=== PATIENT | female | born 1965 | race Caucasian/White ===

== ENCOUNTER → 2018-04-11 07:15 | Outpatient (CLI) | payer OTHER, SELFPAY ==
[2018-02-19 07:32] VITALS: BMI 24.1
--- NOTE | 2018-04-11 07:18 | BI_ITS ---
MAMMOGRAPHY - BILATERAL SCREENING REASON FOR EXAM: Female, 52 years old. Routine annual screening examination. PERTINENT HISTORY: Mother with breast cancer. Aunt with breast cancer. TECHNIQUE: Digital bilateral breast marlene (3D mammographic acquisition) in the CC and MLO projections. 2-D mediolateral oblique (MLO) and craniocaudad (CC) views of both breasts were obtained. CAD: Full Field Digital Mammography with Computer Added Detection was performed. COMPARISON: Comparison is made with prior examination dated January 12, 2017 and prior outside examination dated March 24, 2015. FINDINGS: Breast Composition: The breasts are extremely dense, which lowers the sensitivity of mammography. There is a 9.1 mm x 8.5 mm well-defined nodule in the upper deep lateral portion of the left breast. This has decreased in size. Adjacent to this, there is a persistent 1.7 cm x 1.8 cm well-defined nodule suggestive of a cyst. The previously seen nodular densities in the left breast have decreased in size. This also evidence of a 1.6 cm x 1 cm well-defined nodule in the inferior lateral aspect of the right breast. Prior sonogram demonstrated to be multiple bilateral cysts. BI/SCREENING MAMM (CAD), BILAT IMPRESSION: Since prior study, there is been a decrease in size of the bilateral nodular densities which were demonstrated to be multiple cysts on prior sonogram. Yearly follow-up mammogram recommended. (A) ASSESSMENT CATEGORY: BIRADS Category 2: Benign. A letter regarding these results will be sent to the patient by the facility within 30 days. Approximately 10% of breast cancers are not detected by mammography. A normal mammogram should not delay biopsy of a clinically suspicious abnormality. [id number] Electronically Signed: Ac Escobedo MD at 8:39 EST , Service support ,
== END ==
PROVIDERS: Family Provider Student in an Organized Health Care Education/Training Program; PCP Student in an Organized Health Care Education/Training Program; Referring Provider Nurse Practitioner Women's Health; Visit Provider Nurse Practitioner Women's Health
DX: Z12.31 Encounter for screening mammogram for malignant neoplasm of breast (principal)
CPT/HCPCS: 77063; 77067

== ENCOUNTER → 2019-04-14 14:13 | Outpatient (CLI) | payer OTHER, SELFPAY ==
[2018-04-15 14:58] VITALS: BMI 24.1
--- NOTE | 2019-04-14 14:14 | BI_ITS ---
MAMMOGRAPHY - BILATERAL SCREENING REASON FOR EXAM: Female, 53 years old. Routine annual screening examination. PERTINENT HISTORY: Mother with breast cancer. Aunt with breast cancer. TECHNIQUE: Digital bilateral breast franky (3D mammographic acquisition) in the CC and MLO projections. 2-D mediolateral oblique (MLO) and craniocaudad (CC) views of both breasts were obtained. CAD: Full Field Digital Mammography with Computer Added Detection was performed. COMPARISON: Comparison is made with prior examination dated April 11, 2018 and January 12, 2017. FINDINGS: Breast Composition: The breasts are extremely dense, which lowers the sensitivity of mammography. There are no dominant masses or suspicious calcifications there is a 2.6 x 2.2 cm well-defined nodule in the upper slightly lateral deep portion of the left breast. This has increased in size as compared to prior study. Stable 9.1 mm x 8.5 mm nodule in the mid left breast. This also evidence of a 1.4 cm x 2.1 cm well-defined nodule in the inferior lateral aspect of the right breast. Prior ultrasound of the breast demonstrated these to be multiple cysts. No other significant abnormalities are identified. BI/SCREEN MAMM (CAD) W/FRANKY BILAT IMPRESSION: Bilateral breast nodules as described more prominent on the left side. One nodule has increased in size. Correlation with ultrasound is recommended. Yearly follow-up mammogram recommended. (A) ASSESSMENT CATEGORY: BIRADS Category 0: Incomplete. Need additional imaging evaluation. A letter regarding these results will be sent to the patient by the facility within 30 days. Approximately 10% of breast cancers are not detected by mammography. A normal mammogram should not delay biopsy of a clinically suspicious abnormality. [id number] Electronically Signed: Ac Escobedo, at 15:20 EST , Service support ,
== END ==
PROVIDERS: Family Provider Student in an Organized Health Care Education/Training Program; PCP Student in an Organized Health Care Education/Training Program; Referring Provider Nurse Practitioner Women's Health; Visit Provider Nurse Practitioner Women's Health
DX: Z12.31 Encounter for screening mammogram for malignant neoplasm of breast (principal); Z80.3 Family history of malignant neoplasm of breast
CPT/HCPCS: 77063; 77067

== ENCOUNTER → 2019-04-15 15:26 | Outpatient (CLI) | payer OTHER, SELFPAY ==
[2018-04-15 14:58] VITALS: BMI 24.1
--- NOTE | 2019-04-15 15:29 | US_ITS ---
STUDY: ULTRASOUND BREAST - LEFT REASON FOR EXAM: Female, 53 years old. Abnormal screening mammogram. TECHNIQUE: Axial and longitudinal images of the LEFT breast were performed with a high resolution ultrasound transducer. # OF IMAGES: 55 COMPARISON: Comparison is made with prior mammogram dated April 14, 2019. FINDINGS: LEFT Breast: Multiple cysts are seen throughout the breast. The largest cyst measures 2.7 cm x 2.4 cm x 1.5 cm. This is at the 12:00 position in the breast at 2 cm from nipple. There is also evidence of a 1.2 cm x 0.6 cm x 0.8 cm well-defined hypoechoic solid nodule at the 4:00 position of the breast at 2 cm from nipple. A biopsy is recommended. US/Breast Limited Unilateral IMPRESSION: Multiple cysts are seen throughout the breast as described. There is a 1.2 cm x 0.6 cm x 0.8 cm solid nodule at the 4:00 position of the breast at 2 cm from nipple. A biopsy recommended. ASSESSMENT CATEGORY: BIRADS Category 4: Suspicious - Biopsy Should Be Considered. A letter regarding these results will be sent to the patient by the facility within 30 days. Electronically Signed: Ac Escobedo, at 16:17 EST , Service support ,
== END ==
PROVIDERS: PCP Student in an Organized Health Care Education/Training Program; Referring Provider Nurse Practitioner Women's Health; Visit Provider Nurse Practitioner Women's Health
DX: N60.02 Solitary cyst of left breast (principal)
CPT/HCPCS: 76642

== ENCOUNTER → 2019-04-25 13:42 | Outpatient (CLI) | payer OTHER, SELFPAY ==
[2019-04-21 14:39] VITALS: BMI 24.1
--- NOTE | 2019-04-25 13:57 | US_ITS ---
STUDY: ULTRASOUND BREAST - LEFT REASON FOR EXAM: Female, 53 years old. Ultrasound guided left breast biopsy. TECHNIQUE: Axial and longitudinal images of the LEFT breast were performed with a high resolution ultrasound transducer. # OF IMAGES: 11 COMPARISON: Comparison is made with prior ultrasound of the left breast dated April 15, 2019. FINDINGS: LEFT Breast: Under direct sonographic guidance, the surgeon performed core biopsies of the 1.2 cm x 0.6 cm x 0.8 cm hypoechoic nodule at the 4:00 position of the breast at 2 cm from the nipple. US/US Breast Biopsy 1st Lesion IMPRESSION: Successful ultrasound-guided biopsy of the hypoechoic nodule at the 4:00 position of the breast at 2 cm from the nipple. ASSESSMENT CATEGORY: BIRADS Category 2: Benign. A letter regarding these results will be sent to the patient by the facility within 30 days. Electronically Signed: Ac Escobedo, at 15:43 EST , Service support ,
--- NOTE | 2019-04-25 14:15 | BRBX_PTH ---
PATIENT: KELLEN DECKER LOC: [facility] U#:[id number] AGE/SX: 59/F ROOM: RE04/25/[address]: Dr. Murali Ackerman MD : 1965 BED: DIS: SPEC #: [id number] RECD: 04/25/19 14:34 STATUS: VILMA REPranav #: [id number] GIUSEPPE: 04/25/19 14:[address]: Murali Ackerman DEPT: SURGICAL PATHOLOGY RECD BY: John Mcclellan ENTERED: 04/28/19 08:19 SP TYPE: BREAST BX OTHR DR: Dr. Rajan Andrew DO Tissues: Left breast, NOS Procedures: Surgery Specimen Level IV HEADER OPERATION: Breast biopsy PRE-OP DIAGNOSIS: Left breast mass TISSUE SUBMITTED: Left breast biopsy 4 o'clock, 2 cm from nipple ISCHEMIC TIME: 1 minute FIXATION TIME: 77.5 hours MICROSCOPIC DIAGNOSIS Left breast mass, needle core biopsy: Focal involutional change. No evidence of malignancy. AM:deana 04/29/19 MICROSCOPIC DESCRIPTION Slides are reviewed. GROSS DESCRIPTION Received is one container labeled with the patient's name and not further designated. The specimen consists of an irregular fragment of sigala tissue measuring 0.2 x 0.1 x <0.1 cm. The specimen is totally submitted in one cassette. / AM:deana 04/28/19 TC:5 CPT: 26541
== END ==
PROVIDERS: PCP Student in an Organized Health Care Education/Training Program; Referring Provider Surgery; Visit Provider Surgery
DX: R92.8 Other abnormal and inconclusive findings on diagnostic imaging of breast (principal)
CPT/HCPCS: 19083; 88305

== ENCOUNTER → 2020-08-26 08:56 | Outpatient (CLI) | payer OTHER, SELFPAY ==
[2019-05-21 13:36] VITALS: BMI 24.1
--- NOTE | 2020-08-26 08:59 | RAD_ITS ---
STUDY: X-RAY - RIGHT KNEE REASON FOR EXAM: Female, 54 years old. MEDIAL KNEE PAIN TECHNIQUE: 4 view(s) of the knee. COMPARISON: None. FINDINGS: Normal visualized distal femur. Normal visualized proximal tibia and fibula. Normal proximal tibiofibular articulation. Normal medial femorotibial compartment. Normal lateral femorotibial compartment. Normal patellofemoral articulation. There is no demonstrated joint effusion. The soft tissue structures are unremarkable. RAD/Knee 4 or More Views IMPRESSION: Normal x-ray examination of the knee. Electronically Signed: Luis Arrington MD ([place]) at 15:17 EDT , Service support ,
== END ==
PROVIDERS: PCP Student in an Organized Health Care Education/Training Program
DX: M25.561 Pain in right knee (principal)
CPT/HCPCS: 73564

== ENCOUNTER → 2020-10-29 08:47 | Outpatient (CLI) | payer OTHER, SELFPAY ==
[2020-10-19 14:08] VITALS: BMI 28.3
--- NOTE | 2020-10-29 08:49 | BI_ITS ---
MAMMOGRAPHY - BILATERAL DIAGNOSTIC REASON FOR EXAM: Female, 55 years old. Left breast erythema. History of breast cysts. PERTINENT HISTORY: Mother with breast cancer. Aunt with breast cancer. TECHNIQUE: Digital bilateral breast marlene (3D mammographic acquisition) in the CC and MLO projections. 2-D mediolateral oblique (MLO) and craniocaudad (CC) views of both breasts were obtained. CAD: Full Field Digital Mammography with Computer Added Detection was performed. COMPARISON: Comparison is made with prior study dated 04/11/2018 and 04/14/2019. FINDINGS: Breast Composition: The breasts are extremely dense, which lowers the sensitivity of mammography. The palpable abnormality corresponds to a 5.6 cm x 3.3 cm nodular density in the upper central portion of the left breast. There are 2 stable nodular densities in the deep aspect of the left breast. There is a new 3.3 cm x 2.4 cm well-defined nodule in the deep upper lateral aspect of the right breast. Correlation with ultrasound is recommended. No other significant abnormalities are identified. BI/DIAG MAMM W/CAD, BILAT IMPRESSION: Increase in size of bilateral breast nodules as described. Correlation with ultrasound is recommended. ASSESSMENT CATEGORY: BIRADS Category 0: Incomplete. Need additional imaging evaluation. A letter regarding these results will be sent to the patient by the facility within 30 days. Approximately 10% of breast cancers are not detected by mammography. A normal mammogram should not delay biopsy of a clinically suspicious abnormality. Electronically Signed: Ac Escobedo MD at 9:52 EDT , Service support ,
--- NOTE | 2020-10-29 08:49 | US_ITS ---
STUDY: ULTRASOUND BREAST - RIGHT REASON FOR EXAM: Female, 55 years old. Abnormal screening mammogram. TECHNIQUE: Axial and longitudinal images of the RIGHT breast were performed with a high resolution ultrasound transducer. # OF IMAGES: 124 COMPARISON: Comparison is made with prior mammogram done earlier in the day as well as prior sonogram of the right breast dated 02/08/2017. FINDINGS: RIGHT Breast: 2 dominant cysts are seen in the upper outer quadrant of the right breast. The larger cyst is at the 9 o''clock position of the breast and measures 2.9 cm x 2.6 x 2 x 1.4 cm. IMPRESSION: 2 cysts are seen in the upper outer quadrant of the right breast. ASSESSMENT CATEGORY: BIRADS Category 2: Benign. A letter regarding these results will be sent to the patient by the facility within 30 days. Electronically Signed: Ac Escobedo MD at 12:53 EDT , Service support , STUDY: ULTRASOUND BREAST - LEFT REASON FOR EXAM: Female, 55 years old. Abnormal screening mammogram. TECHNIQUE: Axial and longitudinal images of the LEFT breast were performed with a high resolution ultrasound transducer. # OF IMAGES: 124 COMPARISON: Comparison is made with prior mammogram done earlier in the day as well as prior ultrasound of the left breast dated 04/25/2019. FINDINGS: LEFT Breast: Once again, multiple cysts are seen. The largest cyst is at the 12 o''clock position of the breast and measures 4.2 cm x 3.6 cm x 2.1 cm. US/Breast Limited Unilateral IMPRESSION: Multiple breast cysts. These have increased in size as compared to prior study. ASSESSMENT CATEGORY: BIRADS Category 2: Benign. A letter regarding these results will be sent to the patient by the facility within 30 days. Electronically Signed: Ac Escobedo MD at 12:54 EDT , Service support ,
== END ==
PROVIDERS: PCP Student in an Organized Health Care Education/Training Program; Referring Provider Nurse Practitioner Women's Health; Visit Provider Nurse Practitioner Women's Health
DX: L53.9 Erythematous condition, unspecified (principal); R92.8 Other abnormal and inconclusive findings on diagnostic imaging of breast
CPT/HCPCS: 76642; 77062; 77066; G0279

== ENCOUNTER → 2021-01-12 13:46 | Outpatient (CLI) | payer OTHER, SELFPAY ==
[2021-01-18 16:33] LABS: HPV APTIMA, High Risk Negative (Negative)
== END ==
PROVIDERS: PCP Student in an Organized Health Care Education/Training Program; Referring Provider Nurse Practitioner Women's Health; Visit Provider Nurse Practitioner Women's Health
DX: N76.0 Acute vaginitis (principal); N95.1 Menopausal and female climacteric states
CPT/HCPCS: 36415; 83001; 87070; 87205; 87624; 88175; G0145

== ENCOUNTER → 2021-02-07 16:53 | Outpatient (CLI) | payer OTHER, SELFPAY ==
--- NOTE | 2021-02-07 | EMB_PTH ---
PATIENT: KELLEN DECKER LOC: [facility] U#:[id number] AGE/SX: 59/F ROOM: RE02/07/[address]: DANIEL Samuel : 1965 BED: DIS: SPEC #: [id number] RECD: 02/07/21 16:34 STATUS: VILMA FAVIOLA #: [id number] GIUSEPPE: 02/07/21 00:[address]: Breanna Field NP DEPT: SURGICAL PATHOLOGY RECD BY: Parul Chicas ENTERED: 02/08/21 09:55 SP TYPE: ENDOM BX/C RON DR: Dr. Rajan Andrew DO Tissues: Endometrium, NOS Procedures: Surgery Specimen Level IV HEADER OPERATION: Endometrial biopsy PRE-OP DIAGNOSIS: Abnormal uterine bleeding TISSUE SUBMITTED: Endometrial biopsy MICROSCOPIC DIAGNOSIS Endometrial biopsy: Proliferative endometrium. SJ:deana 02/09/2021 MICROSCOPIC DESCRIPTION Slides are reviewed. GROSS DESCRIPTION Received is one container labeled with the patient's name and not further designated. The specimen consists of multiple fragments of pink hemorrhagic soft tissue mixed with mucoid tissue that in aggregate measure 3 x 2.5 x 0.3 cm. The specimen is totally submitted in one cassette. / SJ:deana 02/08/2021 TC:4 CPT: 54113
== END ==
PROVIDERS: PCP Student in an Organized Health Care Education/Training Program; Referring Provider Nurse Practitioner Women's Health; Visit Provider Nurse Practitioner Women's Health
DX: N93.9 Abnormal uterine and vaginal bleeding, unspecified (principal)
CPT/HCPCS: 88305

== ENCOUNTER → 2021-12-22 | Outpatient (CLI) | payer OTHER, SELFPAY ==
--- NOTE | 2021-12-22 07:25 | MRI_ITS ---
STUDY: MRI RIGHT KNEE REASON FOR EXAM: Female, 56 years old. TRAUMA, MEDIAL KNEE PAIN TECHNIQUE: Standardized fat and water weighted pulse sequences were obtained in all 3 orthogonal planes. COMPARISON: X-ray of the right knee dated AUGUST 26, 2020 FINDINGS: Complex tearing is present in the body of the medial meniscus mild intrasubstance signal abnormality is present in the posterior horn of the medial meniscus. Normal anterior horn. There is diffuse, less than 50% thickness articular cartilage loss of the medial femorotibial compartment. Mild to moderate patchy serpiginous signal in the posterior nonweightbearing aspect of the medial femoral condyle is consistent with avascular necrosis. No demonstrated fragmentation or displaced ossicles. Normal tibial plateau. Normal medial collateral ligamentous complex (MCL). Normal distal semimembranosus, gracilis and semitendinosus tendons. Mild intrasubstance degenerative signal and swelling is also present in the posterior horn root insertion of the lateral meniscus. Normal anterior horn and body of the lateral meniscus. Normal hyaline cartilage of the lateral femorotibial compartment. Normal lateral femoral condyle and tibial plateau. Normal proximal tibiofibular articulation. Normal lateral collateral (fibular) ligament. Normal popliteus tendon. Normal biceps femoris tendon. Normal anterior cruciate ligament (ACL). Normal posterior cruciate ligament (PCL). Normal congruent patellofemoral articulation. Normal hyaline cartilage of the patellofemoral compartment. Normal medial and lateral patellar retinaculum. Normal quadriceps tendon. Normal patellar tendon. Normal Hoffa''s fat pad. A small joint effusion is present. The soft tissues are unremarkable. The otherwise visualized osseous structures are unremarkable. MRI/Lower Ext Joint Only (Routine) IMPRESSION: 1. 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 Complex tearing of the body of the medial meniscus 3. Mild intrasubstance degenerative signal and swelling is also present in the posterior horn root insertion of the lateral meniscus. Normal anterior horn and body of the lateral meniscus. Electronically Signed: Galileo Barr MD at 15:19 EDT ,
== END | disposition home or self-care (01) ==
PROVIDERS: PCP Student in an Organized Health Care Education/Training Program; Referring Provider Family Medicine; Visit Provider Family Medicine
DX: M25.561 Pain in right knee (principal)
CPT/HCPCS: 73721

== ENCOUNTER → 2022-01-19 | Outpatient (CLI) | payer OTHER, SELFPAY ==
--- NOTE | 2022-01-19 12:58 | BD_ITS ---
STUDY: DUAL ENERGY X-RAY ABSORPTIOMETRY / DXA REASON FOR EXAM: Female, 56 years old. [id number] TECHNIQUE: Bone Mineral Density (BMD) measurements of lumbar spine and bilateral hips were obtained. COMPARISON: None. FINDINGS: Lumbar Spine (L1-L4): g/cm2 (1.133) / T-score (0.8) / Z-score (1.9) Findings are suggestive of normal bone density with a low fracture risk. Left Femur Total: g/cm2 (0.887) / T-score (-0.5) / Z-score (0.3) Left Femoral Neck: g/cm2 (0.820) / T-score (-0.3) / Z-score (0.8) Right Femur Total: g/cm2 (0.840) / T-score (-0.8) / Z-score (-0.1) Right Femoral Neck: g/cm2 (0.764) / T-score (-0.8) / Z-score (0.3) BD/Dexa Bone Density Study IMPRESSION: The patient is considered normal as outlined below according to World Jaziel Organization (WHO) criteria with a low fracture risk. Reference Information: The T-score is the number of standard deviations above or below the standard which is normal for young adults at their peak bone mineral density. The World Health Organization (WHO) interprets the T-scores as follows: Above -1 Normal bone density Between -1 and -2.5 Osteopenia Equal to / or below -2.5 Osteoporosis As a practical clinical guideline, osteopenia may be graded as follows: Mild -1 through -1.5 Moderate -1.6 through -2.0 Severe -2.1 through -2.4 The Z-score is the number of standard deviations above or below age-matched controls. A Z-score of less than -1.5 would be considered abnormal. References: 1. NIH Osteoporosis and Related Bone Diseases www osteo.org 2. International Society for Clinical Densitometry www iscd.org 3. National Osteoporosis Foundation www nof.org Electronically Signed: Ac Escobedo MD at 13:49 EST ,
--- NOTE | 2022-01-19 13:21 | BI_ITS ---
MAMMOGRAPHY - BILATERAL SCREENING REASON FOR EXAM: Female, 56 years old. Routine annual screening examination. PERTINENT HISTORY: Mother with breast cancer. Aunt with breast cancer. History of prior bilateral breast aspirations. TECHNIQUE: Digital bilateral breast franky (3D mammographic acquisition) in the CC and MLO projections. 2-D mediolateral oblique (MLO) and craniocaudad (CC) views of both breasts were obtained. CAD: Full Field Digital Mammography with Computer Added Detection was performed. COMPARISON: Comparison is made with prior examination 10/29/2020 and 04/14/2019. FINDINGS: Breast Composition: The breasts are heterogeneously dense, which may obscure small masses. There is a 5.8 cm x 4.7 cm well-defined nodular density in the central portion of the left breast. This is new as compared to prior study. Stable 7.1 mm nodule in the central posterior aspect of the left breast. The previously seen 2.4 cm x 3.3 cm nodule in the right breast as clear. No other significant abnormalities are identified. BI/SCRN MAMM (CAD)W/FRANKY BILAT IMPRESSION: Interval increase in size of a dominant nodule in the central portion of the left breast. Correlation with ultrasound is recommended. ASSESSMENT CATEGORY: BIRADS Category 0: Incomplete. Need additional imaging evaluation. A letter regarding these results will be sent to the patient by the facility within 30 days. Approximately 10% of breast cancers are not detected by mammography. A normal mammogram should not delay biopsy of a clinically suspicious abnormality. [id number] Electronically Signed: Ac Escobedo MD at 14:17 EST ,
== END | disposition home or self-care (01) ==
PROVIDERS: PCP Student in an Organized Health Care Education/Training Program; Visit Provider Student in an Organized Health Care Education/Training Program
DX: Z78.0 Asymptomatic menopausal state (principal); Z12.31 Encounter for screening mammogram for malignant neoplasm of breast
CPT/HCPCS: 77063; 77067; 77080

== ENCOUNTER → 2022-01-23 | Outpatient (CLI) | payer OTHER, SELFPAY ==
--- NOTE | 2022-01-23 07:48 | RAD_ITS ---
STUDY: X-RAY - LUMBAR SPINE REASON FOR EXAM: Female, 56 years old. PAIN TECHNIQUE: 3 view(s) of the lumbar spine were obtained. COMPARISON: None FINDINGS: Normal lumbar lordosis. There is no substantial scoliosis. There is a normal alignment of the vertebrae. Normal vertebral bodies and endplates. Normal disc space heights, disc space narrowing at L5/S1. There is no demonstrated fracture. The soft tissue structures are unremarkable. RAD/Lumbar Spine 2 or 3 Views IMPRESSION: Degenerative changes at L5/S1, otherwise unremarkable lumbar spine Electronically Signed: Vipin Drake MD at 10:56 EST ,
--- NOTE | 2022-01-23 07:49 | RAD_ITS ---
STUDY: X-RAY - PELVIS AND BILATERAL HIPS REASON FOR EXAM: Female, 56 years old. PAIN TECHNIQUE: AP view of the pelvis.? 2 views of the right hip, and 2 views of the left hip were obtained. COMPARISON: None. FINDINGS: There is a non-specific bowel gas pattern. Normal visualized soft tissue structures. Normal bilateral iliac wings, sacroiliac joints and visualized sacrum. Normal bilateral superior and inferior pubic rami. Normal pubic symphysis. Normal bilateral ischial tuberosities. Normal visualized right femoral head. Normal right acetabulum. Normal right hip joint. Normal visualized left femoral head. Normal left acetabulum. Normal left hip joint. RAD/Hips B/L min 2 views w/ Pelvis IMPRESSION: Normal x-ray examination of the pelvis and bilateral hips. Electronically Signed: Vipin Drake MD at 10:57 EST ,
--- NOTE | 2022-01-23 07:56 | RAD_ITS ---
STUDY: X-RAY - LEFT FOOT CLINICAL: Female, 56 years old. PAIN TECHNIQUE: 3 view(s) of the foot. COMPARISON: None. FINDINGS: Normal talus and tarsal bones. Calcaneal spurs Normal visualized subtalar, talonavicular, calcaneocuboid, tarsal and tarsometatarsal articulations. Normal metatarsi. Normal metatarsophalangeal joint of the great toe. Normal tibial and fibular sesamoid bones. Normal interphalangeal joint of the great toe. Normal phalanges of the great toe. Normal second through fifth metatarsophalangeal joints. Normal interphalangeal joints and phalanges of the lesser toes. The soft tissue structures are unremarkable. RAD/Foot min 3 Views IMPRESSION: Calcaneal spurs, otherwise unremarkable left foot Electronically Signed: Vipin Drake MD at 10:55 EST ,
--- NOTE | 2022-01-23 08:05 | RAD_ITS ---
STUDY: X-RAY - RIGHT FOOT CLINICAL: Female, 56 years old. PAIN TECHNIQUE: 3 view(s) of the foot. COMPARISON: None. FINDINGS: Normal talus and tarsal bones. Calcaneal spurs Normal visualized subtalar, talonavicular, calcaneocuboid, tarsal and tarsometatarsal articulations. Normal metatarsi. Normal metatarsophalangeal joint of the great toe. Normal tibial and fibular sesamoid bones. Normal interphalangeal joint of the great toe. Normal phalanges of the great toe. Normal second through fifth metatarsophalangeal joints. Normal interphalangeal joints and phalanges of the lesser toes. The soft tissue structures are unremarkable. RAD/Foot min 3 Views IMPRESSION: Calcaneal spurs, otherwise unremarkable right foot Electronically Signed: Vipin Drake MD at 10:56 EST ,
[2022-01-23 08:15] LABS: Absolute Lymphocyte Count 1.16 X10^3/uL (0.83-4.51); Absolute Neutrophil Count 2.6 X10^3/uL (2.0-7.7); Basophil# 0.04 X10^3/uL; Basophil% 0.9 % (0-1); Eosinophil# 0.15 X10^3/uL; Eosinophils% 3.5 % (0-5); Hematocrit 40.3 % (37-47); Hemoglobin 13.8 g/dL (12.0-15.0); Lymphocyte # 1.16 X10^3/ul (0.83-4.51); Lymphocyte % 26.9 % (19-41); Mean Corp Hgb Conc 34.2 g/dL (32-36); Mean Corpuscular Hgb 31.4 pg (27.0-32.0); Mean Corpuscular Volume 91.8 fL (81-99); Mean Platelet Vol. 10.1 fl (6.2-12.0); Monocyte# 0.34 X10^3/uL; Monocyte% 7.9 % (0-10); NRBC Flagged by Analyzer 0 % (0-5); Neutrophil # 2.62 X10^3/uL (2.7-7.7); Neutrophil % 60.6 % (47-70); Platelet Count 243 K/mm3 (150-450); RBC Distribution Width CV 11.8 % (11.6-14.6); Red Blood Count 4.39 M/mm3 (4.2-5.4); White Blood Count 4.3 K/mm3 (4.4-11.0)
[2022-01-23 08:44] LABS: Vitamin B12 251 pg/mL (211-911); Vitamin D,25 Hydroxy 19.2 ng/mL
[2022-01-23 08:51] LABS: ALB/GLOB Ratio 1.2 RATIO (0.9-2.4); AST(SGOT) 18 U/L (15-37); Alanine Aminotransfer ALT/SGPT 24 U/L (13-56); Albumin, Serum 3.8 g/dL (3.2-5.0); Alkaline Phosphatase 46 U/L (45-117); Anion Gap 7 (5-15); BUN 12 mg/dL (7-18); BUN/Creat Ratio 14.7 RATIO (10-20); Calcium,Total 9.5 mg/dL (8.5-10.1); Chloride 105 mmol/L (98-107); Cholesterol 253 mg/dL (200); Creatinine, Serum 0.82 mg/dL (0.55-1.02); EST Glomerular Filtration Rate 77 mL/min (>60); Est Glom Filt Rate - Afr Amer 93 mL/min (>60); Globulin 3.3 g/dL (2.2-4.2); Glucose 83 mg/dL (74-106); High Density Lipoprotein 103 mg/dL; Potassium 3.9 mmol/L (3.5-5.1); Protein, Total 7.1 g/dL (6.4-8.2); Sodium Level 138 mmol/L (136-145); Thyroid Stim Hormone (TSH) 3.68 uIU/mL (0.358-3.74); Triglycerides 89 mg/dL; Very Low Density Lipoprotein 18 mg/dL (5-40)
[2022-01-23 09:13] LABS: Hemoglobin A1c 4.8 % (3.8-5.6)
--- NOTE | 2022-01-23 09:23 | US_ITS ---
STUDY: ULTRASOUND BREAST - LEFT REASON FOR EXAM: Female, 56 years old. Abnormal screening mammogram. TECHNIQUE: Axial and longitudinal images of the LEFT breast were performed with a high resolution ultrasound transducer. # OF IMAGES: 25 COMPARISON: Comparison is made with prior mammogram dated 01/19/2022 and prior sonogram of the left breast dated 10/29/2020. FINDINGS: LEFT Breast: Once again, multiple cysts are seen. The largest cyst measures 5.5 cm x 4.2 cm x 2.6 cm. This is at the 2 o''clock position of the breast at 2 cm from the nipple. A similar-appearing cyst is seen at the 3 o''clock position of the breast at 5 cm from the nipple. This measures 2 cm x 1.8 cm x 0.7 cm. US/Breast Limited Unilateral IMPRESSION: Multiple cysts are seen. The largest cyst measures 5.5 cm x 4.2 cm by 2.6 cm. This is at the 12 o''clock position of the breast at 2 cm from the nipple. ASSESSMENT CATEGORY: BIRADS Category 2: Benign. A letter regarding these results will be sent to the patient by the facility within 30 days. Electronically Signed: Ac Escobedo MD at 11:04 EST ,
== END | disposition home or self-care (01) ==
PROVIDERS: PCP Student in an Organized Health Care Education/Training Program; Referring Provider Student in an Organized Health Care Education/Training Program; Visit Provider Nurse Practitioner Women's Health
DX: Z00.00 Encounter for general adult medical examination without abnormal findings (principal); E78.5 Hyperlipidemia, unspecified; M79.671 Pain in right foot; M79.672 Pain in left foot; M54.50 Low back pain, unspecified; G89.29 Other chronic pain; M25.551 Pain in right hip; M25.552 Pain in left hip; M25.561 Pain in right knee; R92.8 Other abnormal and inconclusive findings on diagnostic imaging of breast
CPT/HCPCS: 36415; 72100; 73521; 73630; 76642; 80053; 80061; 82306; 82607; 83036; 84439; 84443; 85025

== ENCOUNTER → 2022-02-16 | Outpatient (CLI) | payer OTHER, SELFPAY ==
--- NOTE | 2022-02-16 12:50 | RAD_ITS ---
STUDY: X-RAY - RIGHT KNEE REASON FOR EXAM: Female, 56 years old. Knee pain following injury. TECHNIQUE: 2 view(s) of the knee. COMPARISON: None. FINDINGS: Normal visualized distal femur. Normal visualized proximal tibia and fibula. Normal proximal tibiofibular articulation. Normal medial femorotibial compartment. Normal lateral femorotibial compartment. Normal patellofemoral articulation. The soft tissue structures are unremarkable. RAD/Knee 1 or 2 Views IMPRESSION: Normal x-ray examination of the knee. Electronically Signed: Ac Escobedo MD at 15:13 EST ,
== END | disposition home or self-care (01) ==
LOC: RAD 12:49
PROVIDERS: PCP Student in an Organized Health Care Education/Training Program; Visit Provider Student in an Organized Health Care Education/Training Program
DX: M25.561 Pain in right knee (principal)
CPT/HCPCS: 73560

== ENCOUNTER → 2024-06-13 | Outpatient (CLI) | payer OTHER, SELFPAY ==
--- NOTE | 2024-06-13 11:00 | BI_ITS ---
EXAM: SCRN MAMM (CAD)W/FRANKY BILAT 06/13/2024 CLINICAL HISTORY: F, Age 58 y/o , SCREEN FOR BREAST CANCER TECHNIQUE: Bilateral screening digital breast tomosynthesis with 2D and 3D images. Computer aided detection. COMPARISON: Prior exam(s) dated 01/19/2022, 01/23/2022. FINDINGS: TISSUE DENSITY: The breast tissue is heterogenously dense, which may obscure small masses. The mammogram demonstrates that the patient has dense breasts. Supplemental screening with whole breast ultrasound or MRI may be considered for further evaluation. Bilateral Breast Mammographic Findings: No significant masses, calcifications or other abnormalities are identified. BI/SCRN MAMM (CAD)W/FRANKY BILAT IMPRESSION: Right Breast: BIRADS 1 NEGATIVE. Left Breast: BIRADS 1 NEGATIVE. OVERALL FINAL ASSESSMENT: BIRADS 1 NEGATIVE. RECOMMENDATION: Routine annual follow-up in 1 Year A letter with findings and recommendations will be mailed to the patient. Reading Location: [id number]
== END | disposition home or self-care (01) ==
PROVIDERS: PCP Student in an Organized Health Care Education/Training Program; Referring Provider Nurse Practitioner Family; Visit Provider Nurse Practitioner Family
DX: Z12.31 Encounter for screening mammogram for malignant neoplasm of breast (principal)
CPT/HCPCS: 77063; 77067

== ENCOUNTER → 2024-11-11 | Outpatient (CLI) | payer OTHER, SELFPAY ==
--- NOTE | 2024-11-11 16:00 | BD_ITS ---
PROCEDURE: DEXA BONE DENSITY STUDY 11/11/2024 REASON FOR EXAM: F, age 59 y/o . Postmenopausal. TECHNIQUE: Procedure Code: BDDBD Modality: DX Procedure: DEXA BONE DENSITY STUDY COMPARISON: January 19, 2022. FINDINGS: BMD and T-SCORES Lumbar spine: 1.122 g/cm2, T-score 0.7 Levels: L1 through L4 Change from prior: Loss of 1%. Left femoral neck: 0.774 g/cm2, T-score -0.7 Femoral neck comparison data not recommended for monitoring change. Left total hip: 0.862 g/cm2, T-score -0.7 Change from prior: Loss of 2.8%. Right femoral neck: 0.766 g/cm2, T-score -0.7 Femoral neck comparison data not recommended for monitoring change. Right total hip: 0.843 g/cm2, T-score -0.8 Change from prior: Improvement of 9.4%. The World Health Organization has defined the following categories based on bone density: Normal bone density: T-score equal to or greater than -1.0 Osteopenia: T-score between -1.0 and -2.5 Osteoporosis: T-score equal to or less than -2.5 FRAX (or Comparable) Fracture Risk Assessment: 10 Year Probability of Fracture: Major Osteoporotic Fracture: 6.5% Hip Fracture: 0.3% (Note: FRAX is not to be reported in setting of normal range bone density, osteoporosis on DEXA, known history of osteoporosis, prior osteoporotic hip or vertebral fracture, or for any patient undergoing pharmacological treatment for bone loss.) The National Osteoporosis Foundation (NOF) recommends pharmacological treatment for patients with a FRAX 10-year risk of 3% or higher for a hip fracture, or 20% or higher for a major osteoporotic fracture, to prevent osteoporosis and reduce fracture risk. The patient does not meet the pharmacological treatment recommendations for prevention of osteoporosis. BD/Dexa Bone Density Study IMPRESSION: NORMAL T-SCORES. Recommend follow-up as clinically warranted. Reading [id number]
== END | disposition home or self-care (01) ==
LOC: OPBD 15:57
PROVIDERS: PCP Student in an Organized Health Care Education/Training Program; Referring Provider Nurse Practitioner Primary Care; Visit Provider Nurse Practitioner Primary Care
DX: Z78.0 Asymptomatic menopausal state (principal)
CPT/HCPCS: 77080

== ENCOUNTER → 2024-11-12 | Outpatient (CLI) | payer OTHER, SELFPAY ==
--- NOTE | 2024-11-12 12:54 | CT_ITS ---
PROCEDURE: LIMITED CHEST CT CARDIAC ONLY 11/12/2024 REASON FOR EXAM: CAD SCREENING, LOW CAD RISK TECHNIQUE: Procedure Code: [id number] Modality: CT Procedure: LIMITED CHEST CT CARDIAC ONLY CONTRAST: None One or more dose reduction techniques were used (e.g., Automated exposure control, adjustment of the mA and/or kV according to patient size, use of iterative reconstruction technique). RADIATION DOSE SUMMARY: CTDlvol: 12.19 mGy DLP: 219.48 mGycm COMPARISON: None FINDINGS: No significant coronary artery calcification is seen. The heart is nonenlarged. No evidence of pericardial effusion. The visualized portions of the lungs is unremarkable. CT/Limited Chest CT Cardiac Only IMPRESSION: No significant coronary artery calcification is seen. Reading Location: [place] [id number]
--- OUTSIDE RECORDS SUMMARY | 2024-11-12 23:12 | XMS RPT_ITS | CCD ---
Author Organization [facility] Care Team Providers Care Machine Staker Name Role Phone DIEGO Davila RN, Arlin Huang Unavailable Unavailgraciela Field WELDING TEACHER, Breanna Gracia Unavailable Marjan Hunt Unavailable Unavailable Rajan Malone DO Primary Care Provider Rajan Malone DO Primary Care Provider Rajan Malone DO Primary Care Provider Dr. Rajan Malone Primary Care Provider Dr. Rajan Malone Referring Provider Dr. Jacinto Shaw Attending Provider Rajan Malone DO Primary Care Provider Dr. Rajan Malone DO Primary Care Provider [phone] Callie Swann Attending Provider Christiano KIM-CCallie Referring Provider Sri SHOVEL LOGGER.Elke HURLEY Unavailable Norman SHOVEL LOGGER.Praveena HURLEY Unavailable RAJAN MALONE Primary Care Unavailable WILLIAM DRAKE Attending Unavailable RAJAN MALONE Attending Unavailable RAJAN MALONE Primary Care Unavailable PRAVEENA BERRY Referring Unavailable RAJAN MALONE Primary Care Unavailable SELF Referring Unavailable PRAVEENA BERRY Attending Unavailable RAJAN MALONE Primary Care Unavailable RAJAN MALONE Primary Care Unavailable WILLIAM DRAKE Referring Unavailable Praveena Berry Referring Unavailable Rajan Malone Primary Care Unavailable Manpreet Berryanda Ailyn Attending Unavailable Rajan Malone Primary Care Unavailable Malone Rajan Referring Unavailable Callie Alvarado Attending Unavailable Malone, Rajan Primary Care Unavailable Callie Alvarado Attending Unavailable Callie Alvarado Referring Unavailable Malone Rajan Primary Care Unavailable Praveena Berry Attending Unavailable Praveena Berry Referring Unavailable Kamran Rajan Primary Care Unavailable Praveena Berry Attending Unavailable Praveena Berry Referring Unavailable Kamran Rajan Attending Unavailable MaloneRajan marsh Referring Unavailable Malone, Rajan Primary Care Unavailable Medications Current Medications Medication Drug Class(es) Dates Sig (Normalized) Sig (Original) cholecalciferol 0.05 mg oral capsule (9 sources) Vitamin D Start: 01-12-2021 End: 03-14-2022 take 1 capsule by mouth once daily Cholecalciferol, Vitamin D3, 50 mcg (2,000 unit) cap Take 50 mcg by mouth once daily. 01/12/2021 Active meloxicam 15 mg oral tablet (15 sources) Nonsteroidal Anti-inflammatory Drug Start: 02-28-2022 take 1 tablet by mouth once daily meloxicam (MOBIC) 15 mg tablet Indications: Plantar fasciitis Take 1 tablet by mouth once daily. 90 tablet 1 02/28/2022 Active Start: 11-09-2021 take 1 tablet by emeli th once daily meloxicam (MOBIC) 15 mg tablet Take 1 tablet by mouth once daily. 30 tablet 0 11/09/2021 Active Comment on above: Take 1 tablet by emeli th once daily. metFORMIN hydrochloride 500 mg oral tablet (1 source) Biguanide Start: End: take 1 tablet by mouth once daily at breakfast metFORMIN (GLUCOPHAGE) 500 mg tablet Take 1 tablet by mouth daily with breakfast. 30 tablet 2 10/31/2024 01/29/2025 Active Completed/Discontinued Medications Medication Drug Class(es) Dates Sig (Normalized) Sig (Original) betamethasone 3 mg/ml / betamethasone acetate 3 mg/ml injectable suspension (1 source) Corticosteroid Start: 11-09-2021 End: 11-09-2021 betamethasone acetate-betamethason e sodium phosphate 6 mg injection (CELESTONE) Start: 11-09-2021 End: 11-09-2021 betamethasone acetate-betame thasone sodium phosphate 6 mg injection (CELESTONE) busPIRone hydrochloride 5 mg oral tablet (1 source) Start: 04-23-2019 End: 11-09-2021 take 2.5-5 mg by mouth every eight hours as needed busPIRone (BUSPAR) 5 mg tablet Take 0.5-1 tablets by mouth three times daily as needed (anxiety). 30 tablet 2 04/23/2019 11/09/2021 Discontinued (Course of therapy completed) Comment on above: Take 0.5-1 tablets b y mouth three times daily as needed (anxiety). diclofenac sodium 75 mg delayed release oral tablet (1 source) Nonsteroidal Anti-inflammatory Drug Start: 10-19-2021 End: 11-09-2021 take 1 tablet by mouth twice daily for pain diclofenac, EC, (VOLTAREN) 75 mg EC tablet Take 1 tablet by mouth twice daily. For pain/inflammation. Take with food. 30 tablet 0 10/19/2021 11/09/2021 Discontinued (Course of therapy completed) Comment on above: Take 1 tablet by emeli twice daily. For pain/inflammation. Take with food. escitalopram 10 mg oral tablet (1 source) Serotonin Reuptake Inhibitor Start: 12-14-2020 End: 11-09-2021 escitalopram oxalate (LEXAPRO) 10 mg tablet Indications: Chronic insomnia Take 5 mg once a day at bedtime x 2 weeks then increase to 10 mg a day at bedtime 90 tablet 3 12/14/2020 11/09/2021 Discontinued (Course of therapy completed) Comment on above: Take 5 mg once a day at bedtime x 2 weeks then increase to 10 mg a day at bedtime hydrocortisone 25 mg/ml topical cream (5 sources) Corticosteroid Start: 05-11-2014 End: 04-15-2018 Hydrocortisone 1 APPLIC cream with perineal applicator Discontinued 1 NMA TOPICAL 3 TIMES DAILY NEEDED as needed for Pain May 11, 2014 1:00am April 15, 2018 3:44pm Start: 05-11-2014 End: 04-15-2018 Hydrocortisone Discontinued 1 APPLIC TOPICAL 3 TIMES DAILY NEEDED May 11, 2014 12:00am April 15, 2018 2:44pm norethindrone acetate 5 mg oral tablet (5 sources) Start: 05-21-2019 End: 10-19-2020 take 1 tablet by mouth three times daily, then take 1 tablet by mouth twice daily Norethindrone Acetate (Aygestin) 5 mg tablet Discontinued 5 mg PO .COMPLEX 45 May 21, 2019 12:00am October 19, 2020 2:09pm 5 mg PO tid until bleeding stops X 24 hr then bid to finish Rx phenylephrine 0.0025 mg/mg rectal suppository (5 sources) alpha-1 Adrenergic Agonist Start: 05-11-2014 End: 04-15-2018 Phenylephrine Hcl 1 SUPP suppository Discontinued 1 NMA RECTAL TWICE A DAY May 11, 2014 1:00am April 15, 2018 3:44pm Problems Active Problems Problem Classification Problem Date Documented Date Episodic/Chronic Anxiety disorders (18 sources) Anxiety; Translations: [Other specified anxiety disorders] Onset: 04-23-2019 04-23-2019 Chronic Disorders of lipid metabolism (20 sources) Dyslipidemia; Translations: [Hyperlipidemia, unspecified] Onset: 04-23-2019 04-23-2019 Chronic Essential hypertension (2 sources) Essential hypertension; Translations: [Essential (primary) hypertension] Onset: 09-08-2024 09-08-2024 Chronic Menopausal disorders (7 sources) Menopausal syndrome; Translations: [Menopausal and female climacteric states] Onset: 10-18-2024 01-12-2021 Chronic Miscellaneous mental health disorders (18 sources) Chronic insomnia; Translations: [Psychophysiologic insomnia] Onset: 12-14-2020 12-14-2020 Chronic Nonmalignant breast conditions (3 sources) Unspecified lump in left breast, subareolar; Translations: [Unspecified lump in left breast, subareolar] Onset: 12-25-2016 12-25-2016 Other bone disease and musculoskeletal deformities (4 sources) Other osteonecrosis, other site; Translations: [Aseptic necrosis of bone, other] Onset: 10-29-2024 Chronic Other bone disease and musculoskeletal deformities (2 sources) Osteonecrosis, unspecified; Translations: [Osteonecrosis (HCC)] Onset: 10-16-2024 Chronic Other circulatory disease (3 sources) Elevated blood-pressure reading without diagnosis of hypertension; Translations: [Elevated blood-pressure reading, without diagnosis of hypertension] 10-29-2024 Episodic Other circulatory disease (2 sources) Elevated blood-pressure reading, without diagnosis of hypertension; Translations: [Elevated BP without diagnosis of hypertension] Onset: 10-29-2024 Episodic Other connective tissue disease (1 source) Pain in both feet; Translations: [Pain in right foot] Episodic Other connective tissue disease (4 sources) Plantar fasciitis; Translations: [Plantar fascial fibromatosis] 10-16-2024 Episodic Other female genital disorders (5 sources) Abnormal uterine bleeding; Translations: [Abnormal uterine and vaginal bleeding, unspecified] 03-14-2022 Chronic Comment on above: EMB WNL Other nervous system disorders (1 source) Other chronic pain; Translations: [Chronic pain of right knee] Onset: 10-16-2024 Chronic Other nervous system disorders (1 source) Paresthesia of skin; Translations: [Tingling of both feet] Onset: 10-18-2024 Episodic Other non-traumatic joint disorders (11 sources) Pain in right knee; Translations: [Pain in joint, lower leg] Onset: 12-27-2021 Episodic Other non-traumatic joint disorders (1 source) Hip pain; Translations: [Pain in right hip] Episodic Other nutritional; endocrine; and metabolic disorders (2 sources) Hypercalcemia; Translations: [Serum calcium elevated] Onset: 10-18-2024 Chronic Other screening for suspected conditions (not mental disorders or infectious disease) (16 sources) Patient encounter status; Translations: [Encounter for screening mammogram for malignant neoplasm of breast] Onset: 07-02-2024 Episodic Residual codes; unclassified (1 source) Postmenopausal state; Translations: [Asymptomatic menopausal state] Episodic Spondylosis; intervertebral disc disorders; other back problems (1 source) Chronic low back pain; Translations: [Chronic midline low back pain without sciatica] Episodic Unclassified (1 source) Gynecologic examination ; Translations: [Encounter for gynecological examination (general) (routine) without abnormal findings] Onset: 12-25-2016 12-25-2016 Unclassified (2 sources) Chronic pain of right knee 10-29-2024 Unclassified (1 source) Heterogeneously dense tissue of both breasts on mammography; Translations: [Heterogeneously dense tissue of both breasts on mammography] Onset: 10-16-2024 Past or Other Problems Problem Classification Problem Date Documented Da te Episodic/Chronic Gastrointestinal hemorrhage (18 sources) Rectal hemorrhage; Translations: [Hemorrhage of anus and rectum] Onset: 03-10-2014 Resolved: 10-16-2024 03-10-2014 Episodic Hemorrhoids (18 sources) External hemorrhoids; Translations: [Residual hemorrhoidal skin tags] Onset: 03-10-2014 03-10-2014 Episodic Nonmalignant breast conditions (20 sources) Breast lump; Translations: [Cyst of breast] Onset: 01-03-2013 12-25-2016 Episodic Other female genital disorders (2 sources) Vaginal odor; Translations: [Other specified noninflammatory disorders of vagina] Onset: 12-25-2016 12-25-2016 Episodic Other nutritional; endocrine; and metabolic disorders (19 sources) Body mass index 25-29 - overweight; Translations: [Overweight] Onset: 04-23-2019 04-23-2019 Episodic Other nutritional; endocrine; and metabolic disorders (1 source) Overweight; Translations: [Overweight (BMI 25.0-29.9)] Onset: 04-23-2019 Episodic Residual codes; unclassified (4 sources) Menopause present; Translations: [Asymptomatic menopausal state] Onset: 01-25-2022 10-16-2024 Episodic Results Test Name Value Interpretation Reference Range Facility [facility]24 [facility] STEPHANY DINH ([id number]) 1965 F Date Time Provider Department 10/31/24 RAJAN MALONE [facility] During your visit today, we recorded the following information about you: Hellen Perez MA 10/31/2024 9:49 AM Signed See pt message We had discussed low dose Metformin to help with weight loss. Can we move forward with that? Allergies As of Date: 10/31/2024 (No Known Allergies) Date Reviewed: 10/17/2024 Reviewed by: Praveena Berry APRN.COMMERCIAL CENSUS TAKER - Fully Assessed Order(s):metFORMIN (GLUCOPHAGE) 500 mg tabletTake 1 tablet by mouth daily with breakfast.Disp: 30 tabletRfl: 2 Prescriptions as of 10/31/2024 - metFORMIN (GLUCOPHAGE) 500 mg tablet Take 1 tablet by mouth daily with breakfast. - Cholecalciferol, Vitamin D3, 50 mcg (2,000 unit) cap Take 50 mcg by mouth once daily. Meds Comments as of 10/16/2024: Stephany does take a few different vitamins including vitamin d3, and a cardio focused type of vitamin. Problem List As Of Date 10/31/2024 Noted Resolved Solitary cyst of breast [N60.09] 01/03/2013 External hemorrhoid [K64.4] 03/10/2014 Rectal bleeding [K62.5] 03/10/2014 10/16/2024 Dyslipidemia [E78.5] 04/23/2019 Well adult exam [Z00.00] 04/23/2019 Overweight (BMI 25.0-29.9) [E66.3] 04/23/2019 Situational anxiety [F41.8] 04/23/2019 Chronic insomnia [F51.04] 12/14/2020 Asymptomatic menopausal state [Z78.0] 01/25/2022 Chronic pain of right knee [M25.561, G89.29] 12/27/2021 Plantar fasciitis [M72.2] Prescriptions ordered this encounter Disp Refills Start End METFORMIN 500 MG TABLET 30 t* 2 10/31/2024 01/29/2025 Route: PO Sig: Take 1 tablet by mouth daily with breakfast. Encounter Status:Closed by PRAVEENA BERRY on 10/31/24 [facility] CNOVon 10-29-2024 CNOV Office Visit ([facility] ) BRIANNESTEPHANY A ([id number]) 1965 F Date Time Provider Department 10/29/24 10:20 AM RAJAN MALONE [facility] During your visit today, we recorded the following information about you: Temperature Pulse Respiration Blood pressure 98 degrees 68/minute 12/minute 140/86 Weight Height 82.6 kg 1.73 m Rajan Malone, DO 10/29/2024 10:[address] Arlin Gonzales Primary care physician Rajan Malone, DO 10/29/2024 12:05 PM Signed CC: Stephany Dinh is a 59 year old female who presents to the office for physical HPI: Blood pressure was mildly elevated in 140s/80s. Was seen in office and had 130s/80s in primary care office. Heart rate in the office and at rest has been controlled. She is not wanting to start on medication for this. Doesn't have symptoms of dyspnea or dizziness/LH or syncope. Is trying to make modifications in her exercise- increasing her walking. Also is eating overall healthy diet. Cutting back on some alcohol intake as well. Also limiting salt and processed foods. The 10-year ASCVD risk score (Massimo CARRILLO, et al., 2019) is: 2.7% Values used to calculate the score: Age: 59 years Clincally relevant sex: Female Is Non- : No Diabetic: No Tobacco smoker: No Systolic Blood Pressure: 140 mmHg Is BP treated: No HDL Cholesterol: 87 mg/dL Total Cholesterol: 215 mg/dL Mood, doing well overall. No new concerns. Right knee pain, chronic, seems to be worsening some. With prolonged standing and walking worse. Inner medial knee joint. Hx of some avascular necrosis. She is concerned that this is worsening. Hasn't had surgery in the past. Hasn't recently had PHYSICAL THERAPY or seen Orthopedics. PAST MEDICAL HISTORY Diagnosis Date Plantar fasciitis Solitary cyst of breast left >right breast, benign PAST SURGICAL HISTORY Procedure Laterality Date ADENOIDECTOMY PRIMARY Adenoidectomy COLONOSCOPY FLX DX W/COLLJ SPEC WHEN PFRMD 3-2-15 TONSILLECTOMY PRIMARY/SECONDARY Tonsillectomy Social History: SOCIAL HISTORY[1] FAMILY HISTORY Problem Relation Age of Onset Hearing Loss Mother Hypertension Mother Breast Cancer Mother DCIS Lung Cancer Mother Psychiatry Sister Colon Cancer Maternal Grandmother great Cancer Maternal Grandmother bone Cancer Maternal Aunt lung Breast Cancer Maternal Aunt Cancer Maternal Uncle esophageal Cancer Other cousin Current Outpatient prescriptions: Cholecalciferol, Vitamin D3, 50 mcg (2,000 unit) cap Take 50 mcg by mouth once daily. Allergies: ALLERGIES No Known Allergies ROS: See HPI PE: 10/29/24 1021 BP: 140/86 Pulse: 68 Resp: 12 Temp: 36.7 ?C (98 ?F) TempSrc: Right Tympanic Weight: 82.6 kg (182 lb) Height: 173 cm (5' 8.11) Gen: AANDO, NAD, non-toxic appearing, Pleasant, cooperative, well dressed HEENT: NT/AC, PERRLA, wearing glasses, EOMs intact b/l, nares clear and patent b/l, pharynx without erythema, exudate or lesions. Uvula midline. MMM, EACs without erythema or debris. TMs pearly barfield with intact landmarks b/l. Neck: supple, No cervical LAD, no thyromegaly, no carotid bruits CV: RRR, normal S1 and S2, no murmurs, no gallops, no rubs, Pulses 2+ and symmetric in UE and LE b/l Lungs: normal respiratory effort, CTA b/l, no wheezing or rhonchi or rales Abd: soft, NT, ND, +BS, no hepatosplenomegaly MS: + joint line TTP right knee joint with mild effusion present and decreased ROM Neuro: CN II-XII intact b/l, strength 5/5 b/l UE and LE, DTRs 2/4 UE and LE, sensation intact. Skin: warm, dry, intact, No rashes or lesions on exposed skin. No edema, normal peripheral pulses ASSESSMENT/PLAN: 1. Well adult exam - ICD9: V70.0, ICD10: Z00.00 (primary diagnosis) - Counseled on healthy diet and regular exercise - Colorectal cancer screening - ordered Cologuard - Breast cancer screening - needs to consider MRI breast due to her density She is cutting back on alcohol intake to help her future health risks and BLOOD PRESSURE as well. 2. Screening for colon cancer - ICD9: V76.51, ICD10: Z12.11 She isn't interested in colonoscopy - COLOGUARD 3. Elevated BP without diagnosis of hypertension - ICD9: 796.2, ICD10: R03.0 - Encouraged dietary sodium restriction/DASH diet - Recommended regular aerobic exercise. - Recommend home blood pressure monitoring, to bring results in on next visit - Discussed need and benefit for weight loss. - Reviewed risks of HTN and principles of treatment - Goal of BP <130/80 - US RENAL ARTERY [facility] - US CAROTID ARTERIES [facility] 4. Chronic pain of right knee - ICD9: 719.46, 338.29, ICD10: M25.561, G89.29 MRI knee as previously ordered then start in PT - CONSULT TO PHYSICAL THERAPY 5. 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) - ICD9: 733.49, ICD10: M87.88 MRI knee as previ (more content not included)... Normal [facility] 25(OH)D3 SerPl-ncon 2024 25-hydroxyvitamin D3 [Mass/Vol] 36.4 ng/mL Normal 31.0-80.0 [facility] Comment on above: Order Comment: Adriana fitzgerald Type: BLOOD SPECIMEN Ordering Facility: [facility] Address: [address] [place] [address] Result Comment: Clas sification of 25 OH Vitamin D status: Deficiency/Insufficiency: < or = 30 ng/ml. Sufficiency/Optimal Levels: 31-80 ng/mL Toxicity: > 100 ng/mL. Test performed by chemiluminescent immunoassay. Performed By: #### 1 989-3 #### [facility] CLIA [id number] [address] [place] [address] [place] Lipid 1996 panelon Cholesterol [Mass/Vol] 215 mg/dL High <200 [facility] Comment on above: Order Comment: Adriana fitzgerald Type: BLOOD SPECIMEN Ordering Facility: [facility] Address: [address] [place] [address] Result Comment: <200 mg/dL, Desirable 200-239 mg/dL, Borderline high >239 mg/dL, High Performed By: #### 2 4331-1, 3051-0, 3024-7, 3016-3 #### [facility] CLIA [id number] [address] [place] [address] [place] Cholesterol in HDL [Mass/Vol] 87 mg/dL Normal >39 [facility] Comment on above: Order Comment: Adriana fitzgerald Type: BLOOD SPECIMEN Ordering Facility: [facility] Address: [address] [place] [address] Result Comment: 40-5 9 mg/dL, Acceptable >59 mg/dL, High: Negative risk factor for coronary heart disease <40 mg/dL, Low: Positive risk factor for coronary heart disease Performed By: #### 2 4331-1, 3051-0, 3024-7, 6-3 #### [facility] CLIA [id number] [address] [place] Cholesterol in LDL [Mass/Vol] 108 mg/dL High <100 [facility] Comment on above: Order Comment: Adriana fitzgerald Type: BLOOD SPECIMEN Ordering Facility: [facility] Address: [address] [place] [address] Result Comment: <100 mg/dL, Optimal 100-129 mg/dL, Near optimal/above optimal 130-159 mg/dL, Borderline high 160-189 mg/dL, High >189 mg/dL, Very high Secondary prevention optimal LDL Cholesterol levels are recommended to be <70 mg/dL LDL cholesterol is calculated using the Kumar-NIH equation. Performed By: #### 2 4331-1, 3051-0, 3023-7, 3 #### [facility] CLIA [id number] [address] [place] [address] [place] Cholesterol in LDL/Cholesterol in HDL [Mass ratio] 1.24 {ratio} Normal <2.54 [facility] Comment on above: Order Comment: Adriana fitzgerald Type: BLOOD SPECIMEN Ordering Facility: [facility] Address: [address] [place] [address] Result Comment: Refe rence: 1. National Cholesterol Education Program ATP III Guideline At-A-Glance Quick Desk Reference: National Heart, Lung, and Blood Carter. National Institutes of Health. 2001: NIH Publication No. 01-3305. 2. An International Atherosclerosis Society position paper: global recommendations for the management of dyslipidemia: executive summary, Atherosclerosis. 2014: 232(2):410-413. Performed By: #### 2 4331-1, 3051-0, 4-7, 3015-3 #### [facility] CLIA [id number] [address] [place], [place] [id number] [place] Cholesterol in VLDL [Mass/Vol] 19 mg/dL Normal <30 [facility] Comment on above: Order Comment: Speci men Type: BLOOD SPECIMEN Ordering Facility: [facility] Address: [address] [place], [place] [id number] Performed By: #### 2 4331-1, 3051-0, 3024-7, 3016-3 #### [facility] CLIA [id number] [address] [place], [place] [id number] [place] Cholesterol non HDL [Mass/Vol] 128 mg/dL Normal <130 [facility] Comment on above: Order Comment: Speci men Type: BLOOD SPECIMEN Ordering Facility: [facility] Address: [address] [place] [address] Result Comment: <130 mg/dL, Optimal 130-159 mg/dL, Near optimal/above optimal 160-189 mg/dL, Borderline high 190-219 mg/dL, High >219 mg/dL, Very high Secondary prevention optimal non HDL Cholesterol levels are recommended to be <100 mg/dL Performed By: #### 2 4331-1, 3051-0, 3024-7, 3016-3 #### [facility] CLIA [id number] [address] [place] [address] [place] Cholesterol.total /Cholesterol in HDL [Mass ratio] 2.47 {ratio} Normal <5.10 [facility] Comment on above: Order Comment: Speci men Type: BLOOD SPECIMEN Ordering Facility: [facility] Address: [address] [place], [place] [id number] Performed By: #### 2 4331-1, 3051-0, 3024-7, 3016-3 #### [facility] CLIA [id number] [address] [place], [place] [id number] [place] FASTING TIME 10 hrs Normal [facility] Comment on above: Order Comment: Speci men Type: BLOOD SPECIMEN Ordering Facility: [facility] Address: [address] [place] [address] Performed By: #### 2 4331-1, 3051-0, 302-7, 3016-3 #### [facility] CLIA [id number] [address] [place] [address] [place] Triglyceride [Mass/Vol] 115 mg/dL Normal <150 [facility] Comment on above: Order Comment: Speci men Type: BLOOD SPECIMEN Ordering Facility: [facility] Address: [address] [place] [address] Result Comment: <150 mg/dL, Normal 150-199 mg/dL, Borderline high 200-499 mg/dL, High >499 mg/dL, Very high Performed By: #### 2 4331-1, 305-0, 3023-09, 3015-3 #### [facility] CLIA [id number] [address] [place] [address] [place] PTH-Intact SerPl-mCncon 08-0 Parathyrin.intact [Mass/Vol] 38 pg/mL Normal 15-65 [facility] Comment on above: Order Comment: Speci men Type: BLOOD SPECIMEN Ordering Facility: [facility] Address: [address] [place] [address] Performed By: #### 5 7021-8 #### [facility] CLIA [id number] [address] [place] [address] [place] T3Free SerPl-mCncon 10-19-19 25 Free T3 [Mass/Vol] 3.2 pg/mL Normal 2.3-4.1 [facility] Comment on above: Order Comment: Speci men Type: BLOOD SPECIMEN Ordering Facility: [facility] Address: [address] [place] [address] Performed By: #### 2 4331-1, 3051-0, 7, 3015-3 #### [facility] CLIA [id number] [address] [place] [address] [place] T4 Free SerPl-mCncon 08-09-2 025 Free T4 [Mass/Vol] 1.2 ng/dL Normal 0.9-1.7 [facility] Comment on above: Order Comment: Adriana fitzgerald Type: BLOOD SPECIMEN Ordering Facility: [facility] Address: [address] [place] [address] Performed By: #### 2 4331-1, 3051-0, 3024-7, 3016-3 #### [facility] CLIA [id number] [address] [place] [address] [place] TSH SerPl-aCncon 10-18-2024 TSH Qn 2.860 m[IU]/L Normal 0.270-4.200 [facility] Comment on above: Order Comment: Speci amilcar Type: BLOOD SPECIMEN Ordering Facility: [facility] Address: [address] [place] [address] Performed By: #### 2 4331-1, 3051-0, 3024-7, 3016-3 #### [facility] CLIA [id number] [address] [place] [address] [place] VITAMIN B1 (THIAMINE), WHOLE BLOODon 10-18-2024 Thiamine (Bld) [Moles/Vol] 207.2 nmol/L Normal 84.3-213.3 [facility] Comment on above: Order Comment: Adriana fitzgerald Type: BLOOD SPECIMEN Ordering Facility: [facility] Address: [address] [place] [address] Result Comment: This assay measures the concentration of thiamine diphosphate (TDP), the primary active form of vitamin B1. Approximately 90 percent of vitamin B1 present in whole blood is TDP. Thiamine and thiamine monophosphate, which comprise the remaining 10 percent, are not measured. This test was developed, and its performance characteristics determined by the [facility] Department of Pathology and Laboratory Medicine. It has not been cleared or approved by the FDA. The [facility] Department of Pathology and Laboratory Medicine is regulated under CLIA as qualified to perform high-complexity testing. This test is used for clinical purposes. It should not be regarded as investigational or for research. Performed By: #### 5 7021-8 #### [facility] CLIA [id number] [address] [place] [address] [place] VITAMIN B6/PYRIDOXINon 10-18 VITAMIN B6 155.4 nmol/L High 20.0-125.0 [facility] Comment on above: Order Comment: Speci men Type: BLOOD SPECIMEN Ordering Facility: [facility] Address: [address] [place] [address] Result Comment: INTE RPRETIVE INFORMATION: Vitamin B6 (Pyridoxal 5-Phosphate) Pyridoxal 5'-phosphate measured in a specimen collected following an 8-hour or overnight fast accurately indicates vitamin B6 nutritional status. Non-fasting specimen concentration reflects recent vitamin intake. This test was developed and its performance characteristics determined by [facility]. It has not been cleared or approved by the [place] Food and Drug Administration. This test was performed in a CLIA certified laboratory and is intended for clinical purposes. Performed By: [facility] [address] [place] [address] Tipple Supervisor: Braeden Barrientos MD, PhD CLIA Number: [id number] Performed By: #### V ITB6 #### [facility] CLIA [id number] [address] [place] [address] Vit B12 [facility] 025 Cobalamin (Vitamin B12) [Mass/Vol] 237 pg/mL Normal 232-1245 [facility] Comment on above: Order Comment: Speci men Type: BLOOD SPECIMEN Ordering Facility: [facility] Address: [address] [place] [address] Performed By: #### 5 7021-8 #### [facility] CLIA [id number] [address] [place] [address] [place] CNOVon 10-16-2024 CNOV Office Visit (FAMPWS ) BRIANNESTEPHANY ([id number]) 1965 F Date Time Provider Department 10/16/24 8:40 AM PRAVEENA BERRY During your visit today, we recorded the following information about you: Pulse Blood pressure Weight 93/minute 136/88 83.4 kg Praveena Berry APRN.CNP 10/17/2024 5:11 PM Signed This is a 59 year old female who presents today with: One month BP follow up, and has other health maintenance related things she would like to talk about Follow up from 09/08 OV with William Drake: ASSESSMENT/PLAN: 1. Hypertension, essential - ICD9: 401.9, ICD10: I10 (primary diagnosis) - New diagnosis - Recommend home blood pressure monitoring, to bring results to next visit - Encouraged sodium restriction, DASH or Mediterranean diet - Recommend regular aerobic exercise - Decrease alcohol consumption, currently drinking equivalent of 8 shots of liquor daily - COMPREHENSIVE METABOLIC PANEL - COMPLETE BLOOD COUNT AND DIFFERENTIAL 2. Screening for diabetes mellitus - ICD9: V77.1, ICD10: Z13.1 - HEMOGLOBIN A1C 3. Encounter for lipid screening for cardiovascular disease - ICD9: V77.91, V81.2, ICD10: Z13.220, Z13.6 - LIPID PANEL, NONFASTING 4. Overweight (BMI 25.0-29.9) - ICD9: 278.02, ICD10: E66.3 -Stable William Drake APRN.CNP Note Details Instructions Return in about 2 weeks (around 09/22/2024) for annual physical-40min, BP check. HISTORY OF PRESENT ILLNESS: Hypertension: Most Recent 10/18/21 - 10/16/24 01/11/22 02/28/22 11:19 09/08/24 10:45 10/16/24 08:41 BP 136/88 10/16/24 08:41 136/84 120/80 150/75 136/88 - Not currently on antihypertensive medication; prefers lifestyle modifications before considering pharmacotherapy. - Reports situational stress levels, contributing to elevated BP. - Discontinued home BP monitoring due to inaccurate readings from a faulty device which causes her increased anxiety and ultimately elevated BPs - Recent weight loss of 12 lbs over the past couple of years, reports that she has recently as well started a health journey as she knows she is approaching 60, her mother just passed, and she has things she needs to work on - Denies consistent dizziness or nausea; occasional headaches at work, resolving upon leaving the air-conditioned environment. Denies changes in vision Situational Anxiety: - Reports increased anxiety following a negative experience with a healthcare provider - Engages in deep breathing exercises and considering yoga to manage anxiety. - Family history of anxiety; mother also affected. - Experiencing significant stress due to recent life events, including the passing of her mother in July, managing her father's finances, and home renovations. Alcohol Use: - Consumes alcohol regularly; currently tapering intake with the goal of cessation by November. - Acknowledges alcohol use as a coping mechanism for anxiety and sleep issues, realizes that this can add to those issues after researching - Denies being an alcoholic but that she and her do drink too much enjoying their nightly cocktails; working on reducing alcohol consumption gradually. Fibrocystic Breasts: - History of extremely fibrocystic breasts, making mammograms difficult to interpret. - Considering alternating mammograms with breast MRIs every six months for better evaluation. 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 - Recent onset of mild, shifting joint aches in the knee, thigh, ankle, and calf. - Pain not exacerbated by movement; more noticeable when still. Being active actually helps it. It comes and goes. - Previous consultation with a knee specialist in February 2022; advised against knee replacement due to age. Paresthesia in Toes: - Reports occasional tingling sensation in both big toes. - Sensation is not constant and not associated with any specific position or discoloration. - Denies being diabetic HLD Lipid panel elevated, response on lab results from provider: Please let patient know her lipids are significantly elevated. Would recommend statin however statins and alcohol use are contraindicated so for now continue to decrease ETOH consumption and follow low cholesterol diet. - patient is currently working on lifestyle changes to modify this and would like a recheck. It was also a nonfasting and ones in the past were fasting Total Cholesterol, Nonfasting Date Value Ref Range Status 09/08/2024 288 (H) <200 mg/dL Final Comment: <200 mg/dL, Desirable 200-239 mg/dL, Borderline high >239 mg/dL, High HDL Cholesterol, Nonfasting Date Value Ref Range Status 09/08/2024 108 >39 mg/dL Final Comment: 40-59 mg/dL (more content not included)... Normal [facility] CBC W Auto Differential pane l (Bld)on 09-08-2024 Basophils (Bld) [#/Vol] 0.04 10*3/uL [facility] Basophils/100 WBC (Bld) 0.7 % [facility] Differential cell count method Nom (Bld) Auto [facility] Eosinophils (Bld) [#/Vol] 0.21 10*3/uL [facility] Eosinophils/100 WBC (Bld) 3.5 % [facility] Erythrocyte distribution width (RBC) [Ratio] 12.3 % 11.5 - 15.0 % [facility] Hematocrit (Bld) [Volume fraction] 44.9 % 36.0 - 46.0 % [facility] Hemoglobin (Bld) [Mass/Vol] 15.4 g/dL 11.5 - 15.5 g/dL [facility] Immature granulocytes (Bld) [#/Vol] [facility] Immature granulocytes/100 WBC (Bld) 0.3 % [facility] Lymphocytes (Bld) [#/Vol] 1.19 10*3/uL [facility] Lymphocytes/100 WBC (Bld) 20.1 % [facility] MCH (RBC) [Entitic mass] 32.8 pg 26.0 - 34.0 pg [facility] MCHC (RBC) [Mass/Vol] 34.3 g/dL 30.5 - 36.0 g/dL [facility] MCV (RBC) [Entitic vol] 95.5 fL 80.0 - 100.0 fL [facility] Monocytes (Bld) [#/Vol] 0.47 10*3/uL [facility] Monocytes/100 WBC (Bld) 7.9 % [facility] Neutrophils (Bld) [#/Vol] 4 10*3/uL [facility] Neutrophils/100 WBC (Bld) 67.5 % [facility] Nucleated RBC (Bld) [#/Vol] [facility] Nucleated RBC/100 WBC (Bld) [Ratio] 0 % /100 WBC [facility] Platelet mean volume (Bld) [Entitic vol] 10.4 fL 9.0 - 12.7 fL [facility] Platelets (Bld) [#/Vol] 267 10*3/uL [facility] RBC (Bld) [#/Vol] 4.7 10*6/uL 3.90 - 5.2 0 m/uL [facility] WBC (Bld) [#/Vol] 5.93 10*3/uL [facility] Basophils (Bld) [#/Vol] 0.04 10*3/uL Normal <0.11 [facility] Comment on above: Order Comment: Speci men Type: BLOOD SPECIMEN Ordering Facility: [facility] Address: [address] [place] [address] Performed By: #### 5 7021-8 #### [facility] CLIA [id number] [address] [place] [address] [place] Basophils/100 WBC (Bld) 0.7 % Normal [facility] Comment on above: Order Comment: Speci men Type: BLOOD SPECIMEN Ordering Facility: [facility] Address: [address] [place] [address] Performed By: #### 5 7021-8 #### [facility] CLIA [id number] [address] [place] [address] [place] Differential cell count method Nom (Bld) Auto Normal [facility] Comment on above: Order Comment: Speci men Type: BLOOD SPECIMEN Ordering Facility: [facility] Address: [address] [place] [address] Performed By: #### 5 7021-8 #### [facility] CLIA [id number] [address] [place] [address] [place] Eosinophils (Bld) [#/Vol] 0.21 10*3/uL Normal <0.46 [facility] Comment on above: Order Comment: Speci men Type: BLOOD SPECIMEN Ordering Facility: [facility] Address: [address] [place] [address] Performed By: #### 5 7021-8 #### [facility] CLIA [id number] [address] [place] [address] [place] Eosinophils/100 WBC (Bld) 3.5 % Normal [facility] Comment on above: Order Comment: Speci men Type: BLOOD SPECIMEN Ordering Facility: [facility] Address: [address] [place] [address] Performed By: #### 5 7021-8 #### [facility] CLIA [id number] [address] [place] [address] [place] Erythrocyte distribution width (RBC) [Ratio] 12.3 % Normal 11.5-15.0 [facility] Comment on above: Order Comment: Speci men Type: BLOOD SPECIMEN Ordering Facility: [facility] Address: [address] [place] [address] Performed By: #### 5 7021-8 #### [facility] CLIA [id number] [address] [place] [address] [place] Hematocrit (Bld) [Volume fraction] 44.9 % Normal 36.0-46.0 [facility] Comment on above: Order Comment: Speci men Type: BLOOD SPECIMEN Ordering Facility: [facility] Address: [address] [place] [address] Performed By: #### 5 7021-8 #### [facility] CLIA [id number] [address] [place] [address] [place] Hemoglobin (Bld) [Mass/Vol] 15.4 g/dL Normal 11.5-15.5 [facility] Comment on above: Order Comment: Speci men Type: BLOOD SPECIMEN Ordering Facility: [facility] Address: [address] [place] [address] Performed By: #### 5 7021-8 #### [facility] CLIA [id number] [address] [place] [address] [place] Immature granulocytes (Bld) [#/Vol] 10*3/uL Normal <0.10 [facility] Comment on above: Order Comment: Speci men Type: BLOOD SPECIMEN Ordering Facility: [facility] Address: [address] [place] [address] Performed By: #### 5 7021-8 #### [facility] CLIA [id number] [address] [place] [address] [place] Immature granulocytes/100 WBC (Bld) 0.3 % Normal [facility] Comment on above: Order Comment: Speci men Type: BLOOD SPECIMEN Ordering Facility: [facility] Address: [address] [place] [address] Performed By: #### 5 7021-8 #### [facility] CLIA [id number] [address] [place] [address] [place] Lymphocytes (Bld) [#/Vol] 1.19 10*3/uL Normal 1.00-4.00 [facility] Comment on above: Order Comment: Speci men Type: BLOOD SPECIMEN Ordering Facility: [facility] Address: [address] [place] [address] Performed By: #### 5 7021-8 #### [facility] CLIA [id number] [address] [place] [address] [place] Lymphocytes/100 WBC (Bld) 20.1 % Normal [facility] Comment on above: Order Comment: Speci men Type: BLOOD SPECIMEN Ordering Facility: [facility] Address: [address] [place] [address] Performed By: #### 5 7021-8 #### [facility] CLIA [id number] [address] [place] [address] [place] MCH (RBC) [Entitic mass] 32.8 pg Normal 26.0-34.0 [facility] Comment on above: Order Comment: Speci men Type: BLOOD SPECIMEN Ordering Facility: [facility] Address: [address] [place] [address] Performed By: #### 5 7021-8 #### [facility] CLIA [id number] [address] [place] [address] [place] MCHC (RBC) [Mass/Vol] 34.3 g/dL Normal 30.5-36.0 [facility] Comment on above: Order Comment: Speci men Type: BLOOD SPECIMEN Ordering Facility: [facility] Address: [address] [place] [address] Performed By: #### 5 7021-8 #### [facility] CLIA [id number] [address] [place] [address] [place] MCV (RBC) [Entitic vol] 95.5 fL Normal 80.0-100.0 [facility] Comment on above: Order Comment: Speci men Type: BLOOD SPECIMEN Ordering Facility: [facility] Address: [address] [place] [address] Performed By: #### 5 7021-8 #### [facility] CLIA [id number] [address] [place] [address] [place] Monocytes (Bld) [#/Vol] 0.47 10*3/uL Normal <0.87 [facility] Comment on above: Order Comment: Speci men Type: BLOOD SPECIMEN Ordering Facility: [facility] Address: [address] [place] [address] Performed By: #### 5 7021-8 #### [facility] CLIA [id number] [address] [place] [address] [place] Monocytes/100 WBC (Bld) 7.9 % Normal [facility] Comment on above: Order Comment: Speci men Type: BLOOD SPECIMEN Ordering Facility: [facility] Address: [address] [place] [address] Performed By: #### 5 7021-8 #### [facility] CLIA [id number] [address] [place] [address] [place] Neutrophils (Bld) [#/Vol] 4.00 10*3/uL Normal 1.45-7.50 [facility] Comment on above: Order Comment: Speci men Type: BLOOD SPECIMEN Ordering Facility: [facility] Address: [address] [place] [address] Performed By: #### 5 7021-8 #### [facility] CLIA [id number] [address] [place] [address] [place] Neutrophils/100 WBC (Bld) 67.5 % Normal [facility] Comment on above: Order Comment: Speci men Type: BLOOD SPECIMEN Ordering Facility: [facility] Address: [address] [place] [address] Performed By: #### 5 7021-8 #### [facility] CLIA [id number] [address] [place] [address] [place] Nucleated RBC (Bld) [#/Vol] 10*3/uL Normal <0.01 [facility] Comment on above: Order Comment: Speci men Type: BLOOD SPECIMEN Ordering Facility: [facility] Address: [address] [place] [address] Performed By: #### 5 7021-8 #### [facility] CLIA [id number] [address] [place] [address] [place] Nucleated RBC/100 WBC (Bld) [Ratio] 0.0 /100 WBC Normal [facility] Comment on above: Order Comment: Speci men Type: BLOOD SPECIMEN Ordering Facility: [facility] Address: [address] [place] [address] Performed By: #### 5 7021-8 #### [facility] CLIA [id number] [address] [place] [address] [place] Platelet mean volume (Bld) [Entitic vol] 10.4 fL Normal 9.0-12.7 [facility] Comment on above: Order Comment: Speci men Type: BLOOD SPECIMEN Ordering Facility: [facility] Address: [address] [place] [address] Performed By: #### 5 7021-8 #### [facility] CLIA [id number] [address] [place] [address] [place] Platelets (Bld) [#/Vol] 267 10*3/uL Normal 150-400 [facility] Comment on above: Order Comment: Speci men Type: BLOOD SPECIMEN Ordering Facility: [facility] Address: [address] [place] [address] Performed By: #### 5 7021-8 #### [facility] CLIA [id number] [address] [place] [address] [place] RBC (Bld) [#/Vol] 4.70 10*6/uL Normal 3.90-5.[address] [facility] Comment on above: Order Comment: Speci men Type: BLOOD SPECIMEN Ordering Facility: [facility] Address: [address] [place] [address] Performed By: #### 5 7021-8 #### [facility] CLIA [id number] [address] [place] [address] [place] WBC (Bld) [#/Vol] 5.93 10*3/uL Normal 3.70-11.[address] [facility] Comment on above: Order Comment: Speci men Type: BLOOD SPECIMEN Ordering Facility: [facility] Address: [address] [place] [address] Performed By: #### 5 7021-8 #### [facility] CLIA [id number] [address] [place] [address] OF [place] CNOVon 09-08-2024 CNOV Office Visit (FAMPWS ) STEPHANY DINH ([id number]) 1965 F Date Time Provider Department 09/08/24 10:40 AM WILLIAM DRAKE During your visit today, we recorded the following information about you: Pulse Blood pressure Weight 82/minute 150/75 84 kg William Drake APRN.[employer] 09/08/2024 11:53 AM Signed Chief Complaint Patient presents with: Blood Pressure HPI Stephany Dinh is a 58 year old female who presents here today for Above Complaints. Patient presents for elevated BP at home. Patient reports home BP runs 140-160 at home. Home BP cuff tested in office and reads about 10 points higher than in office readings. Also reports intermittent nausea, dizziness and headache. Past medical history, appointments, medications, allergies reviewed. Previous Medical History PAST MEDICAL HISTORY Diagnosis Date Hypercholesteremia 03/2014 Plantar fasciitis Solitary cyst of breast left >right breast, benign Previous Surgical History PAST SURGICAL HISTORY Procedure Laterality Date ADENOIDECTOMY PRIMARY Adenoidectomy COLONOSCOPY FLX DX W/COLLJ SPEC WHEN PFRMD 3-2-15 TONSILLECTOMY PRIMARY/SECONDARY Tonsillectomy Family History FAMILY HISTORY Problem Relation Age of Onset Hearing Loss Mother Hypertension Mother Breast Cancer Mother DCIS Colon Cancer Maternal Grandmother great Cancer Maternal Grandmother bone Cancer Maternal Aunt lung Cancer Maternal Uncle esophageal Cancer Other cousin Psychiatry Sister Breast Cancer Maternal Aunt Patient Allergies ALLERGIES No Known Allergies Current Medications Current Outpatient Medications on File Prior to Visit Medication Sig meloxicam (MOBIC) 15 mg tablet Take 1 tablet by mouth once daily. No current facility-administered medications on file prior to visit. Social History Social History Tobacco Use Smoking status: Never Smokeless tobacco: Never Vaping Use Vaping status: Never Used Substance Use Topics Alcohol use: Yes Alcohol/week: 9.1 standard drinks of alcohol Types: 7 Mixed Drinks per week Comment: One glass each Evening Drug use: No Review of Symptoms REVIEW OF SYSTEMS SEE HPI EXAM: BP 150/75 Pulse 82 Wt 84 kg (185 lb 3 oz) LMP 11/21/2017 (Approximate) BMI 28.73 kg/m? General Appearance: Well appearing, alert, in no acute distress, well-hydrated, well nourished. Lungs: Lungs clear to auscultation. No wheezing, rhonchi, rales. Heart: RRR without murmur, gallop, or rubs. No ectopy. Health Maintenance List Depression Screening Never done Hepatitis C Screening Never done HIV Screening Never done Hepatitis B Vaccine(1 of 3 - 19+ 3-dose series) Never done Shingrix Vaccine(1 of 2) Never done Pneumococcal Vaccine: 50+(1 of 1 - PCV) Never done Colorectal Cancer Screening due on 05/12/2019 Diabetes Screening due on 04/21/2022 Covid-19 Vaccine( season) due on 11/11/2023 Lipid Screening due on 04/21/2024 Mammogram Screening due on 06/13/2025 Cervical Cancer Screening due on 01/24/2026 DTaP,Tdap,Td Vaccine(2 - Td or Tdap) due on 05/19/2034 Influenza Vaccine Completed Data reviewed Last 5 Encounter BP Readings: Date: BP: 09/08/2024 150/75 02/28/2022 120/80 01/11/2022 136/84 12/14/2020 120/78 04/23/2019 132/82 ASSESSMENT/PLAN: 1. Hypertension, essential - ICD9: 401.9, ICD10: I10 (primary diagnosis) - New diagnosis - Recommend home blood pressure monitoring, to bring results to next visit - Encouraged sodium restriction, DASH or Mediterranean diet - Recommend regular aerobic exercise - Decrease alcohol consumption, currently drinking equivalent of 8 shots of liquor daily - COMPREHENSIVE METABOLIC PANEL - COMPLETE BLOOD COUNT AND DIFFERENTIAL 2. Screening for diabetes mellitus - ICD9: V77.1, ICD10: Z13.1 - HEMOGLOBIN A1C 3. Encounter for lipid screening for cardiovascular disease - ICD9: V77.91, V81.2, ICD10: Z13.220, Z13.6 - LIPID PANEL, NONFASTING 4. Overweight (BMI 25.0-29.9) - ICD9: 278.02, ICD10: E66.3 -Stable William Drake APRN.[employer]ER Allergies As of Date: 09/08/2024 (No Known Allergies) Date Reviewed: 09/08/2024 Reviewed by: rAline Carl MA - Fully Assessed Reason for Visit: Blood Pressure [15] Primary Visit Diagnosis:Hypertension , essential [I10] Other Visit Diagnoses:Screening for diabetes mellitus [Z13.1] Encounter for lipid screening for cardiovascular disease [Z13.220, Z13.6] Overweight (BMI 25.0-29.9) [E66.3] Order(s):LIPID PANEL, NONFASTING [SQLIPNF] Order #: [id number] FUTURE COMPREHENSIVE METABOLIC PANEL [SQCMP] Order #: [id number] FUTURE COMPLETE BLOOD COUNT AND DIFFERENTIAL [SQCBCDIF] Order #: [id number] FUTURE HEMOGLOBIN A1C [NWGQM6Z] Order #: [id number] FUTURE Prescriptions as of 09/08/2024 - meloxicam (MOBIC) 15 mg tablet Take 1 tablet by mouth once daily. Meds Comments as of (more content not included)... Normal [facility] Comprehensive metabolic 2000 panelon 09-08-2024 Albumin [Mass/Vol] 4.6 g/dL Normal 3.9-4.9 [facility] Comment on above: Order Comment: Speci men Type: BLOOD SPECIMEN Ordering Facility: [facility] Address: [address] [place] [address] Performed By: #### 5 7021-8 #### [facility] CLIA [id number] [address] [place] [address] [place] ALP [Catalytic activity/Vol] 48 U/L Normal 34-123 [facility] Comment on above: Order Comment: Speci men Type: BLOOD SPECIMEN Ordering Facility: [facility] Address: [address] [place] [address] Performed By: #### 5 7021-8 #### [facility] CLIA [id number] [address] [place] [address] [place] ALT [Catalytic activity/Vol] 21 U/L Normal 7-38 [facility] Comment on above: Order Comment: Speci men Type: BLOOD SPECIMEN Ordering Facility: [facility] Address: [address] [place] [address] Performed By: #### 5 7021-8 #### [facility] CLIA [id number] [address] [place] [address] [place] Anion gap [Moles/Vol] 14 mmol/L Normal 8-15 [facility] Comment on above: Order Comment: Speci men Type: BLOOD SPECIMEN Ordering Facility: [facility] Address: [address] [place] [address] Performed By: #### 5 7021-8 #### [facility] CLIA [id number] [address] [place] [address] [place] AST [Catalytic activity/Vol] 29 U/L Normal 13-35 [facility] Comment on above: Order Comment: Speci men Type: BLOOD SPECIMEN Ordering Facility: [facility] Address: [address] [place] [address] Performed By: #### 5 7021-8 #### [facility] CLIA [id number] [address] [place] [address] [place] Bilirubin [Mass/Vol] 1.0 mg/dL Normal 0.2-1.3 [facility] Comment on above: Order Comment: Speci men Type: BLOOD SPECIMEN Ordering Facility: [facility] Address: [address] [place] [address] Performed By: #### 5 7021-8 #### [facility] CLIA [id number] [address] [place] [address] [place] Calcium [Mass/Vol] 10.2 mg/dL Normal 8.5-10.2 [facility] Comment on above: Order Comment: Speci men Type: BLOOD SPECIMEN Ordering Facility: [facility] Address: [address] [place] [address] Performed By: #### 5 7021-8 #### [facility] CLIA [id number] [address] [place] [address] [place] Chloride [Moles/Vol] 99 mmol/L Normal 98-107 [facility] Comment on above: Order Comment: Speci men Type: BLOOD SPECIMEN Ordering Facility: [facility] Address: [address] [place] [address] Performed By: #### 5 7021-8 #### [facility] CLIA [id number] [address] [place] [address] [place] CO2 [Moles/Vol] 24 mmol/L Normal 22-30 [facility] Comment on above: Order Comment: Speci men Type: BLOOD SPECIMEN Ordering Facility: [facility] Address: [address] [place] [address] Performed By: #### 5 7021-8 #### [facility] CLIA [id number] [address] [place] [address] [place] Creatinine [Mass/Vol] 0.73 mg/dL Normal 0.58-0.96 [facility] Comment on above: Order Comment: Speci men Type: BLOOD SPECIMEN Ordering Facility: [facility] Address: [address] [place] [address] Performed By: #### 5 7021-8 #### [facility] CLIA [id number] [address] [place] [address] [place] Creatinine and Glomerular filtration rate.predicted panel (S/P/Bld) 95 mL/min/1.73m??? Normal >=60 [facility] Comment on above: Order Comment: Speci men Type: BLOOD SPECIMEN Ordering Facility: [facility] Address: [address] [place] [address] Result Comment: Kendra mated Glomerular Filtration Rate (eGFR) is calculated using the 2020 CKD-EPI creatinine equation. This equation utilizes serum creatinine, sex, and age as parameters. The creatinine assay has traceable calibration to isotope dilution-mass spectrometry. Refer to KDIGO guidelines for clinical interpretation. In patients with unstable renal function, e.g. those with acute kidney injury, the eGFR may not accurately reflect actual GFR. Performed By: #### 5 7021-8 #### [facility] CLIA [id number] [address] [place], [place] [id number] [place] Glucose [Mass/Vol] 86 mg/dL Normal 74-99 [facility] Comment on above: Order Comment: Speci men Type: BLOOD SPECIMEN Ordering Facility: [facility] Address: [address] [place], [place] [id number] Result Comment: The La[place] Diabetes Association (ADA) provides guidance for cutoff values for fasting glucose and random glucose. The ADA defines fasting as no caloric intake for at least 8 hours. Fasting plasma glucose results between 100 to 125 mg/dL indicate increased risk for diabetes (prediabetes). Fasting plasma glucose results greater than or equal to 126 mg/dL meet the criteria for diagnosis of diabetes. In the absence of unequivocal hyperglycemia, results should be confirmed by repeat testing. In a patient with classic symptoms of hyperglycemia or hyperglycemic crisis, random plasma glucose results greater than or equal to 200 mg/dL meet the criteria for diagnosis of diabetes. Reference: Standards of Medical Care in Diabetes 2016, La[place] Diabetes Association. Diabetes Care. 2016.39(Suppl 1). Performed By: #### 5 7021-8 #### [facility] CLIA [id number] [address] [place] [address] [place] Potassium [Moles/Vol] 4.3 mmol/L Normal 3.7-5.1 [facility] Comment on above: Order Comment: Brandoni men Type: BLOOD SPECIMEN Ordering Facility: [facility] Address: [address] [place] [address] Performed By: #### 5 7021-8 #### [facility] CLIA [id number] [address] [place] [address] [place] Protein [Mass/Vol] 7.5 g/dL Normal 6.3-8.0 [facility] Comment on above: Order Comment: Brandoni men Type: BLOOD SPECIMEN Ordering Facility: [facility] Address: [address] [place] [address] Performed By: #### 5 7021-8 #### [facility] CLIA [id number] [address] [place] [address] [place] Sodium [Moles/Vol] 137 mmol/L Normal 136-144 [facility] Comment on above: Order Comment: Speci men Type: BLOOD SPECIMEN Ordering Facility: [facility] Address: [address] [place], [place] [id number] Performed By: #### 5 7021-8 #### [facility] CLIA [id number] [address] [place] [address] [place] Urea nitrogen [Mass/Vol] 10 mg/dL Normal 7-21 [facility] Comment on above: Order Comment: Adriana fitzgerald Type: BLOOD SPECIMEN Ordering Facility: [facility] Address: [address] [place] [address] Performed By: #### 5 7021-8 #### [facility] CLIA [id number] [address] [place] [address] [place] HbA1c (Bld)on 09-08-2024 Average glucose Estimated from glycated hemoglobin (Bld) [Mass/Vol] 91 mg/dL [facility] Comment on above: eAG: (Estimated aver age glucose) is a calculated value from HgbA1c and is civil rights representative of the average blood glucose level in the last 2-3 month period. HbA1c (Bld) [Mass fraction] 4.8 % 4.3 - 5.6 % [facility] Comment on above: Lao Diabetes As sociation guidelines indicate that patients with HgbA1c in the range 5.7-6.4% are at increased risk for development of diabetes, and intervention by lifestyle modification may be beneficial. HgbA1c greater or equal to 6.5% is considered diagnostic of diabetes. [facility] Average glucose Estimated from glycated hemoglobin (Bld) [Mass/Vol] 91 mg/dL Normal [facility] Comment on above: Order Comment: Adriana fitzgerald Type: BLOOD SPECIMEN Ordering Facility: [facility] Address: [address] [place] [address] Result Comment: eAG: (Estimated average glucose) is a calculated value from HgbA1c and is civil rights representative of the average blood glucose level in the last 2-3 month period. Performed By: #### 5 7021-8 #### [facility] CLIA [id number] [address] [place], [place] [address] [place] [id number] [place] HbA1c (Bld) [Mass fraction] 4.8 % Normal 4.3-5.6 [facility] Comment on above: Order Comment: Adriana fitzgerald Type: BLOOD SPECIMEN Ordering Facility: [facility] Address: [address] [place] [address] Result Comment: Amer ican Diabetes Association guidelines indicate that patients with HgbA1c in the range 5.7-6.4% are at increased risk for development of diabetes, and intervention by lifestyle modification may be beneficial. HgbA1c greater or equal to 6.5% is considered diagnostic of diabetes. Performed By: #### 5 7021-8 #### [facility] CLIA [id number] [address] [place] [address] [place] LIPID PANEL, NONFASTINGon Cholesterol [Mass/Vol] 288 mg/dL High <200 [facility] Comment on above: Order Comment: Adriana fitzgerald Type: BLOOD SPECIMEN Ordering Facility: [facility] Address: [address] [place] [address] Result Comment: <200 mg/dL, Desirable 200-239 mg/dL, Borderline high >239 mg/dL, High Performed By: #### 2 4331-1, 3051-0, 3024-7, 3016-3 #### [facility] CLIA [id number] [address] [place] [address] [place] HDL CHOLESTEROL, NF 108 mg/dL Normal >39 [facility] Comment on above: Order Comment: Adriana fitzgerald Type: BLOOD SPECIMEN Ordering Facility: [facility] Address: [address] [place] [address] Result Comment: 40-5 9 mg/dL, Acceptable >59 mg/dL, High: Negative risk factor for coronary heart disease <40 mg/dL, Low: Positive risk factor for coronary heart disease Performed By: #### 2 4331-1, 3051-0, 3024-7, 3016-3 #### [facility] CLIA [id number] [address] [place] [address] [place] LDL CHOLESTEROL CALCULATED, NF 147 mg/dL High <100 [facility] Comment on above: Order Comment: Adriana fitzgerald Type: BLOOD SPECIMEN Ordering Facility: [facility] Address: [address] [place] [address] Result Comment: <100 mg/dL, Optimal 100-129 mg/dL, Near optimal/above optimal 130-159 mg/dL, Borderline high 160-189 mg/dL, High >189 mg/dL, Very high Secondary prevention optimal LDL Cholesterol levels are recommended to be <70 mg/dL LDL cholesterol is calculated using the Kumar-NIH equation. Performed By: #### 2 4331-1, 3051-0, 3024-7, 3016-3 #### [facility] CLIA [id number] [address] [place] [address] [facility] LDL/HDL RATIO, NF 1.36 mg/dL Normal <2.54 [facility] Comment on above: Order Comment: Adriana fitzgerald Type: BLOOD SPECIMEN Ordering Facility: [facility] Address: [address] [place] [address] Result Comment: Refe rence: 1. National Cholesterol Education Program ATP III Guideline At-A-Glance Quick Desk Reference: National Heart, Lung, and Blood Carter. National Institutes of Health. 2001: NIH Publication No. 01-3305. 2. An International Atherosclerosis Society position paper: global recommendations for the management of dyslipidemia: executive summary, Atherosclerosis. 2014: 232(2):410-413. Performed By: #### 2 4331-1, 3051-0, 3024-7, 6-3 #### [facility] CLIA [id number] [address] [place], [place] [address] [address] OF [place] NON HDL CHOL, NF 180 mg/dL High <130 [facility] Comment on above: Order Comment: Adriana fitzgerald Type: BLOOD SPECIMEN Ordering Facility: [facility] Address: [address] [place] [address] Result Comment: <130 mg/dL, Optimal 130-159 mg/dL, Near optimal/above optimal 160-189 mg/dL, Borderline high 190-219 mg/dL, High >219 mg/dL, Very high Secondary prevention optimal non HDL Cholesterol levels are recommended to be <100 mg/dL Performed By: #### 2 4331-1, 3051-0, 3024-7, 3016-3 #### [facility] CLIA [id number] [address] [place] [address] [place] T CHOL/HDL RATIO NF 2.67 mg/dL Normal <5.10 [facility] Comment on above: Order Comment: Speci men Type: BLOOD SPECIMEN Ordering Facility: [facility] Address: [address] [place], [place] [address] Performed By: #### 2 4331-1, 3051-0, 3023-7, 6-3 #### [facility] CLIA [id number] [address] [place], [place] [address] [place] TRIGLYCERIDES, NF 193 mg/dL High <150 [facility] Comment on above: Order Comment: Speci men Type: BLOOD SPECIMEN Ordering Facility: [facility] Address: [address] [place], [place] [id number] Result Comment: <150 mg/dL, Normal 150-199 mg/dL, Borderline high 200-499 mg/dL, High >499 mg/dL, Very high Performed By: #### 2 4331-1, 3051-0, 3023-7, 6-3 #### [facility] CLIA [id number] [address] [place] [address] [place] VLDL CHOLESTEROL, NF 36 mg/dL High <30 [facility] Comment on above: Order Comment: Speci men Type: BLOOD SPECIMEN Ordering Facility: [facility] Address: [address] [place], [place] [id number] Performed By: #### 2 4331-1, 3051-0, 302-7, 6-3 #### [facility] CLIA [id number] [address] [place] [address] [place] Rn Social Work Office Visit Reporton 07-02-2024 Rn Social Work Office Visit Report [facility] [address], [address] [place] [address] OFFICE VISIT Date of Service: 07/02/24 MR#: [id number] Acct: [id number] Name: STEPHANY DINH Rep #: [id number] : 1965 Provider: DANIEL Purcell Age/Sex: 58/F Location: [facility] Status: Signed Intake Vital Signs 03/14/22 14:47 07/02/24 12:51 Height 5 ft 8 in 5 ft 8 in Weight: 188 lb BMI 28.5 BP 146/81 H 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 Visit 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) Bin Packer Required: No Is patient in pain?: No Allergies No Known Allergies Allergy (Verified 07/02/24 15:28) Medications ???Medication ???Instructions ???Recorded ???Confirmed ???Type meloxicam 15 mg tablet 15 mg PO DAILY 03/14/22 07/02/24 H istory [facility] Medical History Cyst of left breast Surgical History History of tonsillectomy Family History Mother Breast cancer Hypertension Social History Smoking Status: Never smoker alcohol intake: current alcohol intake frequency: a few times a month details: cocktail nightly substance use type: does not use caffeine: Yes what type of physical activity do you participate in: none seatbelt use: always do you feel safe at home: Yes additional social history: Yqhnuqf-Hwrj-Otknrwjp Account of [facility] 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 Date Name GA/Weeks Outcome Route Bth Weight Infant Gen Labor Lgth Anesthesia Del Locatn Provider FOB Unknown HPI Encounter for routine gynecological examination Details: STEPHANY DINH is a 58 year old who presents for annual exam. She reports no issues or concerns; she does have occasional hot flashes; able to tolerate these. Has not had a menses in 2 years. No post menopausal bleeding. Last PAP: 2020; normal. hpv neg. History of abnormal PAP: no. Last mammogram: 2024; normal. History of abnormal mammogram: cyst in left breast 2021. Colon cancer screening: due; will obtain through PCP. Other preventative health care screenings: Rajan Malone; PCP. Female Reproductive History Questions: metorrhagia: No, sexually active: Yes, dyspareunia: No and PCB: No Menopausal Symptoms: Yes hot flashes, No night sweats, No weight change, No mood changes, No difficulty concentrating, No sleep problems and No change in libido ROS Const Constitutional: Denies chills, fatigue, fever(s), headache(s), night sweats or weight loss Eyes Eyes: Denies change in vision Resp Resp: Denies cough GI GI: Denies abdominal pain : Reports hot flashes; Denies difficulty voiding, dysuria, hematuria, nipple discharge, pelvic pain, prolapse symptoms, urinary incontinence, vaginal discharge, vaginal dryness, vaginal odor or vaginal pruritus Skin Skin/Breast: Denies breast mass, breast pain, breast skin changes or nipple discharge Psych Psych: Denies anxiety, change in libido, depression or difficulty concentrating Endo Endo: Denies cold intolerance, excessive sweating or heat intolerance Exam Const General: cooperative, healthy appearing, no acute distress and well developed Orientation: alert, oriented to person and oriented to place HENW[place] Head: normal to inspection Neck Neck: normal visual inspection Thyroid: thyroid normal Lymphatic: no lymphadenopathy noted Chest Breast inspection: normal inspection of the breasts and normal inspection of the axillae Breast palpation: normal palpation of the breasts, normal palpation of the axillae and no axillary lymphadenopathy Resp Effort Inspection: normal respiratory effort GI Palpation: soft, no masses and nontender Rectal Exam: deferred External Female Exam: normal external appearance and normal appearance of the urethra Urethra: normal appearance of the urethra and normal palpation Speculum Exam - Vagina: normal appearance of the vagina and normal vaginal discharge Speculum Exam - Cervix: normal appearance of the cervix Bimanual Exam- Vagina Uterus: normal bimanual exam, uterine size normal, uterine shape normal and non-tender Bimanual Exam- Adnexa, other: normal adnexae, no masses, normal and non-tender Pelvic Support: normal Neuro General: patient alert and patient oriented x3 Psych Affect: normal affect Coding Level of Care Code Established Pt Off vis,est,prev 40-64yrs Patient Type Established Diagnoses Encounter for routine gynecological examination Z01.419 Elevated BP without clayton (more content not included)... Normal [facility] Breast imaging reportOrdered By: Lyric Rosario on 06-13-2024 Study report [facility] Imaging Services [address] [place] [address] SCRN MAMM (CAD)W/FRANKY BILAT MR#: [id number] Acct: [id number] Name: STEPHANY DINH Rep #: [id number] : 1965 F 58 From: Avani Rosario MD PCP: Dr. Rajan Malone DO Status: RE G CLI Study:SCRN MAMM (CAD)W/FRANKY BILAT Date of Exa m: 06/13/24 Exam# [id number] Ordering Dr: Callie Alvarado WELDING TEACHER-C EXAM: SCRN MAMM (CAD)W/FRANKY BILAT 06/13/2024 CLINICAL HISTORY: F, Age 58 y/o , SCREEN FOR BREAST CANCER TECHNIQUE: Bilateral screening digital breast tomosynthesis with 2D and 3D images. Computeraided detection. COMPARISON: Prior exam(s) dated 01/19/2022, 01/23/2022. FINDINGS: TISSUE DENSITY: The breast tissue is heterogenously dense, which may obscure small masses. The mammogram demonstrates that the patient has dense breasts. Supplemental screening with whole breast ultrasound or MRI may be considered for further evaluation. Bilateral Breast Mammographic Findings: No significant masses, calcifications or other abnormalities are identified. BI/SCRN MAMM (CAD)W/FRANKY BILAT IMPRESSION: Right Breast: BIRADS 1 NEGATIVE. Left Breast: BIRADS 1 NEGATIVE. OVERALL FINAL ASSESSMENT: BIRADS 1 NEGATIVE. RECOMMENDATION: Routine annual follow-up in 1 Year A letter with findings and recommendations will be mailed to the patient. Reading Location: [facility] CC: WELDING TEACHEREarl Alvarado; Dr. Rajan Malone, ~ Powdered Sugar Pulverizer Operator: Signed [facility] SCRN MAMM (CAD)W/FRANKY BILATo n 06-13-2024 SCRN MAMM (CAD)W/FRANKY BILAT [facility] Imaging Services [address] [place] [address] SCRN MAMM (CAD)W/FRANKY BILAT MR#: [id number] Acct: [id number] Name: STEPHANY DINH Rep #: [id number] : 1965 F 58 From: Lyric Rosario MD PCP: Dr. Rajan Malone DO Status: REG CLI Study: SCRN MAMM (CAD)W/FRANKY BILAT Date of Exam: 07/04 Exam# [id number] Ordering Dr: Callie Alvarado EXAM: SCRN MAMM (CAD)W/FRANKY BILAT 06/13/2024 CLINICAL HISTORY: F, Age 58 y/o , SCREEN FOR BREAST CANCER TECHNIQUE: Bilateral screening digital breast tomosynthesis with 2D and 3D images. Computer aided detection. COMPARISON: Prior exam(s) dated 01/19/2022, 01/23/2022. FINDINGS: TISSUE DENSITY: The breast tissue is heterogenously dense, which may obscure small masses. The mammogram demonstrates that the patient has dense breasts. Supplemental screening with whole breast ultrasound or MRI may be considered for further evaluation. Bilateral Breast Mammographic Findings: No significant masses, calcifications or other abnormalities are identified. BI/SCRN MAMM (CAD)W/FRANKY BILAT IMPRESSION: Right Breast: BIRADS 1 NEGATIVE. Left Breast: BIRADS 1 NEGATIVE. OVERALL FINAL ASSESSMENT: BIRADS 1 NEGATIVE. RECOMMENDATION: Routine annual follow-up in 1 Year A letter with findings and recommendations will be mailed to the patient. Reading Location: [facility] CC: DANIEL Alvarado; Dr. Rajan Malone DO Powdered Sugar Pulverizer Operator: Signed Normal [facility] Absolute lymphocyte counton 01-23-2022 Lymphocytes Auto (Unsp spec) [#/Vol] 1.16 10*3/uL 0.83-4.51 [facility] Work Phone: Basophil percentageon 2021 Basophils/100 WBC (Bld) 0.9 % 0-1 [facility] Work Phone: Bilirubin [Mass/Vol] 1.20 mg/dL 0.20-1.00 [facility] Work Phone: Comment on above: For patients on eltr ombopag therapy, use of Dimension [place] TBIL is not recommended. Chloride [Moles/Vol] 105 mmol/L 98-107 [facility] Work Phone: Cholesterol [Mass/Vol] 253 mg/dL <200 [facility] Work Phone: Comment on above: <200 mg/dL Desirable 200-240 mg/dL Borderline >240 mg/dL High Risk Eosinophils/100 WBC (Bld) 3.5 % 0-5 [facility] Work Phone: Glucose [Mass/Vol] 83 mg/dL 74-106 [facility] Work Phone: Neutrophils (Bld) [#/Vol] 2.6 10*3/uL 2.0-7.7 [facility] Work Phone: Neutrophils/100 WBC (Bld) 60.6 % 47-70 [facility] Work Phone: Potassium [Moles/Vol] 3.9 mmol/L 3.5-5.1 [facility] Work Phone: Protein [Mass/Vol] 7.1 g/dL 6.4-8.2 [facility] Work Phone: Sodium [Moles/Vol] 138 mmol/L 136-145 [facility] Work Phone: Triglyceride [Mass/Vol] 89 mg/dL <199 [facility] Work Phone: Comment on above: The drugs N-Acetylcy steine and Metamizole may falsely depress this assay.Serum Triglycerides Reference Interval Normal <150 mg/dL Borderline high 150 - 199 mg/dL High 200 - 499 mg/dL Very High > or = 500 mg/dL WBC (Bld) [#/Vol] 4.3 10*3/uL 4.4-11.0 [facility] Work Phone: Blood erythrocytes count (nu mber/volume)on 01-23-2022 RBC (Bld) [#/Vol] 4.39 10*6/uL 4.2-5.4 [facility] Work Phone: Blood hemoglobin measurement (mass/volume)on 01-23-2022 Hemoglobin (Bld) [Mass/Vol] 13.8 g/dL 12.0-15.0 [facility] [facility] Work Phone: Blood lymphocytes/100 leukoc yteson 01-23-2022 Lymphocytes/100 WBC (Bld) 26.9 % 19-41 [facility] Work Phone: Blood monocytes/100 leukocyt eson 01-23-2022 Monocytes/100 WBC (Bld) 7.9 % 0-10 [facility] Work Phone: Blood platelet mean volumeon 01-23-2022 Platelet mean volume (Bld) [Entitic vol] 10.1 fL 6.2-12.0 [facility] Work Phone: Determination of erythrocyte mean corpuscular volume (MCV)on 01-23-2022 MCV (RBC) [Entitic vol] 91.8 fL 81-99 [facility] Work Phone: Hematocrit Auto (Bld) [Volum e fraction]on 01-23-2022 Hematocrit (Bld) [Volume fraction] 40.3 % 37-47 [facility] Work Phone: Laboratory - Chemistry and C hemistry - challengeon 01-23-2022 ALP [Catalytic activity/Vol] 46 U/L 45-117 [facility] Work Phone: ALT [Catalytic activity/Vol] 24 U/L 13-56 [facility] Work Phone: CO2 [Moles/Vol] 26.0 mmol/L 21.0-32.0 [facility] Work Phone: Cobalamin (Vitamin B12) [Mass/Vol] 251 pg/mL 211-911 [facility] Work Phone: Free T4 [Mass/Vol] 0.90 ng/dL 0.76-1.46 [facility] Work Phone: Globulin (S) [Mass/Vol] 3.3 g/dL 2.2-4.2 [facility] Work Phone: Urea nitrogen/Creatini ne [Mass ratio] 14.7 mg/mg 10-20 [facility] Work Phone: Laboratory - Hematology and Cell countson 01-23-2022 Erythrocyte distribution width (RBC) [Entitic vol] 40.0 fL 35.1-43.9 [facility] Work Phone: Erythrocyte distribution width (RBC) [Ratio] 11.8 % 11.6-14.6 [facility] Work Phone: Immature granulocytes/100 WBC (Bld) 0.200 % 0.0-0.9 [facility] Work Phone: Comment on above: IG% - Immature Granu locytes (promyelocytes, myelocytes and metamyelocytes) > 1% indicates that a LEFT SHIFT is Present. MCH (RBC) [Entitic mass] 31.4 pg 27.0-32.0 [facility] Work Phone: Nucleated RBC/100 WBC (Bld) [Ratio] 0 % 0-5 [facility] Work Phone: MCHC Auto (RBC) [Mass/Vol]on 01-23-2022 MCHC (RBC) [Mass/Vol] 34.2 g/dL 32-36 [facility] Work Phone: No Panel Informationon 01-23 Estimated GFR (MDRD) Amer 93 mL/min >60 [facility] Work Phone: Comment on above: GFR Calc Estimated GFR (MDRD) Non-Af Amer 77 mL/min >60 [facility] Work Phone: Comment on above: Non- GFR Calc Thyroid Stimulating Hormone (TSH) 3.68 uIU/mL 0.358-3.74 [facility] Work Phone: Vitamin D 25-Hydroxy 19.2 ng/mL [facility] Work Phone: Comment on above: Vitamin D 25(OH) Sta tus Range Deficiency <20 ng/mL (50nmol/L) Insufficiency 20 - 30 ng/mL (50 - 75 nmol/L) Sufficiency 30 - 100 ng/mL (75 - 250 nmol/L) Toxicity >100 ng/mL (>250 nmol/L) Platelets bldon 01-23-2022 Platelets (Bld) [#/Vol] 243 10*3/uL 150-450 [facility] Work Phone: Serum or plasma albumin goyo urement (mass/volume)on 01-23-2022 Albumin [Mass/Vol] 3.8 g/dL 3.2-5.0 [facility] Work Phone: Serum or plasma albumin/glob ulin mass ratioon 01-23-2022 Albumin/Globulin [Mass ratio] 1.2 {ratio} 0.9-2.4 [facility] Work Phone: Serum or plasma calcium goyo urement (mass/volume)on 01-23-2022 Calcium [Mass/Vol] 9.5 mg/dL 8.5-10.1 [facility] Work Phone: Serum or plasma cholesterol in HDL measurement (mass/volume)on 01-23-2022 Cholesterol in HDL [Mass/Vol] 103 mg/dL >40 [facility] Work Phone: Comment on above: The drugs N-Acetylcy steine and Metamizole may falsely depress this assay. Reference Range HDL <40 mg/dL Low HDL Cholesterol HDL >or= 60 mg/dL High HDL Cholesterol Serum or plasma cholesterol in VLDL measurement (mass/volume)on 01-23-2022 Cholesterol in VLDL [Mass/Vol] 18 mg/dL 5-40 [facility] Work Phone: Serum or plasma creatinine m easurement (mass/volume)on 01-23-2022 Creatinine [Mass/Vol] 0.82 mg/dL 0.55-1.02 [facility] Work Phone: Comment on above: The validity of the calculated GFR & GFRAA in patients over 70 years has not been determined. Clinical correlation is essential. Serum or plasma low density lipoprotein (LDL) cholesterol measurement (mass/volume)on 01-23-2022 Cholesterol in LDL [Mass/Vol] 132 mg/dL 0-130 [facility] Work Phone: Serum or plasma urea nitroge n measurement (mass/volume)on 01-23-2022 Urea nitrogen [Mass/Vol] 12 mg/dL 7-18 [facility] Work Phone: Thin prep Papanicolaou smear with manual screeningon 01-23-2022 Thin prep Papanicolaou smear with manual screening 18 U/L 15-37 [facility] Work Phone: Thin prep Papanicolaou smear with manual screening 7 5-15 [facility] Work Phone: Whole blood hemoglobin A1c/t otal hemoglobin ratio (mass fraction)on 01-23-2022 HbA1c (Bld) [Mass fraction] 4.8 % 3.8-5.6 [facility] Work Phone: Comment on above: Normal < 5.7 % Predi abetic 5.7 - 6.4 % Diabetic >or= 6.5 % Please note range changes. Office Visit: new annualon 1 Documentation of current medications (procedure) Done Invalid Interpretation Code [facility] [employer] Work Phone: Documentation of current medications (procedure) T Invalid Interpretation Code [facility] [employer] Work Phone: Fall risk assessment No Invalid Interpretation Code [facility] Tobacco smoking status NHIS Never Invalid Interpretation Code [facility] Tobacco smoking status NHIS Never smoker Invalid Interpretation Code [facility] Tobacco use CPHS Never smoker Invalid Interpretation Code [facility] [employer] Work Phone: Office Visit: new annualon 0 03-12-2015 MG Breast screening Normal Bilateral Invalid Interpretation Code [facility] General categories Cyto stain Interp (Cervical or vaginal smear or scraping) Normal Invalid Interpretation Code [facility] Lab Report: LILLIE DIR SEMI-QLo n 09-26-2010 LILLIE DIRECT 26 AU/mL Normal <100 [facility] Vital Signs Date Time Vital Sign Value Performing Clinician Facility 10-29-2024 [id number] Body height 173 cm Rajan Malone DO Work Phone: [facility] 10-29-2024 10:21-0400 Body mass index (BMI) [Ratio] 27.58 kg/m2 Rajan Malone DO Work Phone: [facility] 10-29-2024 10:21-0400 Body temperature 98.01 [degF] Rajan Malone DO Work Phone: [facility] 10-29-2024 [id number] Body weight 82.56 kg Rajan Malone DO Work Phone: [facility] 10-29-2024 10:21-0400 Diastolic blood pressure 86 mm[Hg] Rajan Malone DO Work Phone: [facility] 10-29-2024 10:21-0400 Heart rate 68 /min Rajan Malone DO Work Phone: [facility] 10-29-2024 10:21-0400 Respiratory rate 12 /min Rajan Malone DO Work Phone: [facility] 10-29-2024 10:21-0400 Systolic blood pressure 140 mm[Hg] Rajan Malone DO Work Phone: [facility] 09-08-2024 10:45-0400 Body mass index (BMI) [Ratio] 28.73 kg/m2 William Drake APRN.[employer] Work Phone: [facility] 09-08-2024 10:45-0400 Body weight 84 kg William Drake APRN.[employer] Work Phone: [facility] 09-08-2024 10:45-0400 Diastolic blood pressure 75 mm[Hg] William Drake APRN.[employer] Work Phone: [facility] 09-08-2024 10:45-0400 Heart rate 82 /min William Drake APRN.[employer] Work Phone: [facility] 09-08-2024 10:45-0400 Systolic blood pressure 150 mm[Hg] William Drake APRN.[employer] Work Phone: [facility] 01-30-2022 08:48-0500 Body weight 88.[address] Rajan Malone Work Phone: [facility] Work Phone: 01-30-2022 08:48-0500 Diastolic blood pressure 84 mm[Hg] Dr. Rajan Malone Work Phone: [facility] Work Phone: 01-30-2022 08:48-0500 Heart rate 83 /min Dr. Rajan Malone Work Phone: [facility] Work Phone: 01-30-2022 08:48-0500 Respiratory rate 17 /min Dr. Rajan Malone Work Phone: [facility] Work Phone: 01-30-2022 08:48-0500 SaO2% (BldA) [Mass fraction] 97 % Dr. Rajan Malone Work Phone: [facility] Work Phone: 01-30-2022 08:48-0500 Systolic blood pressure 138 mm[Hg] Dr. Rajan Malone Work Phone: [facility] Work Phone: 01-11-2022 18:39-0400 Diastolic blood pressure 84 mm[Hg] Rajan Malone DO Work Phone: [facility] 01-11-2022 18:39-0400 Systolic blood pressure 136 mm[Hg] Rajan Malone DO Work Phone: [facility] 01-11-2022 15:53-0400 Body temperature 97.9 [degF] Rajan Malone DO Work Phone: [facility] 01-11-2022 15:53-0400 Body weight 88.45 kg Rajan Malone DO Work Phone: [facility] 01-11-2022 15:53-0400 Heart rate 64 /min Rajan Malone DO Work Phone: [facility] 01-11-2022 15:53-0400 Respiratory rate 16 /min Rajan Malone DO Work Phone: [facility] 12-25-2016 13:56-0400 BMI (Body Mass Index) 26.01 kg/m2 Marjan Hunt [facility] 12-25-2016 13:56-0400 Body Temperature 97.6 [degF] Marjan Hunt [facility] Care 12-25-2016 13:56-0400 Body Temperature 97.59 [degF] Marjan Hunt [facility] 12-25-2016 13:56-0400 BP Diastolic 69 mm[Hg] Marjanmarlon Hunt [facility]'s Care 12-25-2016 13:56-0400 BP Systolic 132 mm[Hg] Marjanmarlon Hunt [facility] 12-25-2016 13:56-0400 Height 171.45 cm Marjanmarlon [facility] 12-25-2016 13:56-0400 Pulse (Heart Rate) 74 /min Marjanmarlon Hunt [facility] Care 12-25-2016 13:56-0400 Respiratory Rate 16 /min Marjanmarlon Hunt [facility] 12-25-2016 13:56-0400 Weight 76.48 kg Marjan [facility] Care Encounters Encounter Date Encounter Type Care Provider Facility Start: 11-28-2024 ambulatory Rajan Malone Facilit y:[facility] Start: 11-27-2024 ambulatory Rajan Malone Facilit y:[facility] Start: 11-12-2024 ambulatory Rajan Malone Facilit y:[facility] Start: 11-11-2024 ambulatory Praveena Robertson Norman Facilit y:[facility] Start: 10-31-2024 End: 10-31-2024 ambulatory Rajan L Malone DO Work Phone: [facility] [place] Comment on above: Metformin Start: 10-31-2024 End: 10-31-2024 Telephone encounter Rajan Malone DO Work Phone: [facility] [place] Start: 10-29-2024 End: 10-29-2024 Patient encounter procedure Rajan Malone DO Work Phone: [facility] [place] Comment on above: Well adult exam ([place] rose Dx); Screening for colon cancer; Elevated BP without diagnosis of hypertension; Chronic pain of right knee; 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); Heterogeneously dense tissue of both breasts on mammography; Dyslipidemia Start: 10-29-2024 End: 10-29-2024 Patient encounter status Rajan Malone DO Work Phone: [facility] Start: 10-29-2024 End: 10-29-2024 ambulatory Rajan Malone DO Work Phone: [facility] [place] Comment on above: Tests Start: 10-18-2024 End: 10-18-2024 ambulatory PRAVEENA NORMAN Facility:[facility] Start: 10-16-2024 End: 10-16-2024 ambulatory SELF Facility:[facility] Start: 09-22-2024 End: 09-24-2024 Follow-up encounter William Drake APRN.[employer] Work Phone: [facility] [place] Comment on above: Results Start: 09-08-2024 End: 09-08-2024 ambulatory Rajan Malone DO Work Phone: [facility] [place] Comment on above: Hypertension Start: 09-08-2024 End: 09-08-2024 Patient encounter procedure William Drake APRN.[employer] Work Phone: [facility] [place] Comment on above: Hypertension, essent ial (Primary Dx); Screening for diabetes mellitus; Encounter for lipid screening for cardiovascular disease; Overweight (BMI 25.0-29.9) Start: 07-02-2024 End: 07-02-2024 ambulatory Rajan Malone Facility:[facility] Start: 06-13-2024 End: 06-13-[address] Rajan Malone DO Work Phone: [facility] Work Phone: Start: 06-13-2024 End: 06-13-2024 Patient encounter procedure Callie SANCHEZ -Outpatient Breast Imaging Work Phone: Start: 06-13-2024 End: 06-13-2024 ambulatory Rajan Malone Facility:[facility] Start: 11-07-2023 End: 11-12-2023 ambulatory Rajan Randon DO Work Phone: [facility] Start: 11-15-2022 ambulatory Rajan Hale son DO Work Phone: Internal Medicine [facility] Start: 02-17-2022 End: 02-17-2022 Patient encounter procedure Claudia Walton MD Work Phone: [facility] Comment on above: Knee pain with avasc ular 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 (HCC); Medial knee pain, right Start: 02-16-2022 End: 02-16-[address] Rajan Malone Work Phone: [facility] Work Phone: Start: 02-16-2022 End: 02-16-[address] [facility] Start: 02-15-2022 Telephone encounter Rajan varner DO Work Phone: [facility] Comment on above: Orders Start: 02-14-2022 ambulatory Rajan cagle DO Work Phone: [facility] Comment on above: ortho appt with Dr Deo la Start: 01-30-2022 End: 01-30-[address] Rajan Malone Work Phone: [facility] Start: 01-23-2022 Chart abstracting Rajan blackwell DO Work Phone: [facility] Comment on above: Outside Labs-[facility] Ord ered outside imaging Start: 01-23-2022 End: 01-23-2022 ambulatory [facility] Work Phone: Start: 01-23-2022 End: 01-23-2022 Patient encounter procedure [facility]-Outpatient Breast Imaging Start: 01-19-2022 End: 01-19-2022 ambulatory [facility] Work Phone: Start: 01-19-2022 End: 01-19-2022 Patient encounter procedure [facility]-Outpatient Bone Densitometry Start: 01-11-2022 End: 01-11-2022 Patient encounter procedure Rajan Malone DO Work Phone: [facility] Comment on above: Bilateral hip pain ( Primary Dx); Foot pain, bilateral; 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); Dyslipidemia; Medial knee pain, right; Well adult exam; Chronic midline low back pain without sciatica; Screening for osteoporosis; Post-menopausal Start: 01-11-2022 End: 01-11-2022 Patient encounter status Rajan Malone DO Work Phone: [facility] Start: 12-22-2021 End: 12-22-2021 ambulatory [facility] Work Phone: Start: 12-22-2021 End: 12-22-2021 Patient encounter procedure [facility]-MRI - [facility] Start: 12-07-2021 ambulatory Rajan Hale gurjit DO Work Phone: [facility] [place] Start: 11-19-2021 Orders Only Kevin Armstrong Work Phone: [facility] Comment on above: Medial knee pain, ri ght (Primary Dx) Start: 11-09-2021 End: 11-09-2021 Patient encounter procedure Kevin Mccullough DO Work Phone: [facility] Comment on above: Medial knee pain, ri ght (Primary Dx) Start: 04-23-2019 Patient encounter status Mikey Mccullough V DO Work Phone: [facility] Work Phone: Procedures Date Procedure Procedure Detail Performing Clinician Start: 10-18-2024 Lipid 1996 panel - Serum or Plasma Rajan Malone DO Work Phone: Start: 09-08-2024 Lipid 1996 panel - Serum or Plasma William Drake APRN.[employer] Work Phone: Start: 06-13-[address] Rajan cox DO Work Phone: Start: 02-16-2022 Radiologic examination of knee Dr. Rajan Malone Work Phone: Start: 01-23-2022 Ultrasonography of breast Start: 01-23-2022 End: 01-23-2022 X-ray of both feet Start: 01-23-2022 Plain x-ray of pelvis and lower extremity Start: 01-23-2022 X-ray of lumbar spine, two or three views Start: 01-19-2022 Screening mammography Start: 01-19-2022 Dual energy X-ray absorptiometry Start: 12-22-2021 MRI of joint of lower extremity Start: 12-14-2020 Adult depression screening assessment Kevin Mccullough V, DO Work Phone: Start: 10-29-2020 Mammography Kevin Mccullough V, DO Work Phone: Start: 04-21-2019 Lipid 1996 panel - Serum or Plasma Rajan Malone DO Work Phone: Start: 12-25-2016 End: 12-25-2016 Bacterial Vaginosis; Rapid Breanna S Hasti ngs [employer] Work Phone: Start: 12-25-2016 Gynecologic examination Routine gynecological examination Marjan Hunt Start: 12-25-2016 End: 12-25-2016 Documentation of current medications Marjan Hunt Start: 05-11-2014 Colonoscopy Kevin Mccullough V, DO Work Phone: Plan of Treatment Date Care Activity Detail Author Start: 05-19-2034 Urine microalbumin profile DTaP,Tdap,Td Vaccine (2 - Td or Tdap) [facility] Start: 10-18-2029 Lipid panel Lipid Screening [facility] Start: 09-08-2029 Lipid panel Lipid Screening [facility] Start: 09-09-2027 Diabetes Screening Diabetes Screenin g [facility] Start: 01-24-2026 HPV TESTING HPV TESTING [facility] Start: 01-24-2026 PAP TESTING PAP TESTING [facility] Start: 01-24-2026 Screening for malign ant neoplasm of cervix Cervical Cancer Screening [facility] Start: 10-16-2025 Hepatitis C screening Hepatitis C Sc arabella [facility] Comment on above: Postponed from 09/20 (Declined at this time) Start: 10-16-2025 HIV screening HIV Screening [facility] Comment on above: Postponed from 09/20 (Declined at this time) Start: 06-13-2025 Screening for malign ant neoplasm of breast Mammogram Screening [facility] Start: 02-25-2025 End: 02-25-2025 Patient encounter procedure 02/25/2025 11:20 AM EST Office Visit [facility] [place] [address] [place] [address] aRjan Malone DO [address] [place] [address] 4 month follow up [facility] Comment on above: 4 month follow up Start: 11-14-2024 End: 11-14-2024 Patient encounter procedure 11/14/2024 1:00 PM EDT Office Visit Family [facility] [place] [address] [place] [address] Rajan Malone DO [address] [place] [address] Physical [facility] [place] Comment on above: Physical Start: 11-10-2024 Influenza vaccination Influenza Vacc ine (#1) [facility] Start: 09-22-2024 End: 09-22-2024 Patient encounter procedure 09/22/2024 8:00 AM EDT Office Visit [facility] [place] [address] [place] [address] William Drake APRN.[employer] [address] [place] [address] bp follow up [facility] [place] Comment on above: bp follow up Start: 09-08-2024 End: 12-08-2024 Comprehensive metabolic 2000 panel - Serum or Plasma [facility] Comment on above: Expected: 09/08/2024 , Expires: 12/08/2024 Start: 09-08-2024 End: 12-08-2024 LIPID PANEL, NONFASTING [facility] Work Phone: Comment on above: Expected: 09/08/2024 , Expires: 12/08/2024 Start: 04-21-2024 Lipid panel Lipid Screening [facility] Start: 04-21-2024 LIPID SCREEN LIPID SCREEN [facility] Start: 11-11-2023 Covid-19 Vaccine ( season) Covid-19 Vaccine () [facility] Start: 11-11-2023 Covid-19 Vaccine () Covid-19 Vaccine () [facility] Start: 11-11-2023 Influenza vaccination Influenza Vacc ine (#1) [facility] Start: 11-10-2022 Influenza vaccination INFLUENZA (#1) [facility] Start: 09-08-2022 Influenza vaccination INFLUENZA (#1) [facility] Comment on above: Postponed from 11/10 (Declined at this time) Start: 04-21-2022 DIABETES SCREEN DIABETES SCREEN [facility] Start: 04-21-2022 Diabetes Screening Diabetes Screenin g [facility] Start: 03-12-2022 DEPRESSION ASSESSMENT DEPRESSION ASS ESSMENT [facility] Start: 01-11-2022 End: 03-13-2022 25-hydroxyvitamin D3 [Mass/volume] in Serum or Plasma VITAMIN D 25 HYDROXY Lab Routine Well adult exam Expected: 01/11/2022, Expires: 03/13/2022 [facility] Work Phone: Comment on above: Expected: 01/11/2022 , Expires: 03/13/2022 Start: 01-11-2022 End: 03-13-2022 CBC W Auto Differential panel - Blood CBC + DIFF Lab Routine Dyslipidemia Well adult exam Expected: 01/11/2022, Expires: 03/13/2022 [facility] Work Phone: Comment on above: Expected: 01/11/2022 , Expires: 03/13/2022 Start: 01-11-2022 End: 03-13-2022 Cobalamin (Vitamin B12) [Mass/volume] in Serum or Plasma VITAMIN B12 BLOOD Lab Routine Well adult exam Expected: 01/11/2022, Expires: 03/13/2022 [facility] Work Phone: Comment on above: Expected: 01/11/2022 , Expires: 03/13/2022 Start: 01-11-2022 End: 03-13-2022 Comprehensive metabolic 2000 panel - Serum or Plasma COMP METABOLIC PANEL Lab Routine Dyslipidemia Well adult exam Expected: 01/11/2022, Expires: 03/13/2022 [facility] Work Phone: Comment on above: Expected: 01/11/2022 , Expires: 03/13/2022 Start: 01-11-2022 End: 03-13-2022 Hemoglobin A1c in Blood HGB A1C Lab Routine Dyslipidemia Well adult exam Expected: 01/11/2022, Expires: 03/13/2022 [facility] Work Phone: Comment on above: Expected: 01/11/2022 , Expires: 03/13/2022 Start: 01-11-2022 End: 03-13-2022 Lipid 1996 panel - Serum or Plasma LIPID PANEL BASIC Lab Routine Dyslipidemia Well adult exam Expected: 01/11/2022, Expires: 03/13/2022 [facility] Work Phone: Comment on above: Expected: 01/11/2022 , Expires: 03/13/2022 Start: 01-11-2022 End: 03-13-2022 Thyrotropin [Units/volume] in Serum or Plasma TSH BLD Lab Routine Well adult exam Expected: 01/11/2022, Expires: 03/13/2022 [facility] Work Phone: Comment on above: Expected: 01/11/2022 , Expires: 03/13/2022 Start: 01-11-2022 End: 03-13-2022 Thyroxine (T4) free [Mass/volume] in Serum or Plasma T4 FREE/FREE THYROX Lab Routine Well adult exam Expected: 01/11/2022, Expires: 03/13/2022 [facility] Work Phone: Comment on above: Expected: 01/11/2022 , Expires: 03/13/2022 Start: 12-14-2021 Adult depression screening assessment DEPRESSION SCREENING [facility] Start: 12-14-2021 HEPATITIS C SCREENING HEPATITIS C SC ARABELLA [facility] Comment on above: Postponed from 09/20 (Declined at this time) Start: 12-14-2021 HIV SCREENING HIV SCREENING [facility] Comment on above: Postponed from 09/20 (Declined at this time) Start: 11-10-2021 Influenza vaccination INFLUENZA (#1) [facility] Start: 10-29-2021 Mammography MAMMOGRAM [facility] Start: 10-29-2021 Screening for malign ant neoplasm of breast Mammogram Screening [facility] Start: 07-31-2021 COVID-19 VACCINE (3 - Booster for Pfizer series) COVID-19 VACCINE (3 - Booster for Pfizer series) [facility] Start: 04-27-2021 COVID-19 VACCINE (3 - Booster for Pfizer series) COVID-19 VACCINE (3 - Booster for Pfizer series) [facility] Start: 04-27-2021 COVID-19 VACCINE (3 - Pfizer series) COVID-19 VACCINE (3 - Pfizer series) [facility] Start: 03-12-2021 DEPRESSION ASSESSMENT DEPRESSION ASS ESSMENT [facility] Start: 03-24-2020 HPV TESTING HPV TESTING [facility] Start: 03-24-2020 PAP TESTING PAP TESTING [facility] Start: 05-12-2019 Colonoscopy COLONOSCOPY [facility] Start: 05-12-2019 COLORECTAL CANCER SCREENING COLORECTAL CANCER SCREENING [facility] Start: 05-12-2019 Screening for malign ant neoplasm of colon [facility] Start: 12-25-2016 End: 12-25-2016 Appointment Appointment [facility] [facility] Start: 12-25-2016 End: 12-25-2016 Mammogram, both breasts Mammogram, Diagnostic, both breasts [facility] Start: 12-25-2016 End: 12-25-2016 Surgery Referral Surgery Referral [facility] Start: 12-25-2016 End: 12-25-2016 Us exam, breast(s) US Breast(s) [facility] Start: 09-21-2015 Pneumococcal Vaccine : 50+ (1 of 1 - PCV) Pneumococcal Vaccine: 50+ (1 of 1 - PCV) [facility] Start: 09-21-2015 SHINGRIX VACCINE (1 of 2) SHINGRIX VACCINE (1 of 2) [facility] Start: 2010 COLOGUARD (FIT-DNA) COLOGUARD (FIT-D NA) [facility] Start: [address] COLONOGRAPHY [facility] Start: 2010 FECAL OCCULT BLOOD FECAL OCCULT BLOO D [facility] Start: 2010 Screening for malign ant neoplasm of colon [facility] Start: 2010 SIGMOIDOSCOPY SIGMOIDOSCOPY [facility] Start: 1984 Hepatitis B Vaccine (1 of 3 - 19+ 3-dose series) Hepatitis B Vaccine (1 of 3 - 19+ 3-dose series) [facility] Start: 1984 Urine microalbumin profile [facility] Start: 09-21-1983 Depression Screening Depression Scre ening [facility] Start: 09-21-1983 HEPATITIS C SCREENING HEPATITIS C [facility] Start: 09-21-1983 Hepatitis C screening Hepatitis C [facility] Start: 09-21-1983 HIV SCREENING HIV SCREENING [facility] Start: 09-21-1983 HIV screening HIV Screening [facility] Start: 1965 HEPATITIS B (1 of 3 - 3-dose series) HEPATITIS B (1 of 3 - 3-dose series) [facility] COLOGUARD COLOGUARD Lab Ro utine Screening for colon cancer Ordered: 10/29/2024 [facility] Work Phone: Comment on above: Ordered: 10/29/2024 End: 12-06-2024 DBT Breast - bilateral screening ADEEL SCREENING [facility] Radiology Routine Encounter for screening mammogram for breast cancer 1 Occurrences starting 11/07/2023 until 12/06/2024 [facility] Work Phone: Comment on above: 1 Occurrences starti ng 11/07/2023 until 12/06/2024 End: 02-10-2023 Dxa bone density study 1/> sites axial skel DXA-AXIAL [facility] Radiology Routine Screening for osteoporosis Post-menopausal 1 Occurrences starting 01/11/2022 until 02/10/2023 [facility] Work Phone: Comment on above: 1 Occurrences starti ng 01/11/2022 until 02/10/2023 End: 12-15-2023 ADEEL SCREENING ADELE SCREENING Radiology Routine Encounter for screening mammogram for breast cancer 1 Occurrences starting 11/15/2022 until 12/15/2023 [facility] Work Phone: Comment on above: 1 Occurrences starti ng 11/15/2022 until 12/15/2023 End: 12-19-2022 MRI KNEE WO IVCON RT MRI KNEE WO IVCON RT Radiology Routine Medial knee pain, right 1 Occurrences starting 11/19/2021 until 12/19/2022 [facility] Work Phone: Comment on above: 1 Occurrences starti ng 11/19/2021 until 12/19/2022 End: 02-10-2023 Radex spine lumbosacral 2/3 views XR LUMBAR GENERAL 3V AP/LAT/L5-S1 Radiology Routine Chronic midline low back pain without sciatica 1 Occurrences starting 01/11/2022 until 02/10/2023 [facility] Work Phone: Comment on above: 1 Occurrences starti ng 01/11/2022 until 02/10/2023 End: 01-06-2023 Screening mammography bi 2-view breast inc cad ADEEL SCREENING Radiology Routine Encounter for screening mammogram for breast cancer 1 Occurrences starting 12/07/2021 until 01/06/2023 [facility] Work Phone: Comment on above: 1 Occurrences starti ng 12/07/2021 until 01/06/2023 End: 10-29-2025 US Carotid arteries - bilateral US CAROTID ARTERIES [facility] V[facility] Lab Routine Elevated BP without diagnosis of hypertension 1 Occurrences starting 10/29/2024 until 10/29/2025 [facility] Comment on above: 1 Occurrences starti ng 10/29/2024 until 10/29/2025 End: 10-29-2025 US Renal artery US RENAL ARTERY [facility] V[facility] Lab Routine Elevated BP without diagnosis of hypertension 1 Occurrences starting 10/29/2024 until 10/29/2025 [facility] Comment on above: 1 Occurrences starti ng 10/29/2024 until 10/29/2025 End: 02-10-2023 XR FOOT GENERAL 3V AP/LAT/OBL BILATERAL XR FOOT GENERAL 3V AP/LAT/OBL BILATERAL Radiology Routine Foot pain, bilateral 1 Occurrences starting 01/11/2022 until 02/10/2023 [facility] Work Phone: Comment on above: 1 Occurrences starti ng 01/11/2022 until 02/10/2023 End: 02-10-2023 XR HIP BILATERAL 5V PEL/AP/LAT EACH HIP XR HIP BILATERAL 5V PEL/AP/LAT EACH HIP Radiology Routine Bilateral hip pain Medial knee pain, right 1 Occurrences starting 01/11/2022 until 02/10/2023 [facility] Work Phone: Comment on above: 1 Occurrences starti ng 01/11/2022 until 02/10/2023 End: 03-17-2023 XR KNEE LIMITED 2V AP/LAT RIGHT XR KNEE LIMITED 2V AP/LAT RIGHT Radiology Routine Medial knee pain, right 1 Occurrences starting 02/15/2022 until 03/17/2023 [facility] Work Phone: Comment on above: 1 Occurrences starti ng 02/15/2022 until 03/17/2023 [facility] Immunizations Immunization Date Immunization Notes Care Provider Karen oliver 05-19-2024 tetanus toxoid, redu yoko diphtheria toxoid, and acellular pertussis vaccine, adsorbed Rajan Malone DO Work Phone: [facility] 01-09-2024 influenza, seasonal, injectable, preservative free Dr. Rajan Malone DO Work Phone: [facility] 01-09-2024 influenza virus vaccine, unspecified formulation William Drake APRN.[employer] Work Phone: [facility] 02-19-2023 influenza, injectabl e, quadrivalent, preservative free Dr. Rajan Malone DO Work Phone: [facility] 01-25-2022 influenza, injectabl e, quadrivalent, preservative free Dr. Rajan Malone DO Work Phone: [facility] 01-25-2022 influenza, seasonal, injectable [facility] Work Phone: 01-25-2022 influenza virus vaccine, unspecified formulation Rajan Malone DO Work Phone: [facility] 03-02-2021 Covid (Pfizer) [facility] 02-09-2021 Covid (Pfizer) [facility] 02-01-2021 influenza, injectabl e, quadrivalent, preservative free Dr. Rajan Malone DO Work Phone: [facility] 02-01-2021 influenza, seasonal, injectable [facility] Work Phone: 02-01-2021 influenza, seasonal, injectable, preservative free Rajan Malone DO Work Phone: [facility] 04-08-2020 influenza, injectabl e, quadrivalent, preservative free Dr. Rajan Malone DO Work Phone: [facility] 04-08-2020 influenza, seasonal, injectable [facility] Work Phone: 04-08-2020 influenza, seasonal, injectable, preservative free Rajan Malone DO Work Phone: [facility] 01-22-2019 influenza, injectabl e, quadrivalent, preservative free Dr. Rajan Malone DO Work Phone: [facility] 01-22-2019 influenza, seasonal, injectable [facility] Work Phone: 02-07-2018 influenza, injectabl e, quadrivalent, preservative free Dr. Rajan Malone DO Work Phone: [facility] 02-07-2018 influenza, seasonal, injectable [facility] Work Phone: 01-03-2017 influenza, injectabl e, quadrivalent, preservative free Dr. Rajan Malone DO Work Phone: [facility] 01-03-2017 influenza, seasonal, injectable [facility] Work Phone: 12-27-2016 influenza, seasonal, injectable Kevin Jamel V, DO Work Phone: [facility] Work Phone: 01-31-2016 influenza, injectabl e, quadrivalent, preservative free Dr. Rajan Malone DO Work Phone: [facility] 01-31-2016 influenza, seasonal, injectable [facility] Work Phone: 12-24-2014 influenza, injectabl e, quadrivalent, preservative free Dr. Rajan Malone DO Work Phone: [facility] 12-24-2014 influenza, seasonal, injectable [facility] Work Phone: 12-24-2014 influenza, seasonal, injectable, preservative free Rajan Malone DO Work Phone: [facility] 12-24-2013 influenza, seasonal, injectable Kevin Mccullough V, DO Work Phone: [facility] Work Phone: 12-04-2013 influenza, injectabl e, quadrivalent, preservative free Dr. Rajan Malone DO Work Phone: [facility] 12-04-2013 influenza, seasonal, injectable [facility] Work Phone: 01-29-2013 Influenza virus vaccine [facility] 01-29-2013 influenza, seasonal, injectable, preservative free Rajan Malone DO Work Phone: [facility] Payers Date Payer Category Payer Self-pay [id number] 2018 Private Health Insurance M[employer] PPO [id number] 2018 Unknown [id number] 2013 Unknown [id number] Unknown [id number] Unknown [id number] Unknown [id number] Unknown [id number] Unknown [id number] Unknown [id number] Social History Date Type Detail Facility Start: 12-19-2010 End: 03-14-2022 Tobacco smoking status NHIS Never smoked tobacco [facility] Work Phone: Start: 12-19-2010 Tobacco use and exposure Smokeless tobacco non-user [facility] Work Phone: Start: 11-09-2021 End: 10-29-2024 Alcohol intake Current drinker of alcohol (finding) [facility] Start: 11-09-2021 End: 06-04-2024 Alcohol intake [facility] Start: 04-16-2019 End: 01-11-2022 History SDOH Alcohol Frequency 5 [facility] Start: 04-16-2019 End: 01-11-2022 History SDOH Alcohol Std Drinks 2 [facility] Start: 09-29-2014 History SDOH Alcohol Comment One glass each Evening [facility] Start: 04-16-2019 End: 01-11-2022 History SDOH Social Connections Mandaen 1 [facility] Start: 04-16-2019 End: 01-11-2022 History SDOH Social Connections Living 3 [facility] Start: 04-16-2019 End: 01-11-2022 History SDOH Stress 4 [facility] Start: 04-16-2019 Education 17 [facility] Start: 1965 Sex Assigned At Female [facility] Start: 10-30-2021 End: 01-11-2022 Exposure to SARS-CoV-2 (event) Not sure [facility] Start: 01-12-2021 End: 01-30-2022 Tobacco smoking status NHIS Unknown if ever smoked [facility] Work Phone: Start: 01-11-2022 History SDOH Physical Activity DPW 0 [facility] Start: 01-11-2022 End: 06-04-2024 Social connection and isolation panel [facility] Do you belong to any clubs or organizations such as gnosticism groups, unions, fraternal or athletic groups, or school groups? No [facility] Are you now , , , , never or living with a partner? [facility] How often to you hav e a drink containing alcohol? 4 or more times a week [facility] How many standard dr inks containing alcohol do you have on a typical day? 3 or 4 [facility] How often do you hav e 6 or more drinks on 1 occasion? Weekly [facility] Start: 02-11-2012 How hard is it for you to pay for the very basics like food, housing, medical care, and heating Not hard at all [facility] Do you feel stress - tense, restless, nervous, or anxious, or unable to sleep at night because your mind is troubled all the time - these days [OSQ] Very much [facility] (I/We) worried steve er (my/our) food would run out before (I/we) got money to buy more. Never true [facility] Start: 04-17-2019 Gender identity Identifies as female gender (finding) [facility] Start: 04-17-2019 Sexual orientation Heterosexual (finding) [facility] Start: 06-17-2024 Sex Female (finding) [facility] How many standard dr inks containing alcohol do you have on a typical day? 1 or 2 [facility] How often do you hav e 6 or more drinks on 1 occasion? Less than monthly [facility] Do you feel stress - tense, restless, nervous, or anxious, or unable to sleep at night because your mind is troubled all the time - these days [OSQ] To some extent [facility] Functional Status Date Assessment Result Facility 09-29-2014 Are you deaf, or do you have serious difficulty hearing No 09/29/2014 2:09 PM Wanda Leone RN No [facility] 09-29-2014 Are you blind, or do you have serious difficulty seeing, even when wearing glasses No 09/29/2014 2:09 PM Wanda Leone RN No [facility] 09-29-2014 Do you have serious difficulty walking or climbing stairs No 09/29/2014 2:09 PM Wanda Leone RN No [facility] 09-29-2014 Do you have difficul ty dressing or bathing No 09/29/2014 2:09 PM Wanda Leone RN No [facility] 09-29-2014 Because of a physica l, mental, or emotional condition, do you have difficulty doing errands alone such as visiting a physician's office or shopping No 09/29/2014 2:09 PM Wanda Leone RN No [facility] Mental Status Date Assessment Result Facility 09-29-2014 Because of a physica l, mental, or emotional condition, do you have serious difficulty concentrating, remembering, or making decisions No 09/29/2014 2:09 PM Wanda Leone RN No [facility] Clinical Notes 11-09-2021 to 10-31-2024 Telephone Encounter - Hellen Perez MA - 10/31/2024 9:49 AM EDTTelephone Encounter - Hellen Perez MA - 10/31/2024 9:49 AM Rajan Munoz DO - 10/29/2024 10:39 AM EDT Note Date & Type Note Facility 10-31-2024 Miscellaneous Notes See pt message We had discussed low dose Metformin to help with weight loss. Can we move forward with that? documented in this encounter [facility] 10-31-2024 Telephone encounter Note See pt message We had discussed low dose Metformin to help with weight loss. Can we move forward with that? [facility] 10-29-2024 Note HNO ID: [id number] Author: RAJAN MALONE, DO Service: ? Author Type: Physician Type: Progress Notes Filed: 10/29/2024 12:05 Note Text: CC: Stephany Dinh is a 59 year old female who presents to the office for physical HPI: Blood pressure was mildly elevated in 140s/80s. Was seen in office and had 130s/80s in primary care office. Heart rate in the office and at rest has been controlled. She is not wanting to start on medication for this. Doesn't have symptoms of dyspnea or dizziness/LH or syncope. Is trying to make modifications in her exercise- increasing her walking. Also is eating overall healthy diet. Cutting back on some alcohol intake as well. Also limiting salt and processed foods. The 10-year ASCVD risk score (Massimo DK, et al., 2019) is: 2.7% Values used to calculate the score: Age: 59 years Clincally relevant sex: Female Is Non- : No Diabetic: No Tobacco smoker: No Systolic Blood Pressure: 140 mmHg Is BP treated: No HDL Cholesterol: 87 mg/dL Total Cholesterol: 215 mg/dL Mood, doing well overall. No new concerns. Right knee pain, chronic, seems to be worsening some. With prolonged standing and walking worse. Inner medial knee joint. Hx of some avascular necrosis. She is concerned that this is worsening. Hasn't had surgery in the past. Hasn't recently had PHYSICAL THERAPY or seen Orthopedics. PAST MEDICAL HISTORY Diagnosis Date Plantar fasciitis Solitary cyst of breast left >right breast, benign PAST SURGICAL HISTORY Procedure Laterality Date ADENOIDECTOMY PRIMARY Adenoidectomy COLONOSCOPY FLX DX W/COLLJ SPEC WHEN PFRMD 3-2-15 TONSILLECTOMY PRIMARY/SECONDARY Tonsillectomy Social History: SOCIAL HISTORY[1] FAMILY HISTORY Problem Relation Age of Onset Hearing Loss Mother Hypertension Mother Breast Cancer Mother DCIS Lung Cancer Mother Psychiatry Sister Colon Cancer Maternal Grandmother great Cancer Maternal Grandmother bone Cancer Maternal Aunt lung Breast Cancer Maternal Aunt Cancer Maternal Uncle esophageal Cancer Other cousin Current Outpatient prescriptions: Cholecalciferol, Vitamin D3, 50 mcg (2,000 unit) cap Take 50 mcg by mouth once daily. Allergies: ALLERGIES No Known Allergies ROS: See HPI PE: 10/29/24 1021 BP: 140/86 Pulse: 68 Resp: 12 Temp: 36.7 ?C (98 ?F) TempSrc: Right Tympanic Weight: 82.6 kg (182 lb) Height: 173 cm (5' 8.11) Gen: AANDO, NAD, non-toxic appearing, Pleasant, cooperative, well dressed HEENT: NT/AC, PERRLA, wearing glasses, EOMs intact b/l, nares clear and patent b/l, pharynx without erythema, exudate or lesions. Uvula midline. MMM, EACs without erythema or debris. TMs pearly barfield with intact landmarks b/l. Neck: supple, No cervical LAD, no thyromegaly, no carotid bruits CV: RRR, normal S1 and S2, no murmurs, no gallops, no rubs, Pulses 2+ and symmetric in UE and LE b/l Lungs: normal respiratory effort, CTA b/l, no wheezing or rhonchi or rales Abd: soft, NT, ND, +BS, no hepatosplenomegaly MS: + joint line TTP right knee joint with mild effusion present and decreased ROM Neuro: CN II-XII intact b/l, strength 5/5 b/l UE and LE, DTRs 2/4 UE and LE, sensation intact. Skin: warm, dry, intact, No rashes or lesions on exposed skin. No edema, normal peripheral pulses ASSESSMENT/PLAN: 1. Well adult exam - ICD9: V70.0, ICD10: Z00.00 (primary diagnosis) - Counseled on healthy diet and regular exercise - Colorectal cancer screening - ordered Cologuard - Breast cancer screening - needs to consider MRI breast due to her density She is cutting back on alcohol intake to help her future health risks and BLOOD PRESSURE as well. 2. Screening for colon cancer - ICD9: V76.51, ICD10: Z12.11 She isn't interested in colonoscopy - COLOGUARD 3. Elevated BP without diagnosis of hypertension - ICD9: 796.2, ICD10: R03.0 - Encouraged dietary sodium restriction/DASH diet - Recommended regular aerobic exercise. - Recommend home blood pressure monitoring, to bring results in on next visit - Discussed need and benefit for weight loss. - Reviewed risks of HTN and principles of treatment - Goal of BP <130/80 - US RENAL ARTERY [facility] - US CAROTID ARTERIES [facility] 4. Chronic pain of right knee - ICD9: 719.46, 338.29, ICD10: M25.561, G89.29 MRI knee as previously ordered then start in PT - CONSULT TO PHYSICAL THERAPY 5. 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) - ICD9: 733.49, ICD10: M87.88 MRI knee as previously ordered then start in PT - CONSULT TO PHYSICAL THERAPY 6. Heterogeneously dense tissue of both breasts on mammography - ICD9: 793.82, ICD10: R92.333 Need for MRI breast as previously ordered 7. Dyslipidemia - ICD9: 272.4, ICD10: E78.5 - Controled - Counseled on healthy diet and regular exercise Rajan Malone, DO To ER if develops chest pain, shortness of breath, or severe worsening of (more content not included)... [facility] 10-29-2024 History of Present illness Narrative CC: Stephany Dinh is a 59 year old female who presents to the office for physical HPI: Blood pressure was mildly elevated in 140s/80s. Was seen in office and had 130s/80s in primary care office. Heart rate in the office and at rest has been controlled. She is not wanting to start on medication for this. Doesn't have symptoms of dyspnea or dizziness/LH or syncope. Is trying to make modifications in her exercise- increasing her walking. Also is eating overall healthy diet. Cutting back on some alcohol intake as well. Also limiting salt and processed foods. The 10-year ASCVD risk score (Massimo CARRILLO, et al., 2019) is: 2.7% Values used to calculate the score: Age: 59 years Clincally relevant sex: Female Is Non- : No Diabetic: No Tobacco smoker: No Systolic Blood Pressure: 140 mmHg Is BP treated: No HDL Cholesterol: 87 mg/dL Total Cholesterol: 215 mg/dL Mood, doing well overall. No new concerns. Right knee pain, chronic, seems to be worsening some. With prolonged standing and walking worse. Inner medial knee joint. Hx of some avascular necrosis. She is concerned that this is worsening. Hasn't had surgery in the past. Hasn't recently had PHYSICAL THERAPY or seen Orthopedics. PAST MEDICAL HISTORY Diagnosis Date Plantar fasciitis Solitary cyst of breast left >right breast, benign PAST SURGICAL HISTORY Procedure Laterality Date ADENOIDECTOMY PRIMARY <AGE 12 Adenoidectomy COLONOSCOPY FLX DX W/COLLJ SPEC WHEN PFRMD 3-2-15 TONSILLECTOMY PRIMARY/SECONDARY <AGE 12 Tonsillectomy Social History: SOCIAL HISTORY[1] FAMILY HISTORY Problem Relation Age of Onset Hearing Loss Mother Hypertension Mother Breast Cancer Mother DCIS Lung Cancer Mother Psychiatry Sister Colon Cancer Maternal Grandmother great Cancer Maternal Grandmother bone Cancer Maternal Aunt lung Breast Cancer Maternal Aunt Cancer Maternal Uncle esophageal Cancer Other cousin Current Outpatient prescriptions: Cholecalciferol, Vitamin D3, 50 mcg (2,000 unit) cap Take 50 mcg by mouth once daily. Allergies: ALLERGIES No Known Allergies ROS: See HPI PE: 10/29/24 1021 BP: 140/86 Pulse: 68 Resp: 12 Temp: 36.7 C (98 F) TempSrc: Right Tympanic Weight: 82.6 kg (182 lb) Height: 173 cm (5' 8.11) Gen: A&O, NAD, non-toxic appearing, Pleasant, cooperative, well dressed HEENT: NT/AC, PERRLA, wearing glasses, EOMs intact b/l, nares clear and patent b/l, pharynx without erythema, exudate or lesions. Uvula midline. MMM, EACs without erythema or debris. TMs pearly barfield with intact landmarks b/l. Neck: supple, No cervical LAD, no thyromegaly, no carotid bruits CV: RRR, normal S1 and S2, no murmurs, no gallops, no rubs, Pulses 2+ and symmetric in UE and LE b/l Lungs: normal respiratory effort, CTA b/l, no wheezing or rhonchi or rales Abd: soft, NT, ND, +BS, no hepatosplenomegaly MS: + joint line TTP right knee joint with mild effusion present and decreased ROM Neuro: CN II-XII intact b/l, strength 5/5 b/l UE and LE, DTRs 2/4 UE and LE, sensation intact. Skin: warm, dry, intact, No rashes or lesions on exposed skin. No edema, normal peripheral pulses ASSESSMENT/PLAN: 1. Well adult exam - ICD9: V70.0, ICD10: Z00.00 (primary diagnosis) - Counseled on healthy diet and regular exercise - Colorectal cancer screening - ordered Cologuard - Breast cancer screening - needs to consider MRI breast due to her density She is cutting back on alcohol intake to help her future health risks and BLOOD PRESSURE as well. 2. Screening for colon cancer - ICD9: V76.51, ICD10: Z12.11 She isn't interested in colonoscopy - COLOGUARD 3. Elevated BP without diagnosis of hypertension - ICD9: 796.2, ICD10: R03.0 - Encouraged dietary sodium restriction/DASH diet - Recommended regular aerobic exercise. - Recommend home blood pressure monitoring, to bring results in on next visit - Discussed need and benefit for weight loss. - Reviewed risks of HTN and principles of treatment - Goal of BP <130/80 - US RENAL ARTERY [facility] - US CAROTID ARTERIES [facility] 4. Chronic pain of right knee - ICD9: 719.46, 338.29, ICD10: M25.561, G89.29 MRI knee as previously ordered then start in PT - CONSULT TO PHYSICAL THERAPY 5. 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) - ICD9: 733.49, ICD10: M87.88 MRI knee as previously ordered then start in PT - CONSULT TO PHYSICAL THERAPY 6. Heterogeneously dense tissue of both breasts on mammography - ICD9: 793.82, ICD10: R92.333 Need for MRI breast as previously ordered 7. Dyslipidemia - ICD9: 272.4, ICD10: E78.5 - Controled - Counseled on healthy diet and regular exercise aRjan Malone DO To ER if develops chest pain, shortness of breath, or severe worsening of symptoms. Discussed risks, benefits, alternatives, and potential side effects of medications. Patient expressed understanding and agreed with the plan. Rajan Malone DO [address] [place] [address] [1] Social History Tobacco Use Smoking status: Never Smokeless tobacco: Never Vaping Use Vaping status: Never Used Substance Use Topics Alcohol use: Yes Alcohol/week: 9.1 standard drinks of alcohol Types: 7 Mixed Drinks per week Comment: One glass each Evening Drug use: No documented in this encounter [facility] [facility] 10[facility]24 Instructions Rajan Malone DO - 10/29/2024 10:[address] Arlin Gonzales Primary care physician documented in this encounter [facility] 10-16-2024 Note HNO ID: [id number] Author: PRAVEENA BERRY APRN.CNP Service: ? Author Type: Nurse Practitioner Type: Progress Notes Filed: 10/17/2024 17:11 Note Text: This is a 59 year old female who presents today with: One month BP follow up, and has other health maintenance related things she would like to talk about Follow up from 09/08 OV with William Drake: ASSESSMENT/PLAN: 1. Hypertension, essential - ICD9: 401.9, ICD10: I10 (primary diagnosis) - New diagnosis - Recommend home blood pressure monitoring, to bring results to next visit - Encouraged sodium restriction, DASH or Mediterranean diet - Recommend regular aerobic exercise - Decrease alcohol consumption, currently drinking equivalent of 8 shots of liquor daily - COMPREHENSIVE METABOLIC PANEL - COMPLETE BLOOD COUNT AND DIFFERENTIAL 2. Screening for diabetes mellitus - ICD9: V77.1, ICD10: Z13.1 - HEMOGLOBIN A1C 3. Encounter for lipid screening for cardiovascular disease - ICD9: V77.91, V81.2, ICD10: Z13.220, Z13.6 - LIPID PANEL, NONFASTING 4. Overweight (BMI 25.0-29.9) - ICD9: 278.02, ICD10: E66.3 -Stable William Drake APRN.CNP Note Details Instructions Return in about 2 weeks (around 09/22/2024) for annual physical-40min, BP check. HISTORY OF PRESENT ILLNESS: Hypertension: Most Recent 10/18/21 - 10/16/24 01/11/22 02/28/22 11:19 09/08/24 10:45 10/16/24 08:41 BP 136/88 10/16/24 08:41 136/84 120/80 150/75 136/88 - Not currently on antihypertensive medication; prefers lifestyle modifications before considering pharmacotherapy. - Reports situational stress levels, contributing to elevated BP. - Discontinued home BP monitoring due to inaccurate readings from a faulty device which causes her increased anxiety and ultimately elevated BPs - Recent weight loss of 12 lbs over the past couple of years, reports that she has recently as well started a health journey as she knows she is approaching 60, her mother just passed, and she has things she needs to work on - Denies consistent dizziness or nausea; occasional headaches at work, resolving upon leaving the air-conditioned environment. Denies changes in vision Situational Anxiety: - Reports increased anxiety following a negative experience with a healthcare provider - Engages in deep breathing exercises and considering yoga to manage anxiety. - Family history of anxiety; mother also affected. - Experiencing significant stress due to recent life events, including the passing of her mother in July, managing her father's finances, and home renovations. Alcohol Use: - Consumes alcohol regularly; currently tapering intake with the goal of cessation by November. - Acknowledges alcohol use as a coping mechanism for anxiety and sleep issues, realizes that this can add to those issues after researching - Denies being an alcoholic but that she and her do drink too much enjoying their nightly cocktails; working on reducing alcohol consumption gradually. Fibrocystic Breasts: - History of extremely fibrocystic breasts, making mammograms difficult to interpret. - Considering alternating mammograms with breast MRIs every six months for better evaluation. 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 - Recent onset of mild, shifting joint aches in the knee, thigh, ankle, and calf. - Pain not exacerbated by movement; more noticeable when still. Being active actually helps it. It comes and goes. - Previous consultation with a knee specialist in February 2022; advised against knee replacement due to age. Paresthesia in Toes: - Reports occasional tingling sensation in both big toes. - Sensation is not constant and not associated with any specific position or discoloration. - Denies being diabetic HLD Lipid panel elevated, response on lab results from provider: Please let patient know her lipids are significantly elevated. Would recommend statin however statins and alcohol use are contraindicated so for now continue to decrease ETOH consumption and follow low cholesterol diet. - patient is currently working on lifestyle changes to modify this and would like a recheck. It was also a nonfasting and ones in the past were fasting Total Cholesterol, Nonfasting Date Value Ref Range Status 09/08/2024 288 (H) <200 mg/dL Final Comment: <200 mg/dL, Desirable 200-239 mg/dL, Borderline high >239 mg/dL, High HDL Cholesterol, Nonfasting Date Value Ref Range Status 09/08/2024 108 >39 mg/dL Final Comment: 40-59 mg/dL, Acceptable >59 mg/dL, High: Negative risk factor for coronary heart disease <40 mg/dL, Low: Positive risk factor for coronary heart disease LDL Cholesterol Calculated, Nonfasting Date Value Ref Range Status 09/08/2024 147 (H) <100 mg/dL (more content not included)... [facility] 09-24-2024 Telephone encounter Note Message read with results from Provider on 09/24/24 at 7:09 am. Fe Cardoza MA [facility] 09-24-2024 Miscellaneous Notes Message read with results from Provider on 09/24/24 at 7:09 am. Fe Cardoza MA Pt active on mychart- message sent Arline Carl MA Please let patient know her lipids are significantly elevated. Would recommend statin however statins and alcohol use are contraindicated so for now continue to decrease ETOH consumption and follow low cholesterol diet. documented in this encounter [facility] 09-23-2024 Telephone encounter Note Pt active on [employer]- message sent Arline Carl MA [facility] 09-22-2024 Telephone encounter Note Please let patient know her lipids are significantly elevated. Would recommend statin however statins and alcohol use are contraindicated so for now continue to decrease ETOH consumption and follow low cholesterol diet. [facility] Work Phone: 09-08-2024 Note HNO ID: [id number] Author: WILLIAM DRAKE APRN.CNP Service: ? Author Type: Nurse Practitioner Type: Progress Notes Filed: 09/08/2024 11:53 Note Text: Chief Complaint Patient presents with: Blood Pressure HPI Stephany Dinh is a 58 year old female who presents here today for Above Complaints. Patient presents for elevated BP at home. Patient reports home BP runs 140-160 at home. Home BP cuff tested in office and reads about 10 points higher than in office readings. Also reports intermittent nausea, dizziness and headache. Past medical history, appointments, medications, allergies reviewed. Previous Medical History PAST MEDICAL HISTORY Diagnosis Date Hypercholesteremia 03/2014 Plantar fasciitis Solitary cyst of breast left >right breast, benign Previous Surgical History PAST SURGICAL HISTORY Procedure Laterality Date ADENOIDECTOMY PRIMARY Adenoidectomy COLONOSCOPY FLX DX W/COLLJ SPEC WHEN PFRMD 3-2-15 TONSILLECTOMY PRIMARY/SECONDARY Tonsillectomy Family History FAMILY HISTORY Problem Relation Age of Onset Hearing Loss Mother Hypertension Mother Breast Cancer Mother DCIS Colon Cancer Maternal Grandmother great Cancer Maternal Grandmother bone Cancer Maternal Aunt lung Cancer Maternal Uncle esophageal Cancer Other cousin Psychiatry Sister Breast Cancer Maternal Aunt Patient Allergies ALLERGIES No Known Allergies Current Medications Current Outpatient Medications on File Prior to Visit Medication Sig meloxicam (MOBIC) 15 mg tablet Take 1 tablet by mouth once daily. No current facility-administered medications on file prior to visit. Social History Social History Tobacco Use Smoking status: Never Smokeless tobacco: Never Vaping Use Vaping status: Never Used Substance Use Topics Alcohol use: Yes Alcohol/week: 9.1 standard drinks of alcohol Types: 7 Mixed Drinks per week Comment: One glass each Evening Drug use: No Review of Symptoms REVIEW OF SYSTEMS SEE HPI EXAM: BP 150/75 Pulse 82 Wt 84 kg (185 lb 3 oz) LMP 11/21/2017 (Approximate) BMI 28.73 kg/m? General Appearance: Well appearing, alert, in no acute distress, well-hydrated, well nourished. Lungs: Lungs clear to auscultation. No wheezing, rhonchi, rales. Heart: RRR without murmur, gallop, or rubs. No ectopy. Health Maintenance List Depression Screening Never done Hepatitis C Screening Never done HIV Screening Never done Hepatitis B Vaccine(1 of 3 - 19+ 3-dose series) Never done Shingrix Vaccine(1 of 2) Never done Pneumococcal Vaccine: 50+(1 of 1 - PCV) Never done Colorectal Cancer Screening due on 05/12/2019 Diabetes Screening due on 04/21/2022 Covid-19 Vaccine(2023- season) due on 11/11/2023 Lipid Screening due on 04/21/2024 Mammogram Screening due on 06/13/2025 Cervical Cancer Screening due on 01/24/2026 DTaP,Tdap,Td Vaccine(2 - Td or Tdap) due on 05/19/2034 Influenza Vaccine Completed Data reviewed Last 5 Encounter BP Readings: Date: BP: 09/08/2024 150/75 02/28/2022 120/80 01/11/2022 136/84 12/14/2020 120/78 04/23/2019 132/82 ASSESSMENT/PLAN: 1. Hypertension, essential - ICD9: 401.9, ICD10: I10 (primary diagnosis) - New diagnosis - Recommend home blood pressure monitoring, to bring results to next visit - Encouraged sodium restriction, DASH or Mediterranean diet - Recommend regular aerobic exercise - Decrease alcohol consumption, currently drinking equivalent of 8 shots of liquor daily - COMPREHENSIVE METABOLIC PANEL - COMPLETE BLOOD COUNT AND DIFFERENTIAL 2. Screening for diabetes mellitus - ICD9: V77.1, ICD10: Z13.1 - HEMOGLOBIN A1C 3. Encounter for lipid screening for cardiovascular disease - ICD9: V77.91, V81.2, ICD10: Z13.220, Z13.6 - LIPID PANEL, NONFASTING 4. Overweight (BMI 25.0-29.9) - ICD9: 278.02, ICD10: E66.3 -Stable William Drake APRN.[facility] 09-08-2024 History of Present illness Narrative Chief Complaint Patient presents with: Blood Pressure HPI Stephany Dinh is a 58 year old female who presents here today for Above Complaints. Patient presents for elevated BP at home. Patient reports home BP runs 140-160 at home. Home BP cuff tested in office and reads about 10 points higher than in office readings. Also reports intermittent nausea, dizziness and headache. Past medical history, appointments, medications, allergies reviewed. Previous Medical History PAST MEDICAL HISTORY Diagnosis Date Hypercholesteremia 03/2014 Plantar fasciitis Solitary cyst of breast left >right breast, benign Previous Surgical History PAST SURGICAL HISTORY Procedure Laterality Date ADENOIDECTOMY PRIMARY <AGE 12 Adenoidectomy COLONOSCOPY FLX DX W/COLLJ SPEC WHEN PFRMD 3-2-15 TONSILLECTOMY PRIMARY/SECONDARY <AGE 12 Tonsillectomy Family History FAMILY HISTORY Problem Relation Age of Onset Hearing Loss Mother Hypertension Mother Breast Cancer Mother DCIS Colon Cancer Maternal Grandmother great Cancer Maternal Grandmother bone Cancer Maternal Aunt lung Cancer Maternal Uncle esophageal Cancer Other cousin Psychiatry Sister Breast Cancer Maternal Aunt Patient Allergies ALLERGIES No Known Allergies Current Medications Current Outpatient Medications on File Prior to Visit Medication Sig meloxicam (MOBIC) 15 mg tablet Take 1 tablet by mouth once daily. No current facility-administered medications on file prior to visit. Social History Social History Tobacco Use Smoking status: Never Smokeless tobacco: Never Vaping Use Vaping status: Never Used Substance Use Topics Alcohol use: Yes Alcohol/week: 9.1 standard drinks of alcohol Types: 7 Mixed Drinks per week Comment: One glass each Evening Drug use: No Review of Symptoms REVIEW OF SYSTEMS SEE HPI EXAM: BP 150/75 Pulse 82 Wt 84 kg (185 lb 3 oz) LMP 11/21/2017 (Approximate) BMI 28.73 kg/m General Appearance: Well appearing, alert, in no acute distress, well-hydrated, well nourished. Lungs: Lungs clear to auscultation. No wheezing, rhonchi, rales. Heart: RRR without murmur, gallop, or rubs. No ectopy. Health Maintenance List Depression Screening Never done Hepatitis C Screening Never done HIV Screening Never done Hepatitis B Vaccine(1 of 3 - 19+ 3-dose series) Never done Shingrix Vaccine(1 of 2) Never done Pneumococcal Vaccine: 50+(1 of 1 - PCV) Never done Colorectal Cancer Screening due on 05/12/2019 Diabetes Screening due on 04/21/2022 Covid-19 Vaccine(2023- season) due on 11/11/2023 Lipid Screening due on 04/21/2024 Mammogram Screening due on 06/13/2025 Cervical Cancer Screening due on 01/24/2026 DTaP,Tdap,Td Vaccine(2 - Td or Tdap) due on 05/19/2034 Influenza Vaccine Completed Data reviewed Last 5 Encounter BP Readings: Date: BP: 09/08/2024 150/75 02/28/2022 120/80 01/11/2022 136/84 12/14/2020 120/78 04/23/2019 132/82 ASSESSMENT/PLAN: 1. Hypertension, essential - ICD9: 401.9, ICD10: I10 (primary diagnosis) - New diagnosis - Recommend home blood pressure monitoring, to bring results to next visit - Encouraged sodium restriction, DASH or Mediterranean diet - Recommend regular aerobic exercise - Decrease alcohol consumption, currently drinking equivalent of 8 shots of liquor daily - COMPREHENSIVE METABOLIC PANEL - COMPLETE BLOOD COUNT AND DIFFERENTIAL 2. Screening for diabetes mellitus - ICD9: V77.1, ICD10: Z13.1 - HEMOGLOBIN A1C 3. Encounter for lipid screening for cardiovascular disease - ICD9: V77.91, V81.2, ICD10: Z13.220, Z13.6 - LIPID PANEL, NONFASTING 4. Overweight (BMI 25.0-29.9) - ICD9: 278.02, ICD10: E66.3 -Stable William Drake APRN.[employer] documented in this encounter [facility] 06-30-2025 Telephone encounter Note Patient calls for HTN. Nurse triage recommends see provider within 3 days. Patient not wanting to see anyone but Dr. Malone who is not available within time frame needed to be seen. Patient wanting to wait until Dr. Malone who has no appointments available any time soon. After explaining this patient agreeable to see another provider. Care advice reviewed. Reason for Disposition Systolic BP >= 160 OR Diastolic >= 100 Answer Assessment - Initial Assessment Questions 1. BLOOD PRESSURE: BP elevated for a couple of months ranging from 145/84 to 167/90. Reports intermittent sweating, dizziness, nausea, and headache (nothing currently). 2. ONSET: A couple of months. 3. HOW: At Home Cuff 4. HISTORY:No 5. MEDICINES: No 6. OTHER SYMPTOMS: Headache, Dizziness, Nausea, Sweating intermittently No blurred vision, chest pain, difficulty breathing, headache, weakness. Protocols used: Blood Pressure - [id number] [facility] 09-08-2024 Miscellaneous Notes Patient calls for HTN. Nurse triage recommends see provider within 3 days. Patient not wanting to see anyone but Dr. Malone who is not available within time frame needed to be seen. Patient wanting to wait until Dr. Malone who has no appointments available any time soon. After explaining this patient agreeable to see another provider. Care advice reviewed. Reason for Disposition Systolic BP >= 160 OR Diastolic >= 100 Answer Assessment - Initial Assessment Questions 1. BLOOD PRESSURE: BP elevated for a couple of months ranging from 145/84 to 167/90. Reports intermittent sweating, dizziness, nausea, and headache (nothing currently). 2. ONSET: A couple of months. 3. HOW: At Home Cuff 4. HISTORY:No 5. MEDICINES: No 6. OTHER SYMPTOMS: Headache, Dizziness, Nausea, Sweating intermittently No blurred vision, chest pain, difficulty breathing, headache, weakness. Protocols used: Blood Pressure - [id number] documented in this encounter [facility] 11-07-2023 Note Patient Outreach (IN [facility]) STEPHANY DINH ([id number]) 1965 F Date Time Provider Department 11/07/23 RAJAN MALONE During your visit today, we recorded the following information about you: Allergies As of Date: 11/07/2023 (No Known Allergies) Date Reviewed: 02/28/2022 Reviewed by: Tamara Vergara LPN - Fully Assessed Visit Diagnosis:Encounter for screening mammogram for breast cancer [Z12.31] Order(s):ADEEL SCREENING W FRANKY [[id number]] Order #: [id number] FUTURE Prescriptions as of 11/12/2023 - meloxicam (MOBIC) 15 mg tablet Take 1 tablet by mouth once daily. Meds Comments as of 12/14/2020: Taking Vitamin D daily Problem List As Of Date 11/07/2023 Noted Resolved Breast cyst [N60.09] 01/03/2013 External hemorrhoid [K64.4] 03/10/2014 Rectal bleeding [K62.5] 03/10/2014 Dyslipidemia [E78.5] 04/23/2019 Well adult exam [Z00.00] 04/23/2019 Overweight (BMI 25.0-29.9) [E66.3] 04/23/2019 Situational anxiety [F41.8] 04/23/2019 Chronic insomnia [F51.04] 12/14/2020 Encounter Status:Closed by NonpareilCHELSEYUSER on 11/12/23 [facility] 02-17-2022 History of Present illness Narrative Patient seen at the request of her PCP, Rajan Malone DO for the chief complaint listed below. A copy of this note will be sent through the EMR. History of present illness: Stephany Dinh is a 56 year old female who comes in today with a chief complaint of right knee pain. Right knee pain is medial. She had an injury quite some time ago where she injured the knee. She was having some pain. This summer she then twisted the knee again back in October and pain got worse. She has been seen by her primary care provider and also by Dr. Jamel nielsen in [place]. She has not done any physical therapy. She denies any popping, clicking, locking or giving way. She has some pain at night. She denies any history of prolonged steroids or history of immunosuppressants. She has not had a work-up for the avascular necrosis that she has on MRI. 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 Works for [employer] No Known Allergies PAST MEDICAL HISTORY Diagnosis Date Hypercholesteremia 03/2014 Plantar fasciitis Solitary cyst of breast left >right breast, benign PAST SURGICAL HISTORY Procedure Laterality Date ADENOIDECTOMY PRIMARY <AGE 12 Adenoidectomy COLONOSCOPY FLX DX W/COLLJ SPEC WHEN PFRMD 3-2-15 TONSILLECTOMY PRIMARY/SECONDARY <AGE 12 Tonsillectomy Current Outpatient Medications on File Prior to Visit Medication Sig meloxicam (MOBIC) 15 mg tablet Take 1 tablet by mouth once daily. No current facility-administered medications on file prior to visit. FAMILY HISTORY Problem Relation Age of Onset Hearing Loss Mother Hypertension Mother Breast Cancer Mother DCIS Colon Cancer Maternal Grandmother great Cancer Maternal Grandmother bone Cancer Maternal Aunt lung Cancer Maternal Uncle esophageal Cancer Other cousin Psychiatry Sister Breast Cancer Maternal Aunt Review of Symptoms: Cardiac: No chest pain Pulmonary: No trouble breathing Constitutional: No fevers, chills GI: No current GI upset Musculoskeletal: As above This is a well appearing, well nourished patient in no acute distress. Head is normocephalic and atraumatic. Patient has white sclera and pink conjunctiva. Mucous membranes are moist. Patient breathes easily and has normal chest wall excursion. Patient has a Normal. affect. Mildly overweight. Normal gait. Examination of the right knee reveals that she has full range of motion. Some lateral joint line pain on palpation. No medial joint line pain on palpation. No effusion. Negative Orion's. Ligamentously stable. Examination of the contralateral knee reveals that there is normal stability, strength, range of motion and no pain on palpation. There is no significant effusion. Sensation grossly intact. There is good range of motion of the ipsilateral hip. No significant pain or restrictions with range of motion or log-rolling. Good strength. Normal stability. Negative straight leg raise. Magnetic resonance images from an outside facility are personally reviewed by me and demonstrate AVN lesion posterior condyle. Small medial meniscus tear. They have been down-loaded to the [facility] system. Plain films from [facility] are personally reviewed by me and demonstrate normal findings Impression: Stephany Dinh is a 56 year old female with symptoms related to likely arthritis inside the knee and possibly the meniscus tear. The avascular necrosis is likely an incidental finding that has been there for some time. This is likely not related to trauma. If there is concern from her primary care physician then there should be a work-up for this performed by her primary care physician. Plan: 1. Reassurance 2. I would not recommend any surgical intervention for this avascular necrosis. Surgery could be a very long run for short slide. If she would like to pursue that I would defer to one of our total joint replacement specialist who specializes in management of avascular necrosis 3. Return to clinic as needed 4. Referral to PT. Claudia Walton MD documented in this encounter [facility] 02-16-2022 Miscellaneous Notes Patient returned call and went over notes from Dr Malone with understanding. Patient said she did her xray at [facility] and had put on disc so she can take to appt Sunday with Dr Walton. Left message for return call. I am not sure what Dr. Walton would like so she can wait if she would like to d/w him on Sunday Rajan Malone DO Sent pt [employer] message Good Morning, Patient was calling if she still needs to have an X-Ray if she had an MRI? Please advise Thank You documented in this encounter [facility] 02-15-2022 Miscellaneous Notes Xray order placed. Elke Fierro APRN.[employer] Please order xray of right knee. Will fax order to [facility]. Hellen Harkins Ma Please see pt message. Looks like pt had X-rays recently completed on 01/23. Hellen Harkins Ma documented in this encounter [facility] 01-23-2022 History of Present illness Narrative Please see outside XR reports: Scan on 01/23/2022 11:59 AM by External Provider: X-ray Scan on 01/23/2022 11:58 AM by External Provider: X-ray Scan on 01/23/2022 11:57 AM by External Provider: X-ray Scan on 01/23/2022 11:52 AM by External Provider: X-ray Marcela Gomez LPN documented in this encounter [facility] 01-23-2022 History of Present illness Narrative Please see outside lab results: Scan on 01/23/2022 9:15 AM by External Provider: Chemistry Scan on 01/23/2022 10:18 AM by External Provider: Miscellaneous Lab Marcela Gomez LPN documented in this encounter [facility] 01-11-2022 History of Present illness Narrative CC: Stephany Dinh is a 56 year old female who presents to the office for MRI follow up HPI: Right knee pain, started around July 2020, has seen Dr. 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 Is struggling since this knee pain is affecting her gait and mobility. Is interested in seeing a surgeon for opinion. She is concerned about her risk of this same concern/issue of her hips and feet and low back since she has been also having pain in these areas. No bowel or bladder changes. Hx of injury with above concerns with her knee PAST MEDICAL HISTORY Diagnosis Date Hypercholesteremia 03/2014 Plantar fasciitis Solitary cyst of breast left >right breast, benign PAST SURGICAL HISTORY Procedure Laterality Date ADENOIDECTOMY PRIMARY <AGE 12 Adenoidectomy COLONOSCOPY FLX DX W/COLLJ SPEC WHEN PFRMD 05-11-14 TONSILLECTOMY PRIMARY/SECONDARY <AGE 12 Tonsillectomy Current Outpatient Medications Medication Sig meloxicam (MOBIC) 15 mg tablet Take 1 tablet by mouth once daily. No current facility-administered medications for this visit. ALLERGIES No Known Allergies Social History Tobacco Use Smoking status: Never Smokeless tobacco: Never Vaping Use Vaping Use: Never used Substance Use Topics Alcohol use: Yes Alcohol/week: 17.5 standard drinks Types: 7 Mixed Drinks per week Comment: One glass each Evening Drug use: No ROS: See HPI PE: BP 136/84 Pulse 64 Temp (Src) 97.9 (Left Tympanic) Resp 16 Wt 195 lb (88.5kg) LMP 11/21/2017 Gen: A&OX3, NAD, non-toxic appearing HEENT: PERRLA, EOMs intact b/l, nares without drainage, pharynx without erythema, exudate, lesions, or drainage. Uvula midline. Neck: No LAD, no thyromegaly, no meningismus. Skin: No rashes, lesions, or wounds on exposed skin. Mild swelling and pain right knee medical meniscus and joint area as well as distal femur medially Reduced ROM lumbar spine ASSESSMENT/PLAN: 1. Bilateral hip pain - ICD9: 719.45, ICD10: M25.551, M25.552 (primary diagnosis) Xray as ordered, consider PHYSICAL THERAPY as well - XR HIP BILATERAL 5V PEL/AP/LAT EACH HIP 2. Foot pain, bilateral - ICD9: 729.5, ICD10: M79.671, M79.672 Xray as ordered, consider PHYSICAL THERAPY as well - XR FOOT GENERAL 3V AP/LAT/OBL BILATERAL 3. 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) - ICD9: 733.49, ICD10: M87.88 Xray as ordered, consider PHYSICAL THERAPY as well - CONSULT TO ORTHOPAEDICS 4. Dyslipidemia - ICD9: 272.4, ICD10: E78.5 - to be determined upon return of lab results - Encouraged following a low fat, low cholesterol diet. - Discussed the benefits of regular aerobic exercise and weight loss. - COMP METABOLIC PANEL - CBC + DIFF - LIPID PANEL BASIC - HGB A1C 5. Medial knee pain, right - ICD9: 719.46, ICD10: M25.561 Xray as ordered, consider PHYSICAL THERAPY as well - XR HIP BILATERAL 5V PEL/AP/LAT EACH HIP - CONSULT TO ORTHOPAEDICS 6. Well adult exam - ICD9: V70.0, ICD10: Z00.00 - Counseled on healthy diet and regular exercise - Calcium intake with supplements or by diet of 1000 mg/day for under 50, 7020-9192 mg/day for 50+ - COMP METABOLIC PANEL - CBC + DIFF - LIPID PANEL BASIC - HGB A1C - VITAMIN D 25 HYDROXY - VITAMIN B12 BLOOD - TSH BLD - T4 FREE/FREE THYROX 7. Chronic midline low back pain without sciatica - ICD9: 724.2, 338.29, ICD10: M54.50, G89.29 Xray as ordered, consider PHYSICAL THERAPY as well - XR LUMBAR GENERAL 3V AP/LAT/L5-S1 8. Screening for osteoporosis - ICD9: V82.81, ICD10: Z13.820 - DXA-AXIAL SKELETON 9. Post-menopausal - ICD9: V49.81, ICD10: Z78.0 - DXA-AXIAL SKELETON Rajan Malone DO Return if no improvement. Follow up with Rajan Malone DO. To ER if develops chest pain, shortness of breath, Discussed risks, benefits, alternatives, and potential side effects of medications. Patient/Guardian expressed understanding and agreed with the plan. See patient instructions. Rajan Malone DO [address] [place] [address] documented in this encounter [facility] 01-11-2022 Instructions Rajan Malone DO - 01/11/2022 4:[address] Sharon Walton documented in this encounter [facility] 11-09-2021 History of Present illness Narrative SELF Ms. Dinh is a 56 year old female that presents today complaining of knee problems on the right side for the last 3 weeks. She claims that this pain appears to be related to an injury at home when she slipped on water in the kitchen twisting her knee and falling.. The pain is described as constant located along the inside aspect of the knee. Patient states that her pain level is a number 5 on a scale of 1-10 She has been taking Voltaren for symptom relief with improvement. She reports that she has had swelling of the knee as well as pain with ambulation, but denies mechanical locking clicking or giving way ALLERGIES: Patient has no known allergies. MEDICAL HISTORY: PAST MEDICAL HISTORY Diagnosis Date Hypercholesteremia 03/2014 Plantar fasciitis Solitary cyst of breast left >right breast, benign SURGICAL HISTORY: PAST SURGICAL HISTORY Procedure Laterality Date ADENOIDECTOMY PRIMARY <AGE 12 Adenoidectomy COLONOSCOPY FLX DX W/COLLJ SPEC WHEN PFRMD 3-2-15 TONSILLECTOMY PRIMARY/SECONDARY <AGE 12 Tonsillectomy FAMILY HISTORY: FAMILY HISTORY Problem Relation Age of Onset Hearing Loss Mother Hypertension Mother Breast Cancer Mother DCIS Colon Cancer Maternal Grandmother great Cancer Maternal Grandmother bone Cancer Maternal Aunt lung Cancer Maternal Uncle esophageal Cancer Other cousin Psychiatry Sister Breast Cancer Maternal Aunt PHYSICAL ASSESSMENT: The Pt walks with a limping gait B/l LE have Nl Alignment Right Knee Reveals 1-2 Effusion. 0-135 degrees of motion. No Abnormal Anterior, Posterior, Varus or Valgus Laxity. There is Medial or Joint Line Tenderness. No pain with Direct Palpation over the Distal Medial or Lateral Femoral Condyles. Medial pain with Cortney's Test and Thessaly test. No pain with Patellar compression. RADIOGRAPH:no acute abnormality or degenerative changes ASSESSMENT: Right medial knee pain, suspect meniscus injury PLAN: Discussed options for treatment including further imaging, conservative management versus surgical referral. Stephany would like to proceed with corticosteroid injection today followed by compression wrap and activity modification. Risks, benefits, alternatives and personnel discussed with patient who consents to proceed. Patient wished to proceed. 6mg celestone with 4cc, 1% lidocaine and 4cc .5% marcaine was injected. Injection was carried out under sterile conditions through a LATERAL PARAPATELLAR site into the knee joint. Patient had no immediate complications and tolerated the procedure well. VIK wrap applied. Follow up if symptoms continue or if mechanical symptoms develop. Kevin Mccullough DO AMB ROOMING INTAKE FLOWSHEET DATA Risk Screening Do you have concerns about personal safety or safety in the home?: No Pain Pain Level: 5 (as high as 7) Pain Location: Knee-Right Description: Sharp, Radiating Duration Amount of Time: 3 Duration Units: Weeks Frequency: Continuous Intervention/Comfort measure: Cold documented in this encounter [facility] Evaluation note Diagnosis Medial knee pain, right- Primary [facility] Medial [facility], right- Primary [facility] Encounter for screening mammogram for breast cancer [facility] noteNo assessment information availableWElyria [facility] Work Phone: Evaluation note* Diagnosis Bilateral hip pain- Primary Pain in joint, pelvic region and thigh Foot pain, bilateral Pain in limb 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) Dyslipidemia Other and unspecified hyperlipidemia Medial knee pain, right Well adult exam Routine general medical examination at a health care facility Chronic midline low back pain without sciatica Screening for osteoporosis Special screening for osteoporosis Post-menopausal Asymptomatic postmenopausal status (age-related) (natural) documented in this encounter [facility] note* Diagnosis Medial knee pain, right- Primary documented in this encounter [facility] note* Diagnosis 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) Medial knee pain, right documented in this encounter [facility] note* Diagnosis Onset Date Resolution Status Cyst of left breast acute [facility] Work Phone: Evaluation note* Diagnosis Encounter for screening mammogram for breast cancer documented in this encounter [facility] note* Diagnosis Hypertension, essential- Primary Unspecified essential hypertension Screening for diabetes mellitus Encounter for lipid screening for cardiovascular disease Screening for lipoid disorders Overweight (BMI 25.0-29.9) Overweight documented in this encounter [facility] note* Diagnosis Well adult exam- Primary Routine general medical examination at a health care facility Screening for colon cancer Special screening for malignant neoplasms, colon Elevated BP without diagnosis of hypertension Chronic pain of right knee 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) Heterogeneously dense tissue of both breasts on mammography Dyslipidemia Other and unspecified hyperlipidemia documented in this encounter [facility] for referral (narrative)* Diagnostic Procedure Only (Routine) - Pending Review Specialty Diagnoses / Procedures Referred By Bhavya garcia Referred To Contact [facility] Diagnoses Encounter for screening mammogram for breast cancer Procedures ADEEL SCREENING SCREENING MAMMOGRAPHY BI 2-VIEW BREAST INC CAD Rajan Malone DO [address] [place] [address] [facility] [address] [place] [address] Referral ID Status Reason Start Date Expiration Date Visits Requested Visits Authorized [id number] Pending Review Auto-Generat ed Referral 12/07/2021 01/06/2023 1 1 [facility] for referral (narrative)* Diagnostic Procedure Only (Routine) - Pending Review Specialty Diagnoses / Procedures Referred By Bhavya garcia Referred To Contact XR IMAGING Diagnoses Medial knee pain, right Procedures XR KNEE LIMITED 2V AP/LAT RIGHT RADIOLOGIC EXAMINATION KNEE 1/2 VIEWS Rajan Malone DO [address] [place] [address] Xr Imaging Referral ID Status Reason Start Date Expiration Date Visits Requested Visits Authorized [id number] Pending Review Auto-Generat ed Referral 02/15/2022 03/17/2023 1 1 [facility] for referral (narrative)* Diagnostic Procedure Only (Routine) - Pending Review Specialty Diagnoses / Procedures Referred By Contac t Referred To Contact [facility] Diagnoses Encounter for screening mammogram for breast cancer Procedures ADEEL SCREENING SCREENING MAMMOGRAPHY BI 2-VIEW BREAST INC Rajan Simon, DO [address] [place] [address] [facility] [address] [place] [address] Referral ID Status Reason Start Date Expiration Date Visits Requested Visits Authorized [id number] Pending Review Auto-Generat ed Referral 11/15/2022 12/15/2023 1 1 T [facility] for referral (narrative)* Diagnostic Procedure Only (Routine) - New Request Specialty Diagnoses / Procedures Referred By Contac t Referred To Contact [facility] Diagnoses Encounter for screening mammogram for breast cancer Procedures ADEEL SCREENING W FRANKY SCREENING DIGITAL BREAST TOMOSYNTHESIS BI SCREENING MAMMOGRAPHY BI 2-VIEW BREAST INC CAD Rajan Malone, DO [address] [place] [address] [facility] [address] [place] [address] Referral ID Status Reason Start Date Expiration Date Visits Requested Visits Authorized [id number] New Request Auto-Generat ed Referral 11/07/2023 12/06/2024 1 1 [facility] for referral (narrative)No reason for referral information availableWElyria Memorial Hospital Work Phone: Medications Administered Section Inactive Administered Medications - up to 3 most recent administrations Medication Order MAR Action Action Date Dose Rate Site betamethasone acetate-betamethasone sodium phosphate 6 mg injection (CELESTONE) 6 mg, OTHER, ONCE, 1 dose, On Sun11/09/21 at 1600, Intra-Articular Protect From Light. Given 11/09/2021 3:32 PM EDT 6 mg Reason for Referral Specialty Diagnoses / Procedures Referred By Contac t Referred To Contact MR IMAGING Diagnoses Medial knee pain, right Procedures MRI KNEE WO IVCON RT MRI ANY JT LOWER EXTREM W/O CONTRAST Kevin Herring V, DO [address] [place] [address] Mr [facility] Referral ID Status Reason Start Date Expiration Date Visits Requested Visits Authorized [id number] Pending Review Auto-Generat ed Referral 11/19/2021 12/19/2022 1 1 Specialty Diagnoses / Procedures Referred By Contac t Referred To Contact Orthopedics Diagnoses 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) Medial knee pain, right Procedures CONSULT TO ORTHOPAEDICS OFFICE/OUTPATIENT [facility] 60-74 MINUTES Rajan Malone, DO [address] [place] [address] Referral ID Status Reason Start Date Expiration Date Visits Requested Visits Authorized [id number] Authorized PCP Requested Referral 01/11/2022 01/11/2023 1 1 Specialty Diagnoses / Procedures Referred By Contac t Referred To Contact XR IMAGING Diagnoses Chronic midline low back pain without sciatica Procedures XR LUMBAR GENERAL 3V AP/LAT/L5-S1 RADEX SPINE LUMBOSACRAL 2/3 VIEWS Rajan Malone, DO [address] [place] [address] Xr Imaging Referral ID Status Reason Start Date Expiration Date Visits Requested Visits Authorized [id number] Pending Review Auto-Generat ed Referral 01/11/2022 02/10/2023 1 1 Specialty Diagnoses / Procedures Referred By Contac t Referred To Contact XR IMAGING Diagnoses Bilateral hip pain Medial knee pain, right Procedures XR HIP BILATERAL 5V PEL/AP/LAT EACH HIP RADEX HIPS BILATERAL WITH PELVIS MINIMUM 5 VIEWS Rajan Malone, DO [address] [place] [address] Xr Imaging Referral ID Status Reason Start Date Expiration Date Visits Requested Visits Authorized [id number] Pending Review Auto-Generat ed Referral 01/11/2022 02/10/2023 1 1 Specialty Diagnoses / Procedures Referred By Contac t Referred To Contact XR IMAGING Diagnoses Foot pain, bilateral Procedures XR FOOT GENERAL 3V AP/LAT/OBL BILATERAL RADEX FOOT COMPLETE MINIMUM 3 VIEWS Rajan Malone L, DO [address] [place] [address] Xr Imaging Referral ID Status Reason Start Date Expiration Date Visits Requested Visits Authorized [id number] Pending Review Auto-Generat ed Referral 01/11/2022 02/10/2023 1 1 Specialty Diagnoses / Procedures Referred By Contact Referred To Contact [facility] Diagnoses 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) Medial knee pain, right Procedures CONSULT TO PHYSICAL THERAPY PHYSICAL THERAPY EVALUATION HIGH COMPLEX 45 MINS Claudia Walton MD [address] [place] [address] [facility] [address] [place] [address] Referral ID Status Reason Start Date Expiration Date Visits Requested Visits Authorized [id number] Pending Review Auto-Generat ed Referral 02/17/2022 02/17/2023 1 1 Chief Complaint and Reason for Visit Chief Complaint MEDIAL KNEE PAIN R Chief Complaint MEDIAL KNEE PAIN R SCREENING ABNORMAL MAMMO Chief Complaint MEDIAL KNEE PAIN R SCREENING ABNORMAL MAMMO L BREAST CYST Reason for Visit Cyst of left breast Chief Complaint Admit Date screen for breast cancer June 13, 2024 10:57am Family History No Family History Records Found Relationship Condition Age at Onset Recorded Date/T david mother Malignant neoplasm of breast Unknown Hypertension Unknown Advance Directives No Advanced Directives Records Found Advance Directive Response Recorded Date/ Time Advance Directives No February 15, 2018 10:43am Living Will No February 15 10:43am Power of Cook Helper Vegetable No February 15, 2018 10:43am Advance Directive Response Recorded Date/ Time Advance Directives No February 15, 2018 9:43am Living Will No February 15 9:43am Power of Cook Helper Vegetable No February 15, 2018 9:43am Advance Directive Response Recorded Date/ Time Advance Directives No February 15, 2018 10:43am Summary Purpose Additional Source Comments Source Comments (unrecognize d section and content) In the event this informatio n is protected by the Federal Confidentiality of Alcohol and Drug Abuse Patient Records regulations: The Federal rules restrict any use of the information to criminally investigate or prosecute any alcohol or drug abuse patient.[facility] the event this information is protected by the Federal Confidentiality of Alcohol and Drug Abuse Patient Records regulations: The Federal rules restrict any use of the information to criminally investigate or prosecute any alcohol or drug abuse patient.[facility] HospitalIn the event this information is protected by the Federal Confidentiality of Alcohol and Drug Abuse Patient Records regulations: The Federal rules restrict any use of the information to criminally investigate or prosecute any alcohol or drug abuse patient.[facility]In the event this information is protected by the Federal Confidentiality of Alcohol and Drug Abuse Patient Records regulations: The Federal rules restrict any use of the information to criminally investigate or prosecute any alcohol or drug abuse patient.[facility] HospitalIn the event this information is protected by the Federal Confidentiality of Alcohol and Drug Abuse Patient Records regulations: The Federal rules restrict any use of the information to criminally investigate or prosecute any alcohol or drug abuse patient.[facility] HospitalIn the event this information is protected by the Federal Confidentiality of Alcohol and Drug Abuse Patient Records regulations: The Federal rules restrict any use of the information to criminally investigate or prosecute any alcohol or drug abuse patient.[facility] the event this information is protected by the Federal Confidentiality of Alcohol and Drug Abuse Patient Records regulations: The Federal rules restrict any use of the information to criminally investigate or prosecute any alcohol or drug abuse patient.[facility]In the event this information is protected by the Federal Confidentiality of Alcohol and Drug Abuse Patient Records regulations: The Federal rules restrict any use of the information to criminally investigate or prosecute any alcohol or drug abuse patient.[facility] the event this information is protected by the Federal Confidentiality of Alcohol and Drug Abuse Patient Records regulations: The Federal rules restrict any use of the information to criminally investigate or prosecute any alcohol or drug abuse patient.[facility]In the event this information is protected by the Federal Confidentiality of Alcohol and Drug Abuse Patient Records regulations: The Federal rules restrict any use of the information to criminally investigate or prosecute any alcohol or drug abuse patient.[facility] the event this information is protected by the Federal Confidentiality of Alcohol and Drug Abuse Patient Records regulations: The Federal rules restrict any use of the information to criminally investigate or prosecute any alcohol or drug abuse patient.[facility] the event this information is protected by the Federal Confidentiality of Alcohol and Drug Abuse Patient Records regulations: The Federal rules restrict any use of the information to criminally investigate or prosecute any alcohol or drug abuse patient.[facility]In the event this information is protected by the Federal Confidentiality of Alcohol and Drug Abuse Patient Records regulations: The Federal rules restrict any use of the information to criminally investigate or prosecute any alcohol or drug abuse patient.[facility] the event this information is protected by the Federal Confidentiality of Alcohol and Drug Abuse Patient Records regulations: The Federal rules restrict any use of the information to criminally investigate or prosecute any alcohol or drug abuse patient.[facility] the event this information is protected by the Federal Confidentiality of Alcohol and Drug Abuse Patient Records regulations: The Federal rules restrict any use of the information to criminally investigate or prosecute any alcohol or drug abuse patient.[facility] HospitalIn the event this information is protected by the Federal Confidentiality of Alcohol and Drug Abuse Patient Records regulations: The Federal rules restrict any use of the information to criminally investigate or prosecute any alcohol or drug abuse patient.[facility] HospitalIn the event this information is protected by the Federal Confidentiality of Alcohol and Drug Abuse Patient Records regulations: The Federal rules restrict any use of the information to criminally investigate or prosecute any alcohol or drug abuse patient.[facility] HospitalIn the event this information is protected by the Federal Confidentiality of Alcohol and Drug Abuse Patient Records regulations: The Federal rules restrict any use of the information to criminally investigate or prosecute any alcohol or drug abuse patient.[facility] Reason for Visit (unrecogniz ed section and content) Reason Comments Right Knee Pain Reason Comments Follow Up Reason Comments Outside Labs-[facility] Ordered Reason Comments outside imaging Reason Comments Orders Reason Comments New Knee Pain Specialty Diagnoses / Procedures Referred By Contac t Referred To Contact Orthopedics Diagnoses 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) Medial knee pain, right Procedures CONSULT TO ORTHOPAEDICS OFFICE/OUTPATIENT NEW HIGH MDM 60-74 MINUTES Rajan Malone, DO [address] [place] [address] Referral ID Status Reason Start Date Expiration Date V isits Requested Visits Authorized [id number] Closed PCP Requested Referral 01/11/2022 01/11/2023 1 1 Reason Comments Hypertension Reason Comments Blood Pressure Reason Onset Date Comments Results 09/22/2024 Reason Comments Yearly Exam Care Teams (unrecognized sec tion and content) Machine Staker Relationship Specialty Start Date End Date Rajan Malone, DO [address] [place] [address] PCP - General Family Practice 03/17/14 Machine Staker Relationship Specialty Start Date End Date Rajan Malone, DO [address] [place] [address] PCP - General Family Practice 03/17/14 Machine Staker Relationship Specialty Start Date End Date Rajan Malone, DO [address] [place] [address] PCP - General Family Medicine 03/17/14 Machine Staker Relationship Specialty Start Date End Date Rajan Malone, DO [address] [place] [address] PCP - General Family Medicine 03/17/14 Machine Staker Relationship Specialty Start Date End Date Rajan Malone, DO [address] [place] [address] PCP - General Family Medicine 03/17/14 Machine Staker Relationship Specialty Start Date End Date Rajan Malone, DO [address] [place] [address] PCP - General Family Medicine 03/17/14 Machine Staker Relationship Specialty Start Date End Date Rajan Malone, DO [address] [place] [address] PCP - General Family Medicine 03/17/14 Machine Staker Relationship Specialty Start Date End Date Rajan Malone, DO [address] [place] [address] PCP - General Family Medicine 03/17/14 Machine Staker Relationship Specialty Start Date End Date Rajan Malone DO [address] [place], [place] [address] PCP - General Family Medicine 03/17/14 Team Status: Active Member Role Status Dates Dr. Rajan Malone DO Primary Care Provider Active Team Status: Inactive Member Role Status Dates Dr. Rajan Malone DO Primary Care Provider Active Start: June 13, 2024 End: June 13, 2024 DANIEL Dwyer Attending Provider Active Start: June 13, 2024 End: June 13, 2024 DANIEL Dwyer Referring Provider Active Start: June 13, 2024 End: June 13, 2024 Machine Staker Relationship Specialty Start Date End Date Rajan Malone DO [address] [place] [address] PCP - General Family Medicine 03/17/14 Elke Fierro, SHOVEL LOGGER.COMMERCIAL CENSUS TAKER [address] [place] [address] Audiovisual Equipment Operator Family [facility] 02/17/24 Praveena Berry, SHOVEL LOGGER.COMMERCIAL CENSUS TAKER [address] [facility] [place] [address] Audiovisual Equipment Operator Family Medicine 08/25/24 Machine Staker Relationship Specialty Start Date End Date Rajan Malone DO [address] [place] [address] PCP - General Family Medicine 03/17/14 Elke Fierro, SHOVEL LOGGER.COMMERCIAL CENSUS TAKER [address] [place] [address] Audiovisual Equipment Operator Family Medicine 02/17/24 Praveena Berry, SHOVEL LOGGER.COMMERCIAL CENSUS TAKER [address] [place] [address] Audiovisual Equipment Operator Family Medicine 08/25/24 Machine Staker Relationship Specialty Start Date End Date Rajan Malone DO [address] [place] [address] PCP - General Family Medicine 03/17/14 Elke Fierro, SHOVEL LOGGER.COMMERCIAL CENSUS TAKER [address] [place] [address] Audiovisual Equipment Operator Family Medicine 02/17/24 Praveena Berry APRN.COMMERCIAL CENSUS TAKER [address] [place] [address] [facility]ovisual [facility] 08/25/24 Machine Staker Relationship Specialty Start Date End Date Rajan Malone DO [address] [place] [address] PCP - General Family Medicine 03/17/14 Elke Fierro, SHOVEL LOGGER.COMMERCIAL CENSUS TAKER [address] [place] [address] Audiovisual Equipment Operator Family Medicine 02/17/24 Praveena Berry APRN.COMMERCIAL CENSUS TAKER [address] [place] [address] Audiovisual Equipment Operator Family Medicine 08/25/24 Machine Staker Relationship Specialty Start Date End Date Rajan Malone DO [address] [place] [address] PCP - General Family Medicine 03/17/14 Elke Fierro, SHOVEL LOGGER.COMMERCIAL CENSUS TAKER [address] [place] [address] [facility] 02/17/24 Praveena Berry, ELIAS.COMMERCIAL CENSUS TAKER [address] [place], [place] [address] [facility] 08/25/24 Machine Staker Relationship Specialty Start Date End Date Rajan Malone DO [address] [place], [place] [address] PCP - General Family Medicine 03/17/14 Elke Fierro APRN.COMMERCIAL CENSUS TAKER [address] [place], [place] [address] [facility] 02/17/24 Praveena Berry, SHOVEL LOGGER.COMMERCIAL CENSUS TAKER [address] [place], [place] [id number] [facility] 08/25/24 Goals (unrecognized section and content) Goals may be documented in a n alternate sectionGoals may be documented in an alternate sectionGoals may be documented in an alternate sectionGoals may be documented in an alternate sectionGoals may be documented in an alternate section INFORMATION SOURCE (unrecogn ized section and content) DATE CREATED AUTHOR 11/03/2024 [facility] DATE CREATED AUTHOR AUTHOR'S CONNOR GORDON 11/11/2024 [facility] FOR RECORDS PERTAINING TO PATIENTS WHO ARE OR HAVE BEEN ENROLLED IN A CHEMICAL DEPENDENCY/SUBSTANCEABUSE PROGRAM, SOME INFORMATION MAY BE OMITTED. This clinical summary was aggregated from multiple sources. Caution should be exercised in using it in the provision of clinical care. This summary normalizes information from multiple sources, and as a consequence, information in this document may materially change the coding, format and clinical context of patient data. In addition, data may be omitted in some cases. CLINICAL DECISIONS SHOULD BE BASED ON THE PRIMARY CLINICAL RECORDS. [employer] provides no warranty or guarantee of the accuracy or completeness of information in this document.
--- NOTE | 2024-11-26 19:07 | CA.SCORE ---
Calcium Scoring Date of Study:: 11/12/24 Indications Indications: Hypertension Coronary Calcium Scoring: High-resolution Computed Tomographic imaging of the chest was performed on [11/12/2024], with particular attention paid to the coronary arteries. Images from the examination were analyzed for the presence and extent of coronary artery calcification , using coronary calcium quantification software. The patient tolerated the procedure well and there were no complications. The results of the coronary calcification analysis are provided below. Findings Coronary Artery Left Main (LM): 0 Left Anterior Descending (LAD): 0 Left Circumflex (LCX): 0 Right Coronary Artery (RCA): 0 Total Agatston Score: 0 Percentile Rankin% Calcium Scoring Interpretation: Different methods to categorize the overall amount of coronary plaque. Overall amount CAC SIS Visual of coronary plaque P1 Mild -100 <2 1-2 vessels with mild amount of plaque P2 Moderate 101-300 3-4 1-2 vessels with moderate amount, 3 vessels with mild amount of plaque P3 Severe 301-999 5-7 3 vessels with moderate amount, 1 vessel with severe amount of plaque P4 Extensive >1000 >8 2-3 vessels with severe amount of plaque Conclusion: No significant plaquing noted
== END | disposition home or self-care (01) ==
PROVIDERS: PCP Student in an Organized Health Care Education/Training Program; Referring Provider Nurse Practitioner Primary Care; Visit Provider Nurse Practitioner Primary Care
DX: Z13.6 Encounter for screening for cardiovascular disorders (principal); R03.0 Elevated blood-pressure reading, without diagnosis of hypertension; R42 Dizziness and giddiness; E78.5 Hyperlipidemia, unspecified
CPT/HCPCS: 75571; 76380

== ENCOUNTER → 2024-11-28 | Outpatient (CLI) | payer OTHER, SELFPAY ==
--- NOTE | 2024-11-28 08:03 | CDU_ITS ---
Reason For Study Reason For Study: Elevated BP Rt. Velocities/BP Lt. Velocities/BP Prox CCA 85.1/21.2 cm/sec. Prox CCA 99.7/26.7 cm/sec. Mid CCA 76.8/28.6 cm/sec. Mid CCA 84.2/24.8 cm/sec. Dist CCA 83.4/29.6 cm/sec. Dist CCA 73.2/22.6 cm/sec. Prox ICA 57.0/20.1 cm/sec. Prox ICA 75.4/25.9 cm/sec. Mid ICA 57.9/23.9 cm/sec. Mid ICA 68.8/27.0 cm/sec. Dist ICA 70.2/32.4 cm/sec. Dist ICA 79.8/35.8 cm/sec. Rt. ICA/CCA = 0.9. Lt. ICA/CCA = 0.9. Prox ECA 75.9/17.3 cm/sec. Prox ECA 90.0/19.2 cm/sec. Rt. Vert. 42.2/15.2 cm/sec. Lt. Vert. 42.1/14.7 cm/sec. Right Extracranial There is intimal thickening but no significant atherosclerotic plaque noted in the right common carotid artery. There is intimal thickening but no significant atherosclerotic plaque noted in the right internal carotid artery. There is intimal thickening but no significant atherosclerotic plaque noted in the right external carotid artery. Antegrade flow is noted in the right vertebral artery. Left Extracranial There is intimal thickening but no significant atherosclerotic plaque noted in the left common carotid artery. There is intimal thickening but no significant atherosclerotic plaque noted in the left internal carotid artery. There is intimal thickening but no significant atherosclerotic plaque noted in the left external carotid artery. Antegrade flow is noted in the left vertebral artery. Procedure Carotid Duplex 53222. This is a Carotid Duplex examination using B-mode, color flow and specral Doppler. The exam was diagnostic. Exam performed in department. VL/Carotid Duplex Ultrasound Interpretation Summary Normal right extracranial internal carotid. Normal left extracranial internal carotid. Patent and antegrade vertebrals bilaterally. Ordering Physician: Rajan Andrew Referring Physician: Rajan Andrew Performed By: Elijah Kelsey RVT
--- NOTE | 2024-11-28 08:03 | RDU_ITS ---
Reason For Study Reason For Study: ElevatedBP Right Renal Artery Left Renal Artery Right renal artery ostium 127.7/34.5 Left renal artery ostium 98.4/36.3 RSV/EDV. PSV/EDV. Right renal artery proximal 141.7/44.9 Left renal artery proximal PSV/EDV PSV/EDV. 109.4/30.9 . Right renal artery mid 116.6/38.0 Left renal artery mid 116.7/30.9 PSV/EDV. PSV/EDV . Right renal artery distal 128.4/38.0 Left renal artery distal 105.7/32.7 PSV/EDV. PSV/EDV. Right RAR 1.49. Left RAR 1.23. Right Renal Parenchyma Left Renal Parenchyma Upper Pole Medula 36.7/12.1 PSV/EDV. Left upper pole medulla 40.4/13.9 Right upper pole medulla EDR 0.30 . PSV/EDV . Right upper pole medulla R.I. 0.67 . Left upper pole medulla EDR 0.30 . Upper Geo Cortx 21.4/6.7 PSV/EDV. Left upper pole medulla R.I. 0.66 . Right upper pole cortex EDR 0.30 . UP Cortex 17.1/6.2 PSV/EDV. Right upper pole cortex R.I. 0.69 . Left upper pole cortex EDR 0.40 . Right lower Pole medulla 17.6/6.2 Left upper pole cortex R.I. 0.64 . PSV/EDV . Left lower Pole medulla 40.9/13.0 Right lower pole medulla EDR 0.40 . PSV/EDV . Right lower pole medulla R.I. 0.65 . Left lower pole medulla EDR 0.30 . Lower Pole Cortex 19.5/6.7 PSV/EDV. Left lower pole medulla R.I. 0.68 . Right lower pole cortex EDR 0.30 . Lower Pole Cortx 29.1/9.3 PSV/EDV. Right lower pole cortex R.I. 0.66 . Left lower pole cortex EDR 0.30 . Right Renal Hilar Left lower pole cortex R.I. 0.68 . Right Hilar avg 41.2/18.0 PSV/EDV. Left Renal Hilar Right hilar acceleration time 10 m/sec. LT Hilar avg 130.8/57.7 PSV/EDV . Right Renal Dimensions Left hilar acceleration time 50 m/sec. Right kidney size 10.78 cm . Left Renal Dimensions Right cortical dimension 1.32 cm . Left kidney size 10.16 cm . Left cortical dimension 1.48 cm . Aorta Proximal abdominal aorta 2.08 x 2.08 cm . Proximal abdominal aorta peak systolic velocity is 70.2 cm/sec . Distal abdominal aorta 1.53 x 1.15 cm . Distal abdominal aorta peak systolic velocity is 94.8 cm/sec . VL/Renal Artery Duplex Ultrasound Interpretation Summary Right renal artery patent with normal velocities and no evidence of stenosis. Left renal artery patent with normal velocities and no evidence of stenosis. Right renal vein patent. Left renal vein patent. Right kidney normal in size. Left kidney normal in size. Ordering Physician: Rajan Andrew Referring Physician: Rajan Andrew Performed By: Elijah Kelsey RVT
--- OUTSIDE RECORDS SUMMARY | 2024-11-28 08:25 | XMS RPT_ITS | CCD ---
Author Organization [facility] Care Team Providers Care Internal Medicine Doctor Name Role Phone DIEGO Davila RN, Arlin Huang Unavailable Unavailgraciela Field LOCOMOTIVE OPERATOR, Breanna Gracia Unavailable Marjan Hunt Unavailable Unavailable Rajan Malone DO Primary Care Provider Rajan Malone DO Primary Care Provider Rajan Malone DO Primary Care Provider Dr. Rajan Malone Primary Care Provider Dr. Rajan Malone Referring Provider Dr. Jacinto Shaw Attending Provider Rajan Malone DO Primary Care Provider Dr. Rajan Malone DO Primary Care Provider [phone] Callie Swann Attending Provider Callie Swann Referring Provider Sri [employer]Elke HURLEY Unavailable Praveena Berry APRN.CNP Unavailable Prvaeena Berry Attending Unavailable Praveena Berry Referring Unavailable Rajan Malone Primary Care Unavailable Callie Alvarado Attending Unavailable Callie Alvarado Referring Unavailable Rajan Malone Primary Care Unavailable Rajan Malone Referring Unavailable Rajan Malone Primary Care Unavailable Rajan Malone Attending Unavailable Rajan Malone Primary Care Unavailable Praveena Berry Attending Unavailable Praveena Berry Referring Unavailable MaloneRajan Primary Care Unavailable Praveena Berry Attending Unavailable Praveena Berry Referring Unavailable Dickson Santillan Attending Unavailable Praveena Berry Referring Unavailable Praveena Berry Consulting Unavailable Malone, Rajan Primary Care Unavailable Callie Alvraado Attending Unavailable Malone, Rajan Referring Unavailable Malone, Rajan Primary Care Unavailable SELF Referring Unavailable PRAVEENA BERRY Attending Unavailable MALONE RAJAN L Primary Care Unavailable MALONE RAJAN L Primary Care Unavailable WILLIAM DRAKE Referring Unavailable MALONERAJAN L Primary Care Unavailable WILLIAM DRAKE Attending Unavailable RAJAN MALONE L Attending Unavailable RAJAN MALONE L Primary Care Unavailable PRAVEENA BERRY Referring Unavailable MALONERAJAN L Primary Care Unavailable Medications Current Medications Medication [...] mg oral tablet (1 source) Biguanide Start: 5 End: 5 take 1 tablet by mouth once daily [...] Comment on above: Take [address] [facility] twice daily. For pain/inflammation. Take with food. [...] Translations: [Menopausal and female climacteric states] Onset: 10-16-2024 01-12-2021 Chronic Miscellaneous mental health disorders (18 [...] musculoskeletal deformities (2 sources) Osteonecrosis, unspecified; Translations: [Osteonecrosis, unspecified] Onset: 10-16-2024 Chronic Other circulatory disease (3 sources) Elevated blood-pressure reading without diagnosis of hypertension; Translations: [Elevated blood-pressure reading, without diagnosis of hypertension] 10-29-2024 Episodic Other circulatory disease (2 sources) Elevated blood-pressure reading, without diagnosis of hypertension; Translations: [Elevated blood-pressure reading, without diagnosis of hypertension] Onset: 10-16-2024 Episodic Other connective tissue disease (1 source) [...] skin; Translations: [Tingling of both feet] Onset: 10-16-2024 Episodic Other non-traumatic joint disorders (11 sources) Pain in right knee; Translations: [Pain in joint, lower leg] Onset: 12-27-2021 Episodic Other non-traumatic joint disorders (1 source) Hip pain; Translations: [Pain in right hip] Episodic Other nutritional; endocrine; and metabolic disorders (2 sources) Hypercalcemia; Translations: [Hypercalcemia] Onset: 10-16-2024 Chronic Other screening for suspected conditions (not [...] Test Name Value Interpretation Reference Range Facility Coronary Angiography CTon Coronary Angiography [facility] Imaging Services [address] [place] [address] 11/26/24 1907 MR#: [id number] Acct: [id number] Name: STEPHANY DINH Rep #: [id number] : 1965 59 From: Dickson Santillan MD PCP: Dr. Rajan Malone, DO Status:REG CLI Y Location: CT Calcium Scoring Date of Study:: 11/12/24 Indications Indications: Hypertension Coronary Calcium Scoring: High-resolution Computed Tomographic imaging of the chest was performed on [11/12/2024], with particular attention paid to the coronary arteries. Images from the examination were analyzed for the presence and extent of coronary artery calcification , using coronary calcium quantification software. The patient tolerated the procedure well and there were no complications. The results of the coronary calcification analysis are provided below. Findings Coronary Artery Left Main (LM): 0 Left Anterior Descending (LAD): 0 Left Circumflex (LCX): 0 Right Coronary Artery (RCA): 0 Total Agatston Score: 0 Percentile Rankin% Calcium Scoring Interpretation: Different methods to categorize the overall amount of coronary plaque. Overall amount CAC SIS Visual of coronary plaque P1 Mild -100 <2 1-2 vessels with mild amount of plaque P2 Moderate 101-300 3-4 1-2 vessels with moderate amount, 3 vessels with mild amount of plaque P3 Severe 301-999 5-7 3 vessels with moderate amount, 1 vessel with severe amount of plaque P4 Extensive >1000 >8 2-3 vessels with severe amount of plaque Conclusion: No significant plaquing noted 11/26/24 190 Date Dickson Santillan MD Cosigner Signature (if applicable): Date CC: LOCOMOTIVE OPERATOR-C Praveena Berry; Dr. Dickson Santillan MD; Dr. Rajan Malone DO Signed Normal [facility] Limited Chest CT Cardiac Onl yon 11-12-[address] Cardiac Only [facility] Imaging Services [address] [place] [id number] Cardiac Only MR#: [id number] Acct: [id number] Name: STEPHANY DINH Rep #: [id number] : 1965 F 59 From: Ac norris MD PCP: Dr. Rajan Malone DO Status: [facility] Study: Limited Chest CT Cardiac Only Date of Exam: Exam# [id number] Ordering Dr: Praveena Berry PROCEDURE: LIMITED CHEST CT CARDIAC ONLY 11/12/2024 REASON FOR EXAM: CAD SCREENING, LOW CAD RISK TECHNIQUE: Procedure Code: CTCCTACHLIM Modality: CT Procedure: LIMITED CHEST CT CARDIAC ONLY CONTRAST: None One or more dose reduction techniques were used (e.g., Automated exposure control, adjustment of the mA and/or kV according to patient size, use of iterative reconstruction technique). RADIATION DOSE SUMMARY: CTDlvol: 12.19 mGy DLP: 219.48 mGycm COMPARISON: None FINDINGS: No significant coronary artery calcification is seen. The heart is nonenlarged. No evidence of pericardial effusion. The visualized portions of the lungs is unremarkable. CT/Limited Chest CT Cardiac Only IMPRESSION: No significant coronary artery calcification is seen. Reading Location: [place] [address] CC: DANIEL Berry; Dr. Rajan Malone DO Big Data Platform Architect: Signed Normal [facility] Dexa Bone Density Studyon Dexa Bone Density Study [facility] Imaging Services [address] [place] [address] [id number] Dexa Bone Density Study MR#: [id number] Acct: [id number] Name: STEPHANY DINH Rep #: [id number] : 1965 F 59 From: Ac norris MD PCP: Dr. Rajan Malone DO Status: REG CLI Study: Dexa Bone Density Study Date of Exam: 11/11/24 Exam# [id number] Ordering Dr: Praveena Berry PROCEDURE: DEXA BONE DENSITY STUDY 11/11/2024 REASON FOR EXAM: F, age 59 y/o . Postmenopausal. TECHNIQUE: Procedure Code: BDDBD Modality: DX Procedure: DEXA BONE DENSITY STUDY COMPARISON: January 19, 2022. FINDINGS: BMD and T-SCORES Lumbar spine: 1.122 g/cm2, T-score 0.7 Levels: L1 through L4 Change from prior: Loss of 1%. Left femoral neck: 0.774 g/cm2, T-score -0.7 Femoral neck comparison data not recommended for monitoring change. Left total hip: 0.862 g/cm2, T-score -0.7 Change from prior: Loss of 2.8%. Right femoral neck: 0.766 g/cm2, T-score -0.7 Femoral neck comparison data not recommended for monitoring change. Right total hip: 0.843 g/cm2, T-score -0.8 Change from prior: Improvement of 9.4%. The World Health Organization has defined the following categories based on bone density: Normal bone density: T-score equal to or greater than -1.0 Osteopenia: T-score between -1.0 and -2.5 Osteoporosis: T-score equal to or less than -2.5 FRAX (or Comparable) Fracture Risk Assessment: 10 Year Probability of Fracture: Major Osteoporotic Fracture: 6.5% Hip Fracture: 0.3% (Note: FRAX is not to be reported in setting of normal range bone density, osteoporosis on DEXA, known history of osteoporosis, prior osteoporotic hip or vertebral fracture, or for any patient undergoing pharmacological treatment for bone loss.) The National Osteoporosis Foundation (NOF) recommends pharmacological treatment for patients with a FRAX 10-year risk of 3% or higher for a hip fracture, or 20% or higher for a major osteoporotic fracture, to prevent osteoporosis and reduce fracture risk. The patient does not meet the pharmacological treatment recommendations for prevention of osteoporosis. BD/Dexa Bone Density Study IMPRESSION: NORMAL T-SCORES. Recommend follow-up as clinically warranted. Reading Location: [id number] CC: DANIEL Berry; Dr. Rajan Maolne DO Big Data Platform Architect: Signed Normal [facility] 10-31-2024 [facility] Telephone (FAMPWS) STEPHANY DINH ([id number]) 1965 F Date Time Provider Department 10/31/24 RAJAN MALONE During your visit today, we recorded the following information about you: Hellen Perez MA 10/31/2024 9:49 AM Signed See pt message We had discussed low dose Metformin to help with weight loss. Can we move forward with that? Allergies As of Date: 10/31/2024 (No Known Allergies) Date Reviewed: 10/17/2024 Reviewed by: Praveena Berry APRN.CASINO DUTY MANAGER - Fully Assessed Order(s):metFORMIN (GLUCOPHAGE) 500 mg tabletTake 1 tablet by mouth daily with breakfast.Disp: 30 tabletRfl: 2 Prescriptions as of 11/26/2024 - metFORMIN (GLUCOPHAGE) 500 mg tablet Take [...] Encounter Status:Closed by PRAVEENA BERRY on 10/31/24 [facility] Elvie 10-29-2024 CNOV Office Visit (FAMPWS ) STEPHANY DINH ([id number]) 1965 F Date Time Provider Department 10/29/24 [...] as previ (more content not included)... Normal [facility] 25(OH)D3 SerPl-ncon 2024 25-hydroxyvitamin D3 [Mass/Vol] 36.4 ng/mL Normal 31.0-80.0 [facility] Comment on above: Order Comment: Speci men Type: BLOOD SPECIMEN Ordering Facility: [facility] Address: [address] [place] [address] Result Comment: Clas sification of 25 OH Vitamin D status: Deficiency/Insufficiency: < or = 30 ng/ml. Sufficiency/Optimal Levels: 31-80 ng/mL Toxicity: > 100 ng/mL. Test performed by chemiluminescent immunoassay. Performed By: #### 1 989-3 #### [facility] CLIA [id number] [address] [place] [address] [place] Lipid 1996 panelon 5 Cholesterol [Mass/Vol] 215 mg/dL High <200 [facility] Comment on above: Order Comment: Brandoni men Type: BLOOD SPECIMEN Ordering Facility: [facility] Address: [address] [place] [address] Result Comment: <200 mg/dL, Desirable 200-239 mg/dL, Borderline high >239 mg/dL, High Performed By: #### 2 4331-1, 3051-0, 3024-7, 3016-3 #### [facility] CLIA [id number] [address] [place] [address] [place] Cholesterol in HDL [Mass/Vol] 87 mg/dL Normal >39 [facility] Comment on above: Order Comment: Speci men Type: BLOOD SPECIMEN Ordering Facility: [facility] Address: [address] [place] [address] Result Comment: 40-5 9 mg/dL, Acceptable >59 mg/dL, High: Negative risk factor for coronary heart disease <40 mg/dL, Low: Positive risk factor for coronary heart disease Performed By: #### 2 4331-1, 305-0, 3023-7, 6-3 #### [facility] CLIA [id number] [address] [place] [address] [place] Cholesterol in LDL [Mass/Vol] 108 mg/dL High <100 [facility] Comment on above: Order Comment: Speci men Type: BLOOD SPECIMEN Ordering Facility: [facility] Address: [address] [place] [address] Result Comment: <100 mg/dL, Optimal 100-129 mg/dL, Near optimal/above optimal 130-159 mg/dL, Borderline high 160-189 mg/dL, High >189 mg/dL, Very high Secondary prevention optimal LDL Cholesterol levels are recommended to be <70 mg/dL LDL cholesterol is calculated using the Kumar-NIH equation. Performed By: #### 2 4331-1, 3051-0, 3023-7, 6-3 #### [facility] CLIA [id number] [address] [place] [address] [place] Cholesterol in LDL/Cholesterol in HDL [Mass ratio] 1.24 {ratio} Normal <2.54 [facility] Comment on above: Order Comment: Speci men Type: BLOOD SPECIMEN Ordering Facility: [facility] Address: [address] [place] [address] Result Comment: Jocelyn betts: 1. National Cholesterol Education Program ATP III Guideline At-A-Glance Quick Desk Reference: National Heart, Lung, and Blood [place]. National Institutes of Health. 2001: NIH Publication No. 01-3305. 2. An International Atherosclerosis Society position paper: global recommendations for the management of dyslipidemia: executive summary, Atherosclerosis. 2014: 232(2):410-413. Performed By: #### 2 4331-1, 3051-0, 3024-7, 3016-3 #### [facility] CLIA [id number] [address] [place] [address] [place] Cholesterol in VLDL [Mass/Vol] 19 mg/dL Normal <30 [facility] Comment on above: Order Comment: Adriana fitzgerald Type: BLOOD SPECIMEN Ordering Facility: [facility] Address: [address] [place] [address] Performed By: #### 2 4331-1, 3051-0, 3024-7, 3016-3 #### [facility] CLIA [id number] [address] [place] [address] [place] Cholesterol non HDL [Mass/Vol] 128 mg/dL Normal <130 [facility] Comment on above: Order Comment: Adriana fitzgerald Type: BLOOD SPECIMEN Ordering Facility: [facility] Address: [address] [place] [address] Result Comment: <130 mg/dL, Optimal 130-159 mg/dL, Near optimal/above optimal 160-189 mg/dL, Borderline high 190-219 mg/dL, High >219 mg/dL, Very high Secondary prevention optimal non HDL Cholesterol levels are recommended to be <100 mg/dL Performed By: #### 2 4331-1, 3051-0, 3024-7, 3016-3 #### [facility] CLIA [id number] [address] [place] [address] [place] Cholesterol.total /Cholesterol in HDL [Mass ratio] 2.47 {ratio} Normal <5.10 [facility] Comment on above: Order Comment: Adriana fitzgerald Type: BLOOD SPECIMEN Ordering Facility: [facility] Address: [address] [place] [address] Performed By: #### 2 4331-1, 3051-0, 3024-7, 3016-3 #### [facility] CLIA [id number] [address] [place] [address] [place] FASTING TIME 10 hrs Normal [facility] Comment on above: Order Comment: Speci men Type: BLOOD SPECIMEN Ordering Facility: [facility] Address: [address] [place] [address] Performed By: #### 2 4331-1, 3051-0, 3024-7, 3016-3 #### [facility] CLIA [id number] [address] [place] [address] [place] Triglyceride [Mass/Vol] 115 mg/dL Normal <150 [facility] Comment on above: Order Comment: Speci men Type: BLOOD SPECIMEN Ordering Facility: [facility] Address: [address] [place] [address] Result Comment: <150 mg/dL, Normal 150-199 mg/dL, Borderline high 200-499 mg/dL, High >499 mg/dL, Very high Performed By: #### 2 4331-1, 3051-0, 3024-7, 3016-3 #### [facility] CLIA [id number] [address] [place] [address] [place] PTH-Intact SerPl-mCncon 08-0 Parathyrin.intact [Mass/Vol] 38 pg/mL Normal 15-65 [facility] Comment on above: Order Comment: Speci men Type: BLOOD SPECIMEN Ordering Facility: [facility] Address: [address] [place] [address] Performed By: #### 5 7021-8 #### [facility] CLIA [id number] [address] [place], [place] [address] [place] T3Free SerPl-mCncon 10-19-19 25 Free T3 [Mass/Vol] 3.2 pg/mL Normal 2.3-4.1 [facility] Comment on above: Order Comment: Speci men Type: BLOOD SPECIMEN Ordering Facility: [facility] Address: [address] [place] [address] Performed By: #### 2 4331-1, 3051-0, 3024-7, 3016-3 #### [facility] CLIA [id number] [address] [place] [address] [place] T4 Free SerPl-mCncon 025 Free T4 [Mass/Vol] 1.2 ng/dL Normal 0.9-1.7 [facility] Comment on above: Order Comment: Speci men Type: BLOOD SPECIMEN Ordering Facility: [facility] Address: [address] [place] [address] Performed By: #### 2 4331-1, 3051-0, 3024-7, 3016-3 #### [facility] CLIA [id number] [address] [place] [address] [place] TSH SerPl-aCncon 10-18-2024 TSH Qn 2.860 m[IU]/L Normal 0.270-4.200 [facility] Comment on above: Order Comment: Speci men Type: BLOOD SPECIMEN Ordering Facility: [facility] Address: [address] [place] [address] Performed By: #### 2 4331-1, 3051-0, 3024-7, 3016-3 #### [facility] CLIA [id number] [address] [place] [address] [place] VITAMIN B1 (THIAMINE), WHOLE BLOODon 10-18-2024 Thiamine (Bld) [Moles/Vol] 207.2 nmol/L Normal 84.3-213.3 [facility] Comment on above: Order Comment: Speci men Type: BLOOD SPECIMEN Ordering Facility: [facility] Address: [address] [place] [address] Result Comment: This assay measures the concentration of thiamine diphosphate (TDP), the primary active form of vitamin B1. Approximately 90 percent of vitamin B1 present in whole blood is TDP. Thiamine and thiamine monophosphate, which comprise the remaining 10 percent, are not measured. This test was developed, and its performance characteristics determined by the [facility] Department of Pathology and Laboratory Medicine. It has not been cleared or approved by the FDA. The [facility] Department of Pathology and Laboratory Medicine is regulated under CLIA as qualified to perform high-complexity testing. This test is used for clinical purposes. It should not be regarded as investigational or for research. Performed By: #### 5 7021-8 #### [facility] CLIA [id number] [address] [place] [address] [place] VITAMIN B6/PYRIDOXINon 10-18 VITAMIN B6 155.4 nmol/L High 20.0-125.0 [facility] Comment on above: Order Comment: Speci amilcar Type: BLOOD SPECIMEN Ordering Facility: [facility] Address: [address] [place] [address] Result Comment: INTE RPRETIVE INFORMATION: Vitamin B6 (Pyridoxal 5-Phosphate) Pyridoxal 5'-phosphate measured in a specimen collected following an 8-hour or overnight fast accurately indicates vitamin B6 nutritional status. Non-fasting specimen concentration reflects recent vitamin intake. This test was developed and its performance characteristics determined by [facility]. It has not been cleared or approved by the US Food and Drug Administration. This test was performed in a CLIA certified laboratory and is intended for clinical purposes. Performed By: [facility] [address] [place] [address] Gravedigger: Braeden Barrientos MD, PhD CLIA Number: [id number] Performed By: #### V ITB6 #### [facility] CLIA [id number] [address] [place] [address] Vit B12 SerPl-mCncon 025 Cobalamin (Vitamin B12) [Mass/Vol] 237 pg/mL Normal 232-1245 [facility] Comment on above: Order Comment: Speci men Type: BLOOD SPECIMEN Ordering Facility: [facility] Address: [address] [place] [address] Performed By: #### 5 7021-8 #### [facility] CLIA [id number] [address] [place] CNOVon 10-16-2024 CNOV Office Visit (FAMRajinderWS ) BRIANNESTEPHANY Huang ([id number]) 1965 F Date Time Provider Department 10/16/24 [...] ICD9: 278.02, ICD10: E66.3 -Stable William Drake APRN.CASINO DUTY MANAGER Note Details Instructions Return in about 2 [...] 40-59 mg/dL (more content not included)... Normal [facility] CBC W Auto Differential pane l (Bld)on 09-08-2024 Basophils (Bld) [#/Vol] 0.04 10*3/uL [facility] Basophils/100 WBC (Bld) 0.7 % [facility] Differential cell count method Nom (Bld) Auto [facility] Eosinophils (Bld) [#/Vol] 0.21 10*3/uL [facility] Eosinophils/100 WBC (Bld) 3.5 % [facility] Erythrocyte distribution width (RBC) [Ratio] 12.3 % 11.5 - 15.0 % [facility] Hematocrit (Bld) [Volume fraction] 44.9 % 36.0 - 46.0 % [facility] Hemoglobin (Bld) [Mass/Vol] 15.4 g/dL 11.5 - 15.5 g/dL [facility] Immature granulocytes (Bld) [#/Vol] [facility] Immature granulocytes/100 WBC (Bld) 0.3 % [facility] Lymphocytes (Bld) [#/Vol] 1.19 10*3/uL [facility] Lymphocytes/100 WBC (Bld) 20.1 % [facility] MCH (RBC) [Entitic mass] 32.8 pg 26.0 - 34.0 pg [facility] MCHC (RBC) [Mass/Vol] 34.3 g/dL 30.5 - 36.0 g/dL [facility] MCV (RBC) [Entitic vol] 95.5 fL 80.0 - 100.0 fL [facility] Monocytes (Bld) [#/Vol] 0.47 10*3/uL [facility]AN[facility] Monocytes/100 WBC (Bld) 7.9 % [facility] Neutrophils (Bld) [#/Vol] 4 10*3/uL [facility] Neutrophils/100 WBC (Bld) 67.5 % [facility] Nucleated RBC (Bld) [#/Vol] NINF [facility] Nucleated RBC/100 WBC (Bld) [Ratio] 0 % /100 WBC [facility] Platelet mean volume (Bld) [Entitic vol] 10.4 fL 9.0 - 12.7 fL [facility] Platelets (Bld) [#/Vol] 267 10*3/uL [facility] RBC (Bld) [#/Vol] 4.7 10*6/uL 3.90 - 5.2 0 m/uL [facility] WBC (Bld) [#/Vol] 5.93 10*3/uL [facility] Basophils (Bld) [#/Vol] 0.04 10*3/uL Normal <0.11 [facility] Comment on above: Order Comment: Speci men Type: BLOOD SPECIMEN Ordering Facility: [facility] Address: [address] [place] [address] Performed By: #### 5 7021-8 #### [facility] CLIA [id number] [address] [place] [address] [place] Basophils/100 WBC (Bld) 0.7 % Normal [facility] Comment on above: Order Comment: Speci men Type: BLOOD SPECIMEN Ordering Facility: [facility] Address: [address] [place] [address] Performed By: #### 5 7021-8 #### [facility] CLIA [id number] [address] [place] [address] [place] Differential cell count method Nom (Bld) Auto Normal [facility] Comment on above: Order Comment: Speci men Type: BLOOD SPECIMEN Ordering Facility: [facility] Address: [address] [place] [address] Performed By: #### 5 7021-8 #### [facility] CLIA [id number] [address] [place] [address] [place] Eosinophils (Bld) [#/Vol] 0.21 10*3/uL Normal <0.46 [facility] Comment on above: Order Comment: Speci men Type: BLOOD SPECIMEN Ordering Facility: [facility] Address: [address] [place] [address] Performed By: #### 5 7021-8 #### [facility] CLIA [id number] [address] [place] [address] [place] Eosinophils/100 WBC (Bld) 3.5 % Normal [facility] Comment on above: Order Comment: Speci men Type: BLOOD SPECIMEN Ordering Facility: [facility] Address: [address] [place] [address] Performed By: #### 5 7021-8 #### [facility] CLIA [id number] [address] [place] [address] [place] Erythrocyte distribution width (RBC) [Ratio] 12.3 % Normal 11.5-15.0 [facility] Comment on above: Order Comment: Speci men Type: BLOOD SPECIMEN Ordering Facility: [facility] Address: [address] [place] [address] Performed By: #### 5 7021-8 #### [facility] CLIA [id number] [address] [place] [address] [place] Hematocrit (Bld) [Volume fraction] 44.9 % Normal 36.0-46.0 [facility] Comment on above: Order Comment: Speci men Type: BLOOD SPECIMEN Ordering Facility: [facility] Address: [address] [place] [address] Performed By: #### 5 7021-8 #### [facility] CLIA [id number] [address] [place] [address] [place] Hemoglobin (Bld) [Mass/Vol] 15.4 g/dL Normal 11.5-15.5 [facility] Comment on above: Order Comment: Speci men Type: BLOOD SPECIMEN Ordering Facility: [facility] Address: [address] [place] [address] Performed By: #### 5 7021-8 #### [facility] CLIA [id number] [address] [place] [address] [place] Immature granulocytes (Bld) [#/Vol] 10*3/uL Normal <0.10 [facility] Comment on above: Order Comment: Speci men Type: BLOOD SPECIMEN Ordering Facility: [facility] Address: [address] [place] [address] Performed By: #### 5 7021-8 #### [facility] CLIA [id number] [address] [place] [address] [place] Immature granulocytes/100 WBC (Bld) 0.3 % Normal [facility] Comment on above: Order Comment: Speci men Type: BLOOD SPECIMEN Ordering Facility: [facility] Address: [address] [place] [address] Performed By: #### 5 7021-8 #### [facility] CLIA [id number] [address] [place] [address] [place] Lymphocytes (Bld) [#/Vol] 1.19 10*3/uL Normal 1.00-4.00 [facility] Comment on above: Order Comment: Speci men Type: BLOOD SPECIMEN Ordering Facility: [facility] Address: [address] [place] [address] Performed By: #### 5 7021-8 #### [facility] CLIA [id number] [address] [place] [address] [place] Lymphocytes/100 WBC (Bld) 20.1 % Normal [facility] Comment on above: Order Comment: Speci men Type: BLOOD SPECIMEN Ordering Facility: [facility] Address: [address] [place] [address] Performed By: #### 5 7021-8 #### [facility] CLIA [id number] [address] [place] [address] [place] MCH (RBC) [Entitic mass] 32.8 pg Normal 26.0-34.0 [facility] Comment on above: Order Comment: Speci men Type: BLOOD SPECIMEN Ordering Facility: [facility] Address: [address] [place] [address] Performed By: #### 5 7021-8 #### [facility] CLIA [id number] [address] [place] [address] [place] MCHC (RBC) [Mass/Vol] 34.3 g/dL Normal 30.5-36.0 [facility] Comment on above: Order Comment: Speci men Type: BLOOD SPECIMEN Ordering Facility: [facility] Address: [address] [place] [address] Performed By: #### 5 7021-8 #### [facility] CLIA [id number] [address] [place] [address] [place] MCV (RBC) [Entitic vol] 95.5 fL Normal 80.0-100.0 [facility] Comment on above: Order Comment: Speci men Type: BLOOD SPECIMEN Ordering Facility: [facility] Address: [address] [place] [address] Performed By: #### 5 7021-8 #### [facility] CLIA [id number] [address] [place] [address] [place] Monocytes (Bld) [#/Vol] 0.47 10*3/uL Normal <0.87 [facility] Comment on above: Order Comment: Speci men Type: BLOOD SPECIMEN Ordering Facility: [facility] Address: [address] [place] [address] Performed By: #### 5 7021-8 #### [facility] CLIA [id number] [address] [place] [address] [place] Monocytes/100 WBC (Bld) 7.9 % Normal [facility] Comment on above: Order Comment: Speci men Type: BLOOD SPECIMEN Ordering Facility: [facility] Address: [address] [place] [address] Performed By: #### 5 7021-8 #### [facility] CLIA [id number] [address] [place] [address] [place] Neutrophils (Bld) [#/Vol] 4.00 10*3/uL Normal 1.45-7.50 [facility] Comment on above: Order Comment: Speci men Type: BLOOD SPECIMEN Ordering Facility: [facility] Address: [address] [place] [address] Performed By: #### 5 7021-8 #### [facility] CLIA [id number] [address] [place] [address] [place] Neutrophils/100 WBC (Bld) 67.5 % Normal [facility] Comment on above: Order Comment: Speci men Type: BLOOD SPECIMEN Ordering Facility: [facility] Address: [address] [place] [address] Performed By: #### 5 7021-8 #### [facility] CLIA [id number] [address] [place] [address] [place] Nucleated RBC (Bld) [#/Vol] 10*3/uL Normal <0.01 [facility] Comment on above: Order Comment: Speci men Type: BLOOD SPECIMEN Ordering Facility: [facility] Address: [address] [place] [address] Performed By: #### 5 7021-8 #### [facility] CLIA [id number] [address] [place] [address] [place] Nucleated RBC/100 WBC (Bld) [Ratio] 0.0 /100 WBC Normal [facility] Comment on above: Order Comment: Speci men Type: BLOOD SPECIMEN Ordering Facility: [facility] Address: [address] [place] [address] Performed By: #### 5 7021-8 #### [facility] CLIA [id number] [address] [place] [address] [place] Platelet mean volume (Bld) [Entitic vol] 10.4 fL Normal 9.0-12.7 [facility] Comment on above: Order Comment: Speci men Type: BLOOD SPECIMEN Ordering Facility: [facility] Address: [address] [place] [address] Performed By: #### 5 7021-8 #### [facility] CLIA [id number] [address] [place] [address] [place] Platelets (Bld) [#/Vol] 267 10*3/uL Normal 150-400 [facility] Comment on above: Order Comment: Speci men Type: BLOOD SPECIMEN Ordering Facility: [facility] Address: [address] [place] [address] Performed By: #### 5 7021-8 #### [facility] CLIA [id number] [address] [place] [address] [place] RBC (Bld) [#/Vol] 4.70 10*6/uL Normal 3.90-5.20 [facility] Comment on above: Order Comment: Speci men Type: BLOOD SPECIMEN Ordering Facility: [facility] Address: [address] [place] [address] Performed By: #### 5 7021-8 #### [facility] CLIA [id number] [address] [place] [address] [place] WBC (Bld) [#/Vol] 5.93 10*3/uL Normal 3.70-11.00 [facility] Comment on above: Order Comment: Speci men Type: BLOOD SPECIMEN Ordering Facility: [facility] Address: [address] [place] [address] Performed By: #### 5 7021-8 #### [facility] DESIREEIA [id number] [address] [place] [address] [place] CNOVon 09-08-2024 CNOV Office Visit (AURAPWS ) STEPHANY DINH ([id number]) 1965 F Date Time Provider Department 09/08/24 10:40 AM WILLIAM DRAKE During your visit today, we recorded the following information about you: Pulse Blood pressure Weight 82/minute 150/75 84 kg William Drake APRN.[employer] 09/08/2024 11:53 AM Signed Chief Complaint Patient [...] ICD9: 278.02, ICD10: E66.3 -Stable William Drake APRN.[employer] Allergies As of Date: 09/08/2024 (No Known Allergies) Date Reviewed: 09/08/2024 Reviewed by: Arline Carl MA - Fully Assessed Reason for Visit: Blood Pressure [15] Primary Visit Diagnosis:Hypertension , essential [I10] Other Visit Diagnoses:Screening for diabetes mellitus [Z13.1] Encounter for lipid screening for cardiovascular disease [Z13.220, Z13.6] Overweight (BMI 25.0-29.9) [E66.3] Order(s):LIPID PANEL, NONFASTING [SQLIPNF] Order #: [id number] FUTURE COMPREHENSIVE METABOLIC PANEL [SQCMP] Order #: [id number] FUTURE COMPLETE BLOOD COUNT AND DIFFERENTIAL [SQCBCDIF] Order #: [id number] FUTURE HEMOGLOBIN A1C [JIAAW0I] Order #: [id number] FUTURE Prescriptions as of 09/08/2024 - meloxicam (MOBIC) 15 mg tablet Take 1 tablet by mouth once daily. Meds Comments as of (more content not included)... Normal [facility] Comprehensive metabolic 2000 panelon 09-08-2024 Albumin [Mass/Vol] 4.6 g/dL Normal 3.9-4.9 [facility] Comment on above: Order Comment: Speci men Type: BLOOD SPECIMEN Ordering Facility: [facility] Address: [address] [place] [address] Performed By: #### 5 7021-8 #### [facility] CLIA [id number] [address] [place] [address] [place] ALP [Catalytic activity/Vol] 48 U/L Normal 34-123 [facility] Comment on above: Order Comment: Speci men Type: BLOOD SPECIMEN Ordering Facility: [facility] Address: [address] [place] [address] Performed By: #### 5 7021-8 #### [facility] CLIA [id number] [address] [place], [place] [address] [place] ALT [Catalytic activity/Vol] 21 U/L Normal 7-38 [facility] Comment on above: Order Comment: Speci men Type: BLOOD SPECIMEN Ordering Facility: [facility] Address: [address] [place] [address] Performed By: #### 5 7021-8 #### [facility] CLIA [id number] [address] [place] [address] [place] Anion gap [Moles/Vol] 14 mmol/L Normal 8-15 [facility] Comment on above: Order Comment: Speci men Type: BLOOD SPECIMEN Ordering Facility: [facility] Address: [address] [place] [address] Performed By: #### 5 7021-8 #### [facility] CLIA [id number] [address] [place] [address] [place] AST [Catalytic activity/Vol] 29 U/L Normal 13-35 [facility] Comment on above: Order Comment: Speci men Type: BLOOD SPECIMEN Ordering Facility: [facility] Address: [address] [place] [address] Performed By: #### 5 7021-8 #### [facility] CLIA [id number] [address] [place] [address] [place] Bilirubin [Mass/Vol] 1.0 mg/dL Normal 0.2-1.3 [facility] Comment on above: Order Comment: Speci men Type: BLOOD SPECIMEN Ordering Facility: [facility] Address: [address] [place] [address] Performed By: #### 5 7021-8 #### [facility] CLIA [id number] [address] [place] [address] [place] Calcium [Mass/Vol] 10.2 mg/dL Normal 8.5-10.2 [facility] Comment on above: Order Comment: Speci men Type: BLOOD SPECIMEN Ordering Facility: [facility] Address: [address] [place], [place] [address] Performed By: #### 5 7021-8 #### [facility] CLIA [id number] [address] [place] [address] [place] Chloride [Moles/Vol] 99 mmol/L Normal 98-107 [facility] Comment on above: Order Comment: Speci men Type: BLOOD SPECIMEN Ordering Facility: [facility] Address: [address] [place] [address] Performed By: #### 5 7021-8 #### [facility] CLIA [id number] [address] [place] [address] [place] CO2 [Moles/Vol] 24 mmol/L Normal 22-30 [facility] Comment on above: Order Comment: Speci men Type: BLOOD SPECIMEN Ordering Facility: [facility] Address: [address] [place] [address] Performed By: #### 5 7021-8 #### [facility] CLIA [id number] [address] [place] [address] [place] Creatinine [Mass/Vol] 0.73 mg/dL Normal 0.58-0.96 [facility] Comment on above: Order Comment: Speci men Type: BLOOD SPECIMEN Ordering Facility: [facility] Address: [address] [place] [address] Performed By: #### 5 7021-8 #### [facility] CLIA [id number] [address] [place] [address] [place] Creatinine and Glomerular filtration rate.predicted panel (S/P/Bld) 95 mL/min/1.73m??? Normal >=60 [facility] Comment on above: Order Comment: Speci men Type: BLOOD SPECIMEN Ordering Facility: [facility] Address: [address] [place] [address] Result Comment: Kendra mated Glomerular Filtration Rate [...] GFR. Performed By: #### 5 7021-8 #### [facility] CLIA [id number] [address] [place], [place] [address] [place] Glucose [Mass/Vol] 86 mg/dL Normal 74-99 [facility] Comment on above: Order Comment: Adriana fitzgerald Type: BLOOD SPECIMEN Ordering Facility: [facility] Address: [address] [place] [address] Result Comment: The [place] Diabetes Association (ADA) provides guidance for cutoff [...] Standards of Medical Care in Diabetes 2016, [place] Diabetes Association. Diabetes Care. 2016.39(Suppl 1). Performed By: #### 5 7021-8 #### [facility] CLIA [id number] [address] [place], [place] [address] [place] Potassium [Moles/Vol] 4.3 mmol/L Normal 3.7-5.1 [facility] Comment on above: Order Comment: Adriana fitzgerald Type: BLOOD SPECIMEN Ordering Facility: [facility] Address: [address] [place], [place] [address] Performed By: #### 5 7021-8 #### [facility] CLIA [id number] [address] [place] [address] [place] Protein [Mass/Vol] 7.5 g/dL Normal 6.3-8.0 [facility] Comment on above: Order Comment: Speci men Type: BLOOD SPECIMEN Ordering Facility: [facility] Address: [address] [place] [address] Performed By: #### 5 7021-8 #### [facility] CLIA [id number] [address] [place] [address] [place] Sodium [Moles/Vol] 137 mmol/L Normal 136-144 [facility] Comment on above: Order Comment: Speci men Type: BLOOD SPECIMEN Ordering Facility: [facility] Address: [address] [place] [address] Performed By: #### 5 7021-8 #### [facility] CLIA [id number] [address] [place] [address] [place] Urea nitrogen [Mass/Vol] 10 mg/dL Normal 7-21 [facility] Comment on above: Order Comment: Speci men Type: BLOOD SPECIMEN Ordering Facility: [facility] Address: [address] [place] [address] Performed By: #### 5 7021-8 #### [facility] CLIA [id number] [address] [place] [address] [place] HbA1c (Bld)on 09-08-2024 Average glucose Estimated from glycated hemoglobin (Bld) [Mass/Vol] 91 mg/dL [facility] Comment on above: eAG: (Estimated aver age glucose) is a calculated value from HgbA1c and is housing management representative of the average blood glucose level in the last 2-3 month period. HbA1c (Bld) [Mass fraction] 4.8 % 4.3 - 5.6 % [facility] Comment on above: [place] Diabetes As sociation guidelines indicate that patients with HgbA1c in the range 5.7-6.4% are at increased risk for development of diabetes, and intervention by lifestyle modification may be beneficial. HgbA1c greater or equal to 6.5% is considered diagnostic of diabetes. [facility] Average glucose Estimated from glycated hemoglobin (Bld) [Mass/Vol] 91 mg/dL Normal [facility] Comment on above: Order Comment: Speci men Type: BLOOD SPECIMEN Ordering Facility: [facility] Address: [address] [place] [address] Result Comment: eAG: (Estimated average glucose) is a calculated value from HgbA1c and is housing management representative of the average blood glucose level in the last 2-3 month period. Performed By: #### 5 5454-3 #### [facility] CLIA [id number] [address] [place] [address] [place] HbA1c (Bld) [Mass fraction] 4.8 % Normal 4.3-5.6 [facility] Comment on above: Order Comment: Adriana fitzgerald Type: BLOOD SPECIMEN Ordering Facility: [facility] Address: [address] [place] [address] Result Comment: [place] Diabetes Association guidelines indicate that patients with HgbA1c in the range 5.7-6.4% are at increased risk for development of diabetes, and intervention by lifestyle modification may be beneficial. HgbA1c greater or equal to 6.5% is considered diagnostic of diabetes. Performed By: #### 5 5454-3 #### [facility] CLIA [id number] [address] [place] [address] [place] LIPID PANEL, NONFASTINGon Cholesterol [Mass/Vol] 288 mg/dL High <200 [facility] Comment on above: Order Comment: Adriana fitzgerald Type: BLOOD SPECIMEN Ordering Facility: [facility] Address: [address] [place] [address] Result Comment: <200 mg/dL, Desirable 200-239 mg/dL, Borderline high >239 mg/dL, High Performed By: #### 5 7021-8 #### [facility] CLIA [id number] [address] [place] [address] [place] HDL CHOLESTEROL, NF 108 mg/dL Normal >39 [facility] Comment on above: Order Comment: Adriana fitzgerald Type: BLOOD SPECIMEN Ordering Facility: [facility] Address: [address] [place] [address] Result Comment: 40-5 9 mg/dL, Acceptable >59 mg/dL, High: Negative risk factor for coronary heart disease <40 mg/dL, Low: Positive risk factor for coronary heart disease Performed By: #### 5 7021-8 #### [facility] CLIA [id number] [address] [place] [address] [place] [facility] LDL CHOLESTEROL CALCULATED, NF 147 mg/dL High <100 [facility] Comment on above: Order Comment: Adriana fitzgerald Type: BLOOD SPECIMEN Ordering Facility: [facility] Address: [address] [place] [address] Result Comment: <100 mg/dL, Optimal 100-129 mg/dL, Near optimal/above optimal 130-159 mg/dL, Borderline high 160-189 mg/dL, High >189 mg/dL, Very high Secondary prevention optimal LDL Cholesterol levels are recommended to be <70 mg/dL LDL cholesterol is calculated using the Kumar-NIH equation. Performed By: #### 5 7021-8 #### [facility] CLIA [id number] [address] [place] [address] [place] LDL/HDL RATIO, NF 1.36 mg/dL Normal <2.54 [facility] Comment on above: Order Comment: Adriana fitzgerald Type: BLOOD SPECIMEN Ordering Facility: [facility] Address: [address] [place] [address] Result Comment: Jocelyn betts: 1. National Cholesterol Education Program ATP III Guideline At-A-Glance Quick Desk Reference: National Heart, Lung, and Blood [place]. National Institutes of Health. 2001: NIH Publication No. 01-3305. 2. An International Atherosclerosis Society position paper: global recommendations for the management of dyslipidemia: executive summary, Atherosclerosis. 2014: 232(2):410-413. Performed By: #### 5 7021-8 #### [facility] CLIA [id number] [address] [place] [address] [place] NON HDL CHOL, NF 180 mg/dL High <130 [facility] Comment on above: Order Comment: Adriana fitzgerald Type: BLOOD SPECIMEN Ordering Facility: [facility] Address: [address], [place] [address] Result Comment: <130 mg/dL, Optimal 130-159 mg/dL, Near optimal/above optimal 160-189 mg/dL, Borderline high 190-219 mg/dL, High >219 mg/dL, Very high Secondary prevention optimal non HDL Cholesterol levels are recommended to be <100 mg/dL Performed By: #### 5 7021-8 #### [facility] CLIA [id number] [address] [place], [place] [address] [place] T CHOL/HDL RATIO NF 2.67 mg/dL Normal <5.10 [facility] Comment on above: Order Comment: Speci men Type: BLOOD SPECIMEN Ordering Facility: [facility] Address: [address] [place] [address] Performed By: #### 5 7021-8 #### [facility] CLIA [id number] [address] [place] [address] [place] TRIGLYCERIDES, NF 193 mg/dL High <150 [facility] Comment on above: Order Comment: Speci men Type: BLOOD SPECIMEN Ordering Facility: [facility] Address: [address] [place] [address] Result Comment: <150 mg/dL, Normal 150-199 mg/dL, Borderline high 200-499 mg/dL, High >499 mg/dL, Very high Performed By: #### 5 7021-8 #### [facility] CLIA [id number] [address] [place], [place] [address] [place] VLDL CHOLESTEROL, NF 36 mg/dL High <30 [facility] Comment on above: Order Comment: Speci men Type: BLOOD SPECIMEN Ordering Facility: [facility] Address: [address] [place] [address] Performed By: #### 5 7021-8 #### [facility] CLIA [id number] [address] [place], [place] [address] [place] Gang Supervisor Office Visit Reporton 07-02-2024 Gang Supervisor Office Visit Report [facility] [address], [address] [place] [address] OFFICE VISIT Date of Service: 07/02/24 MR#: [id number] Acct: [id number] Name: STEPHANY DINH Rep #: [id number] : 1965 Provider: DANIEL Purcell Age/Sex: 58/F [place] [facility] [place]: Signed Intake Vital Signs 03/14/22 14:47 07/02/24 12:51 Height 5 ft 8 in 5 ft 8 in Weight: 188 lb BMI 28.5 BP 146/81 H Intake Visit Reasons: Annual ([employer]) 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: No Is patient in pain?: No Allergies No Known Allergies Allergy (Verified 07/02/24 15:28) Medications ???Medication ???Instructions ???Recorded ???Confirmed ???Type meloxicam 15 mg tablet 15 mg PO DAILY 03/14/22 07/02/24 H istory [facility] Medical History Cyst of left breast Surgical [...] safe at home: Yes additional social history: Ocjvdbk-[employer]jh[employer] Account of [facility] 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 Date Name GA/Weeks Outcome Route Bth Weight Infant Gen Labor Lgth Anesthesia Del Locatn Provider FOB Unknown -1997 HPI Encounter for routine gynecological examination Details: [...] oriented to person and oriented to place HENME Head: normal to inspection Neck Neck: normal [...] without clayton (more content not included)... Normal [facility] Breast imaging reportOrdered By: Lyric Rosario on 06-13-2024 Study report [facility] Imaging Services [address] [place] [address] SCRN MAMM (CAD)W/FRANKY BILAT MR#: [id number] Acct: [id number] Name: STEPHANY DINH Rep #: [id number] : 1965 F 58 From: Avani Rosario MD PCP: Dr. Rajan Malone DO Status: RE G CLI Study:SCRN MAMM (CAD)W/FRANKY BILAT Date of Exa m: 06/13/24 Exam# [id number] Ordering Dr: Callie Alvarado LOCOMOTIVE OPERATOR-C EXAM: SCRN MAMM (CAD)W/FRANKY BILAT 06/13/2024 CLINICAL [...] be mailed to the patient. Reading Location: [facility] CC: LOCOMOTIVE OPERATOREarl Alvarado; Dr. Rajan Malone, ~ Big Data Platform Architect: Signed [facility] SCRN MAMM (CAD)W/FRANKY BILATo n 06-13-2024 SCRN MAMM (CAD)W/FRANKY BILAT [facility] Imaging Services [address] [place] [address] SCRN MAMM (CAD)W/FRANKY BILAT MR#: [id number] Acct: [id number] Name: STEPHANY DINH Rep #: [id number] : 1965 F 58 From: Lyric Rosario MD PCP: Dr. Rajan Malone DO Status: REG CLI Study: SCRN MAMM (CAD)W/FRANKY BILAT Date of Exam: 07/04 Exam# [id number] Ordering Dr: Callie Alvarado EXAM: SCRN MAMM [...] be mailed to the patient. Reading Location: [id number] CC: DANIEL Alvarado; Dr. Rajan Malone DO Big Data Platform Architect: Signed Normal [facility] Absolute lymphocyte counton 01-23-2022 Lymphocytes Auto (Unsp spec) [#/Vol] 1.16 10*3/uL 0.83-4.51 [facility] Work Phone: Basophil percentageon 2021 Basophils/100 WBC (Bld) 0.9 % 0-1 [facility] Work Phone: Bilirubin [Mass/Vol] 1.20 mg/dL 0.20-1.00 [facility] Work Phone: Comment on above: For patients on eltr ombopag therapy, use of Dimension [place] TBIL is not recommended. Chloride [Moles/Vol] 105 mmol/L 98-107 [facility] Work Phone: Cholesterol [Mass/Vol] 253 mg/dL <200 [facility] Work Phone: Comment on above: <200 mg/dL Desirable 200-240 mg/dL Borderline >240 mg/dL High Risk Eosinophils/100 WBC (Bld) 3.5 % 0-5 [facility] Work Phone: Glucose [Mass/Vol] 83 mg/dL 74-106 [facility] Work Phone: Neutrophils (Bld) [#/Vol] 2.6 10*3/uL 2.0-7.7 [facility] Work Phone: Neutrophils/100 WBC (Bld) 60.6 % 47-70 [facility] Work Phone: Potassium [Moles/Vol] 3.9 mmol/L 3.5-5.1 [facility] Work Phone: Protein [Mass/Vol] 7.1 g/dL 6.4-8.2 [facility] Work Phone: Sodium [Moles/Vol] 138 mmol/L 136-145 [facility] Work Phone: Triglyceride [Mass/Vol] 89 mg/dL <199 [facility] Work Phone: Comment on above: The drugs N-Acetylcy steine and Metamizole may falsely depress this assay.Serum Triglycerides Reference Interval Normal <150 mg/dL Borderline high 150 - 199 mg/dL High 200 - 499 mg/dL Very High > or = 500 mg/dL WBC (Bld) [#/Vol] 4.3 10*3/uL 4.4-11.0 [facility] Work Phone: Blood erythrocytes count (nu mber/volume)on 01-23-2022 RBC (Bld) [#/Vol] 4.39 10*6/uL 4.2-5.4 [facility]: Blood hemoglobin measurement (mass/volume)on 01-23-2022 Hemoglobin (Bld) [Mass/Vol] 13.8 g/dL 12.0-15.0 [facility] Work Phone: Blood lymphocytes/100 leukoc yteson 01-23-2022 Lymphocytes/100 WBC (Bld) 26.9 % 19-41 [facility] Work Phone: Blood monocytes/100 leukocyt eson 01-23-2022 Monocytes/100 WBC (Bld) 7.9 % 0-10 [facility] Work Phone: Blood platelet mean volumeon 01-23-2022 Platelet mean volume (Bld) [Entitic vol] 10.1 fL 6.2-12.0 [facility] Work Phone: Determination of erythrocyte mean corpuscular volume (MCV)on 01-23-2022 MCV (RBC) [Entitic vol] 91.8 fL 81-99 [facility] Work Phone: Hematocrit Auto (Bld) [Volum e fraction]on 01-23-2022 Hematocrit (Bld) [Volume fraction] 40.3 % 37-47 [facility] Work Phone: Laboratory - Chemistry and C hemistry - challengeon 01-23-2022 ALP [Catalytic activity/Vol] 46 U/L 45-117 [facility] Work Phone: ALT [Catalytic activity/Vol] 24 U/L 13-56 [facility] Work Phone: CO2 [Moles/Vol] 26.0 mmol/L 21.0-32.0 [facility] Work Phone: Cobalamin (Vitamin B12) [Mass/Vol] 251 pg/mL 211-911 [facility] Work Phone: Free T4 [Mass/Vol] 0.90 ng/dL 0.76-1.46 [facility] Work Phone: Globulin (S) [Mass/Vol] 3.3 g/dL 2.2-4.2 [facility] Work Phone: Urea nitrogen/Creatini ne [Mass ratio] 14.7 mg/mg 10-20 [facility] Work Phone: Laboratory - Hematology and Cell countson 01-23-2022 Erythrocyte distribution width (RBC) [Entitic vol] 40.0 fL 35.1-43.9 [facility] Work Phone: Erythrocyte distribution width (RBC) [Ratio] 11.8 % 11.6-14.6 [facility] Work Phone: Immature granulocytes/100 WBC (Bld) 0.200 % 0.0-0.9 [facility] Work Phone: Comment on above: IG% - Immature Granu locytes (promyelocytes, myelocytes and metamyelocytes) > 1% indicates that a LEFT SHIFT is Present. MCH (RBC) [Entitic mass] 31.4 pg 27.0-32.0 [facility] Work Phone: Nucleated RBC/100 WBC (Bld) [Ratio] 0 % 0-5 [facility] Work Phone: MCHC Auto (RBC) [Mass/Vol]on 01-23-2022 MCHC (RBC) [Mass/Vol] 34.2 g/dL 32-36 [facility] Work Phone: No Panel Informationon 01-23 Estimated GFR (MDRD) Amer 93 mL/min >60 [facility] Work Phone: Comment on above: GFR Calc Estimated GFR (MDRD) Non-Af Amer 77 mL/min >60 [facility] Work Phone: Comment on above: Non- GFR Calc Thyroid Stimulating Hormone (TSH) 3.68 uIU/mL 0.358-3.74 [facility] Work Phone: Vitamin D 25-Hydroxy 19.2 ng/mL [facility] Work Phone: Comment on above: Vitamin D 25(OH) Sta tus Range Deficiency <20 ng/mL (50nmol/L) Insufficiency 20 - 30 ng/mL (50 - 75 nmol/L) Sufficiency 30 - 100 ng/mL (75 - 250 nmol/L) Toxicity >100 ng/mL (>250 nmol/L) Platelets bldon 01-23-2022 Platelets (Bld) [#/Vol] 243 10*3/uL 150-450 [facility] Work Phone: Serum or plasma albumin goyo urement (mass/volume)on 01-23-2022 Albumin [Mass/Vol] 3.8 g/dL 3.2-5.0 [facility] Work Phone: Serum or plasma albumin/glob ulin mass ratioon 01-23-2022 Albumin/Globulin [Mass ratio] 1.2 {ratio} 0.9-2.4 [facility] Work Phone: Serum or plasma calcium goyo urement (mass/volume)on 01-23-2022 Calcium [Mass/Vol] 9.5 mg/dL 8.5-10.1 [facility] Work Phone: Serum or plasma cholesterol in HDL measurement (mass/volume)on 01-23-2022 Cholesterol in HDL [Mass/Vol] 103 mg/dL >40 [facility] Work Phone: Comment on above: The drugs N-Acetylcy steine and Metamizole may falsely depress this assay. Reference Range HDL <40 mg/dL Low HDL Cholesterol HDL >or= 60 mg/dL High HDL Cholesterol Serum or plasma cholesterol in VLDL measurement (mass/volume)on 01-23-2022 Cholesterol in VLDL [Mass/Vol] 18 mg/dL 5-40 [facility] Work Phone: Serum or plasma creatinine m easurement (mass/volume)on 01-23-2022 Creatinine [Mass/Vol] 0.82 mg/dL 0.55-1.02 [facility] Work Phone: Comment on above: The validity of the calculated GFR & GFRAA in patients over 70 years has not been determined. Clinical correlation is essential. Serum or plasma low density lipoprotein (LDL) cholesterol measurement (mass/volume)on 01-23-2022 Cholesterol in LDL [Mass/Vol] 132 mg/dL 0-130 [facility] Work Phone: Serum or plasma urea nitroge n measurement (mass/volume)on 01-23-2022 Urea nitrogen [Mass/Vol] 12 mg/dL 7-18 [facility] Work Phone: Thin prep Papanicolaou smear with manual screeningon 01-23-2022 Thin prep Papanicolaou smear with manual screening 18 U/L 15-37 [facility] Work Phone: Thin prep Papanicolaou smear with manual screening 7 5-15 [facility] Work Phone: Whole blood hemoglobin A1c/t otal hemoglobin ratio (mass fraction)on 01-23-2022 HbA1c (Bld) [Mass fraction] 4.8 % 3.8-5.6 [facility] Work Phone: Comment on above: Normal < 5.7 % Predi abetic 5.7 - 6.4 % Diabetic >or= 6.5 % Please note range changes. Office Visit: new annualon 1 Documentation of current medications (procedure) Done Invalid Interpretation Code [facility] [employer] Work Phone: Documentation of current medications (procedure) T Invalid Interpretation Code [facility] [employer] Work Phone: Fall risk assessment No Invalid Interpretation Code [facility] Tobacco smoking status NHIS Never Invalid Interpretation Code [facility] Tobacco smoking status NHIS Never smoker Invalid Interpretation Code [facility] Tobacco use CPHS Never smoker Invalid Interpretation Code [facility] [employer] Work Phone: Office Visit: new annualon 0 03-12-2015 MG Breast screening Normal Bilateral Invalid Interpretation Code [facility] General categories Cyto stain Interp (Cervical or vaginal smear or scraping) Normal Invalid Interpretation Code [facility] Lab Report: LILLIE DIR SEMI-QLo n 09-26-2010 LILLIE DIRECT 26 AU/mL Normal <100 [facility] Vital Signs Date Time Vital Sign Value Performing Clinician Facility 10-29-2024 10:21040 Body height 173 cm Rajan Malone DO Work Phone: [facility] 10-29-2024 10:210400 Body mass index (BMI) [Ratio] 27.58 kg/m2 Rajan Malone DO Work Phone: [facility] 10-29-2024 10:21040 Body temperature 98.01 [degF] Rajan Malone DO Work Phone: [facility] 10-29-2024 10:[id number] Body weight 82.56 kg Rajan Malone DO Work Phone: [facility] 10-29-2024 10:21-0400 Diastolic blood pressure 86 mm[Hg] Rajan Malone DO Work Phone: [facility] 10-29-2024 10:21-0400 Heart rate 68 /min Rajan Malone DO Work Phone: [facility] 10-29-2024 10:21-0400 Respiratory rate 12 /min Rajan Malone DO Work Phone: [facility] 10-29-2024 10:21-0400 Systolic blood pressure 140 mm[Hg] Rajan Malone DO Work Phone: [facility] 09-08-2024 10:45-0400 Body mass index (BMI) [Ratio] 28.73 kg/m2 William Drake APRN.CASINO DUTY MANAGER Work Phone: [facility] 09-08-2024 10:45-0400 Body weight 84 kg William Drake APRN.CASINO DUTY MANAGER Work Phone: [facility] 09-08-2024 10:45-0400 Diastolic blood pressure 75 mm[Hg] William Drake APRN.CASINO DUTY MANAGER Work Phone: [facility] 09-08-2024 10:45-0400 Heart rate 82 /min William Drake APRN.CASINO DUTY MANAGER Work Phone: [facility] 09-08-2024 10:45-0400 Systolic blood pressure 150 mm[Hg] William Drake APRN.CASINO DUTY MANAGER Work Phone: [facility] 01-30-2022 08:48-0500 Body weight 88.[address] Rajan Malone Work Phone: [facility] Work Phone: 01-30-2022 08:48-0500 Diastolic blood pressure 84 mm[Hg] Dr. Rajan Malone Work Phone: [facility] Work Phone: 01-30-2022 08:48-0500 Heart rate 83 /min Dr. Rajan Malone Work Phone: [facility] Work Phone: 01-30-2022 08:48-0500 Respiratory rate 17 /min Dr. Rajan Malone Work Phone: [facility] Work Phone: 01-30-2022 08:48-0500 SaO2% (BldA) [Mass fraction] 97 % Dr. Rajan Malone Work Phone: [facility] Work Phone: 01-30-2022 08:48-0500 Systolic blood pressure 138 mm[Hg] Dr. Rajan Malone Work Phone: [facility] Work Phone: 01-11-2022 18:39-0400 Diastolic blood pressure 84 mm[Hg] Rajan Malone DO Work Phone: [facility] 01-11-2022 18:39-0400 Systolic blood pressure 136 mm[Hg] Rajan Malone DO Work Phone: [facility] 01-11-2022 15:53-0400 Body temperature 97.9 [degF] Rajan Malone DO Work Phone: [facility] 01-11-2022 15:53-0400 Body weight 88.45 kg Rajan Malone DO Work Phone: [facility] 01-11-2022 15:53-0400 Heart rate 64 /min Rajan Malone DO Work Phone: [facility] 01-11-2022 15:53-0400 Respiratory rate 16 /min Rajan Malone DO Work Phone: [facility] 12-25-2016 13:56-0400 BMI (Body Mass Index) 26.01 kg/m2 Marjan Hunt [facility] 12-25-2016 13:56-0400 Body Temperature 97.6 [degF] Marjan Hunt [facility] 12-25-2016 13:56-0400 Body Temperature 97.59 [degF] Marjan Hunt [facility] 12-25-2016 13:56-0400 BP Diastolic 69 mm[Hg] Marjanmarlon Hunt [facility] 12-25-2016 13:56-0400 BP Systolic 132 mm[Hg] Marjanmarlon Hunt [facility] 12-25-2016 13:56-0400 Height 171.[address] [facility] 12-25-2016 13:56-0400 Pulse (Heart Rate) 74 /min Marjanmarlon Hunt [facility] 12-25-2016 13:56-0400 Respiratory Rate 16 /min Marjanmarlon Hunt [facility] 12-25-2016 13:56-0400 Weight 76.48 kg Marjan [facility] Encounters Encounter Date Encounter Type Care Provider Facility Start: 12-09-2024 ambulatory Praveena J Norman Facilit y:[facility] Start: 11-28-2024 ambulatory Rajan Malone Facilit y:[facility] Start: 11-26-2024 ambulatory Dickson Jacque Facility:[facility] Start: 11-12-2024 ambulatory Rajan Malone Facilit y:[facility] Start: 11-11-2024 ambulatory Rajan Malone Facilit y:[facility] Start: 10-31-2024 End: 10-31-2024 ambulatory Rajan L Malone DO Work Phone: [facility] [place] Comment on above: Metformin Start: 10-31-2024 End: 10-31-2024 Telephone encounter Rajan Malone DO Work Phone: [facility] [place] Start: 10-29-2024 End: 10-29-2024 Patient encounter procedure Rajan Malone DO Work Phone: [facility] [place] Comment on above: Well adult exam ([facility] rose Dx); Screening for colon cancer; Elevated BP without diagnosis of hypertension; Chronic pain of right knee; 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); Heterogeneously dense tissue of both breasts on mammography; Dyslipidemia Start: 10-29-2024 End: 10-29-2024 Patient encounter status Rajan Malone DO Work Phone: [facility] Start: 10-29-2024 End: 10-29-2024 ambulatory Rajan Malone DO Work Phone: [facility] [place] Comment on above: Tests Start: 10-18-2024 End: 10-18-2024 ambulatory PRAVEENASKY ELIAS NORMAN Facility:[facility] Start: 10-16-2024 End: 10-16-2024 ambulatory SELF Facility:[facility] Start: 09-22-2024 End: 09-24-2024 Follow-up encounter William Drake APRN.CASINO DUTY MANAGER Work Phone: [facility] [place] Comment on above: Results Start: 09-08-2024 End: 09-08-2024 ambulatory Rajan Malone DO Work Phone: [facility] [place] Comment on above: Hypertension Start: 09-08-2024 End: 09-08-2024 Patient encounter procedure William Drake APRN.CASINO DUTY MANAGER Work Phone: [facility] [place] Comment on above: Hypertension, essent ial (Primary Dx); Screening for diabetes mellitus; Encounter for lipid screening for cardiovascular disease; Overweight (BMI 25.0-29.9) Start: 07-02-2024 End: 07-02-2024 ambulatory Callie Alvarado Facility:[facility] Start: 06-13-2024 End: 06-13-[address] Rajan Malone DO Work Phone: [facility] Work Phone: Start: 06-13-2024 End: 06-13-2024 Patient encounter procedure Callieamilcar Nguyencori LOCOMOTIVE OPERATOR-C -Outpatient Breast Imaging Work Phone: Start: 06-13-2024 End: 06-13-2024 ambulatory Callie Alvarado Facility:[facility] Start: 11-07-2023 End: 11-12-2023 ambulatory Rajan Malone DO Work Phone: Internal Medicine [place] [address] Start: 11-15-2022 ambulatory Rajan cagle DO Work Phone: Internal Medicine [facility] Start: 02-17-2022 End: 02-17-2022 Patient encounter procedure Claudia Walton MD Work Phone: [facility] Comment on above: Knee pain with avasc ular 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 (HCC); Medial knee pain, right Start: 02-16-2022 End: 02-16-[address] Rajan Malone Work Phone: [facility] Work Phone: Start: 02-16-2022 End: 02-16-[address] [facility] Malone [facility] Start: 02-15-2022 Telephone encounter Rajan varner DO Work Phone: [facility] Comment on above: Orders Start: 02-14-2022 ambulatory Rajan cagle DO Work Phone: [facility] Comment on above: ortho appt with Dr Deo la Start: 01-30-2022 End: 01-30-[address] Rajan Malone Work Phone: [facility] Start: 01-23-2022 Chart abstracting Rajan blackwell DO Work Phone: [facility] Comment on above: Outside Labs-[facility] Ord ered outside imaging Start: 01-23-2022 End: 01-23-2022 ambulatory [facility] Work Phone: Start: 01-23-2022 End: 01-23-2022 Patient encounter procedure [facility]-Outpatient Breast Imaging Start: 01-19-2022 End: 01-19-2022 ambulatory [facility] Work Phone: Start: 01-19-2022 End: 01-19-2022 Patient encounter procedure [facility]-Outpatient Bone Densitometry Start: 01-11-2022 End: 01-11-2022 Patient encounter procedure Rajan Jollyrison DO Work Phone: [facility] Comment on above: Bilateral hip pain ( Primary Dx); Foot pain, bilateral; 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); Dyslipidemia; Medial knee pain, right; Well adult exam; Chronic midline low back pain without sciatica; Screening for osteoporosis; Post-menopausal Start: 01-11-2022 End: 01-11-2022 Patient encounter status Rajan Mills Malone DO Work Phone: [facility] Start: 12-22-2021 End: 12-22-2021 ambulatory [facility] Work Phone: Start: 12-22-2021 End: 12-22-2021 Patient encounter procedure [facility]-MRI - [facility] Start: 12-07-2021 ambulatory Rajan Hale gurjit DO Work Phone: Internal Medicine [facility] [place] Start: 11-19-2021 Orders Only Kevin Armstrong Work Phone: [facility] Comment on above: Medial knee pain, ri ght (Primary Dx) Start: 11-09-2021 End: 11-09-2021 Patient encounter procedure Kevin Mccullough DO Work Phone: [facility] Comment on above: Medial knee pain, ri ght (Primary Dx) Start: 04-23-2019 Patient encounter status Mikey Mccullough V DO Work Phone: [facility] Work Phone: Procedures Date Procedure Procedure Detail Performing Clinician Start: 10-18-2024 Lipid 1996 panel - Serum or Plasma Rajan Malone DO Work Phone: Start: 09-08-2024 Lipid 1996 panel - Serum or Plasma William Drake APRN.CASINO DUTY MANAGER Work Phone: Start: 06-13-[address] [...] 12-14-2020 Adult depression screening assessment Kevin Mccullough V DO Work Phone: Start: 10-29-2020 Mammography Kevin Mccullough V, DO Work Phone: Start: 04-21-2019 Lipid 1996 panel - Serum or Plasma Rajan Malone DO Work Phone: Start: 12-25-2016 End: 12-25-2016 Bacterial Vaginosis; Rapid Breanna S Hasti ngs LOCOMOTIVE OPERATOR Work Phone: Start: 12-25-2016 Gynecologic examination Routine gynecological examination Marjan Hunt Start: 12-25-2016 End: 12-25-2016 Documentation of current medications Marjan Hunt Start: 05-11-2014 Colonoscopy Kevin Mccullough V DO Work Phone: Plan of Treatment Date Care Activity Detail Author Start: 05-19-2034 Urine microalbumin profile DTaP,Tdap,Td Vaccine (2 - Td or Tdap) [facility] Start: 10-18-2029 Lipid panel Lipid Screening [facility] Start: 09-08-2029 Lipid panel Lipid Screening [facility] Start: 09-09-2027 Diabetes Screening Diabetes Screenin g [facility] Start: 01-24-2026 HPV TESTING HPV TESTING [facility] Start: 01-24-2026 PAP TESTING PAP TESTING [facility] Start: 01-24-2026 Screening for malign ant neoplasm of cervix Cervical Cancer Screening [facility] Start: 10-16-2025 Hepatitis C screening Hepatitis C Sc arabella [facility] Comment on above: Postponed from 09/20 (Declined at this time) Start: 10-16-2025 HIV screening HIV Screening [facility] Comment on above: Postponed from 09/20 (Declined at this time) Start: 06-13-2025 Screening for malign ant neoplasm of breast Mammogram Screening [facility] Start: 02-25-2025 End: 02-25-2025 Patient encounter procedure 02/25/2025 11:20 AM EST Office Visit Family Medicine [place] [address] [facility] [place] [address] Rajan Malone, DO [address] [place] [address] 4 month follow up [facility] [place] Comment on above: 4 month follow up Start: 11-14-2024 End: 11-14-2024 Patient encounter procedure 11/14/2024 1:00 PM EDT Office Visit Family [facility] [place] [address] [place] [address] Rajan Malone, DO [address] [place] [address] Physical Family Medicine [place] Comment on above: Physical Start: 11-10-2024 Influenza vaccination Influenza Vacc ine (#1) [facility] Start: 09-22-2024 End: 09-22-2024 Patient encounter procedure 09/22/2024 8:00 AM EDT Office Visit Family Medicine [place] [address] [place] [address] William Drake APRN.CASINO DUTY MANAGER [address] [place] [address] bp follow up [facility] [place] Comment on above: bp follow up Start: 09-08-2024 End: 12-08-2024 Comprehensive metabolic 2000 panel - Serum or Plasma [facility] Comment on above: Expected: 09/08/2024 , Expires: 12/08/2024 Start: 09-08-2024 End: 12-08-2024 LIPID PANEL, NONFASTING [facility] Work Phone: Comment on above: Expected: 09/08/2024 , Expires: 12/08/2024 Start: 04-21-2024 Lipid panel Lipid Screening [facility] Start: 04-21-2024 LIPID SCREEN LIPID SCREEN [facility] Start: 11-11-2023 Covid-19 Vaccine ( season) Covid-19 Vaccine () [facility] Start: 11-11-2023 Covid-19 Vaccine () Covid-19 Vaccine () [facility] Start: 11-11-2023 Influenza vaccination Influenza Vacc ine (#1) [facility] Start: 11-10-2022 Influenza vaccination INFLUENZA (#1) [facility] Start: 09-08-2022 Influenza vaccination INFLUENZA (#1) [facility] Comment on above: Postponed from 11/10 (Declined at this time) Start: 04-21-2022 DIABETES SCREEN DIABETES SCREEN [facility] Start: 04-21-2022 Diabetes Screening Diabetes Screenin g [facility] Start: 03-12-2022 DEPRESSION ASSESSMENT DEPRESSION ASS ESSMENT [facility] Start: 01-11-2022 End: 03-13-2022 25-hydroxyvitamin D3 [Mass/volume] in Serum or Plasma VITAMIN D 25 HYDROXY Lab Routine Well adult exam Expected: 01/11/2022, Expires: 03/13/2022 [facility] Work Phone: Comment on above: Expected: 01/11/2022 , Expires: 03/13/2022 Start: 01-11-2022 End: 03-13-2022 CBC W Auto Differential panel - Blood CBC + DIFF Lab Routine Dyslipidemia Well adult exam Expected: 01/11/2022, Expires: 03/13/2022 [facility] Work Phone: Comment on above: Expected: 01/11/2022 , Expires: 03/13/2022 Start: 01-11-2022 End: 03-13-2022 Cobalamin (Vitamin B12) [Mass/volume] in Serum or Plasma VITAMIN B12 BLOOD Lab Routine Well adult exam Expected: 01/11/2022, Expires: 03/13/2022 [facility] Work Phone: Comment on above: Expected: 01/11/2022 , Expires: 03/13/2022 Start: 01-11-2022 End: 03-13-2022 Comprehensive metabolic 2000 panel - Serum or Plasma COMP METABOLIC PANEL Lab Routine Dyslipidemia Well adult exam Expected: 01/11/2022, Expires: 03/13/2022 [facility] Work Phone: Comment on above: Expected: 01/11/2022 , Expires: 03/13/2022 Start: 01-11-2022 End: 03-13-2022 Hemoglobin A1c in Blood HGB A1C Lab Routine Dyslipidemia Well adult exam Expected: 01/11/2022, Expires: 03/13/2022 [facility] Work Phone: Comment on above: Expected: 01/11/2022 , Expires: 03/13/2022 Start: 01-11-2022 End: 03-13-2022 Lipid 1996 panel - Serum or Plasma LIPID PANEL BASIC Lab Routine Dyslipidemia Well adult exam Expected: 01/11/2022, Expires: 03/13/2022 [facility] Work Phone: Comment on above: Expected: 01/11/2022 , Expires: 03/13/2022 Start: 01-11-2022 End: 03-13-2022 Thyrotropin [Units/volume] in Serum or Plasma TSH BLD Lab Routine Well adult exam Expected: 01/11/2022, Expires: 03/13/2022 [facility] Work Phone: Comment on above: Expected: 01/11/2022 , Expires: 03/13/2022 Start: 01-11-2022 End: 03-13-2022 Thyroxine (T4) free [Mass/volume] in Serum or Plasma T4 FREE/FREE THYROX Lab Routine Well adult exam Expected: 01/11/2022, Expires: 03/13/2022 [facility] Work Phone: Comment on above: Expected: 01/11/2022 , Expires: 03/13/2022 Start: 12-14-2021 Adult depression screening assessment DEPRESSION SCREENING [facility] Start: 12-14-2021 HEPATITIS C SCREENING HEPATITIS C SC ARABELLA [facility] Comment on above: Postponed from 09/20 (Declined at this time) Start: 12-14-2021 HIV SCREENING HIV SCREENING [facility] Comment on above: Postponed from 09/20 (Declined at this time) Start: 11-10-2021 Influenza vaccination INFLUENZA (#1) [facility] Start: 10-29-2021 Mammography MAMMOGRAM [facility] Start: 10-29-2021 Screening for malign ant neoplasm of breast Mammogram Screening [facility] Start: 07-31-2021 COVID-19 VACCINE (3 - Booster for Pfizer series) COVID-19 VACCINE (3 - Booster for Pfizer series) [facility] Start: 04-27-2021 COVID-19 VACCINE (3 - Booster for Pfizer series) COVID-19 VACCINE (3 - Booster for Pfizer series) [facility] Start: 04-27-2021 COVID-19 VACCINE (3 - Pfizer series) COVID-19 VACCINE (3 - Pfizer series) [facility] Start: 03-12-2021 DEPRESSION ASSESSMENT DEPRESSION ASS ESSMENT [facility] Start: 03-24-2020 HPV TESTING HPV TESTING [facility] Start: 03-24-2020 PAP TESTING PAP TESTING [facility] Start: 05-12-2019 Colonoscopy COLONOSCOPY [facility] Start: 05-12-2019 COLORECTAL CANCER SCREENING COLORECTAL CANCER SCREENING [facility] Start: 05-12-2019 Screening for malign ant neoplasm of colon [facility] Start: 12-25-2016 End: 12-25-2016 Appointment Appointment [facility] Start: 12-25-2016 End: 12-25-2016 Mammogram, both breasts Mammogram, Diagnostic, both breasts [facility] Start: 12-25-2016 End: 12-25-2016 Surgery Referral Surgery Referral [facility] Start: 12-25-2016 End: 12-25-2016 Us exam, breast(s) US Breast(s) [facility] Start: 09-21-2015 Pneumococcal Vaccine : 50+ (1 of 1 - PCV) Pneumococcal Vaccine: 50+ (1 of 1 - PCV) [facility] Start: 09-21-2015 SHINGRIX VACCINE (1 of 2) SHINGRIX VACCINE (1 of 2) [facility] Start: 2010 COLOGUARD (FIT-DNA) COLOGUARD (FIT-D NA) [facility] Start: [address] COLONOGRAPHY [facility] Start: 2010 FECAL OCCULT BLOOD FECAL OCCULT BLOO D [facility] Start: 2010 Screening for malign ant neoplasm of colon [facility] Start: 2010 SIGMOIDOSCOPY SIGMOIDOSCOPY [facility] Start: 1984 Hepatitis B Vaccine (1 of 3 - 19+ 3-dose series) Hepatitis B Vaccine (1 of 3 - 19+ 3-dose series) [facility] Start: 1984 Urine microalbumin profile [facility] Start: 09-21-1983 Depression Screening Depression Scre ening [facility] Start: 09-21-1983 HEPATITIS C SCREENING HEPATITIS C [facility] Start: 09-21-1983 Hepatitis C screening Hepatitis C [facility] Start: 09-21-1983 HIV SCREENING HIV SCREENING [facility] Start: 09-21-1983 HIV screening HIV Screening [facility] Start: 1965 HEPATITIS B (1 of 3 - 3-dose series) HEPATITIS B (1 of 3 - 3-dose series) [facility] COLOGUARD COLOGUARD Lab Ro utine Screening for colon cancer Ordered: 10/29/2024 [facility] Work Phone: Comment on above: Ordered: 10/29/2024 End: 12-06-2024 DBT Breast - bilateral screening ADEEL SCREENING W [facility] Radiology Routine Encounter for screening mammogram for breast cancer 1 Occurrences starting 11/07/2023 until 12/06/2024 [facility] Work Phone: Comment on above: 1 Occurrences starti ng 11/07/2023 until 12/06/2024 End: 02-10-2023 Dxa bone density study 1/> sites axial skel DXA-AXIAL SKELETON Radiology Routine Screening for osteoporosis Post-menopausal 1 Occurrences starting 01/11/2022 until 02/10/2023 [facility] Work Phone: Comment on above: 1 Occurrences starti ng 01/11/2022 until 02/10/2023 End: 12-15-2023 ADEEL SCREENING ADEEL SCREENING Radiology Routine Encounter for screening mammogram for breast cancer 1 Occurrences starting 11/15/2022 until 12/15/2023 [facility] Work Phone: Comment on above: 1 Occurrences starti ng 11/15/2022 until 12/15/2023 End: 12-19-2022 MRI KNEE WO IVCON RT MRI KNEE WO IVCON RT Radiology Routine Medial knee pain, right 1 Occurrences starting 11/19/2021 until 12/19/2022 [facility] Work Phone: Comment on above: 1 Occurrences starti ng 11/19/2021 until 12/19/2022 End: 02-10-2023 Radex spine lumbosacral 2/3 views XR LUMBAR GENERAL 3V AP/LAT/L5-S1 Radiology Routine Chronic midline low back pain without sciatica 1 Occurrences starting 01/11/2022 until 02/10/2023 [facility] Work Phone: Comment on above: 1 Occurrences starti ng 01/11/2022 until 02/10/2023 End: 01-06-2023 Screening mammography bi 2-view breast inc cad ADEEL SCREENING Radiology Routine Encounter for screening mammogram for breast cancer 1 Occurrences starting 12/07/2021 until 01/06/2023 [facility] Work Phone: Comment on above: 1 Occurrences starti ng 12/07/2021 until 01/06/2023 End: 10-29-2025 US Carotid arteries - bilateral US CAROTID ARTERIES [facility] Vascular Lab Routine Elevated BP without diagnosis of hypertension 1 Occurrences starting 10/29/2024 until 10/29/2025 [facility] Comment on above: 1 Occurrences starti ng 10/29/2024 until 10/29/2025 End: 10-29-2025 US Renal artery US RENAL ARTERY [facility] Vascular Lab Routine Elevated BP without diagnosis of hypertension 1 Occurrences starting 10/29/2024 until 10/29/2025 [facility] Comment on above: 1 Occurrences starti ng 10/29/2024 until 10/29/2025 End: 02-10-2023 XR FOOT GENERAL 3V AP/LAT/OBL BILATERAL XR FOOT GENERAL 3V AP/LAT/OBL BILATERAL Radiology Routine Foot pain, bilateral 1 Occurrences starting 01/11/2022 until 02/10/2023 [facility] Work Phone: Comment on above: 1 Occurrences starti ng 01/11/2022 until 02/10/2023 End: 02-10-2023 XR HIP BILATERAL 5V PEL/AP/LAT EACH HIP XR HIP BILATERAL 5V PEL/AP/LAT EACH HIP Radiology Routine Bilateral hip pain Medial knee pain, right 1 Occurrences starting 01/11/2022 until 02/10/2023 [facility] Work Phone: Comment on above: 1 Occurrences starti ng 01/11/2022 until 02/10/2023 End: 03-17-2023 XR KNEE LIMITED 2V AP/LAT RIGHT XR KNEE LIMITED 2V AP/LAT RIGHT Radiology Routine Medial knee pain, right 1 Occurrences starting 02/15/2022 until 03/17/2023 [facility] Work Phone: Comment on above: 1 Occurrences starti ng 02/15/2022 until 03/17/2023 [facility] Immunizations Immunization Date Immunization Notes Care Provider Karen oliver 05-19-2024 tetanus toxoid, redu yoko diphtheria toxoid, and acellular pertussis vaccine, adsorbed Rajan Malone DO Work Phone: [facility] 01-09-2024 influenza, seasonal, injectable, preservative free Dr. Rajan Malone DO Work Phone: [facility] 01-09-2024 influenza virus vaccine, unspecified formulation William Drake APRN.CASINO DUTY MANAGER Work Phone: [facility] 02-19-2023 influenza, injectabl e, quadrivalent, preservative free Dr. Rajan Malone DO Work Phone: [facility] 01-25-2022 influenza, injectabl e, quadrivalent, preservative free Dr. Rajan Malone DO Work Phone: [facility] 01-25-2022 influenza, seasonal, injectable [facility] Work Phone: 01-25-2022 influenza virus vaccine, unspecified formulation aRjan Malone DO Work Phone: [facility] 03-02-2021 Covid (Pfizer) [facility] 02-09-2021 Covid (Pfizer) [facility] 02-01-2021 influenza, injectabl e, quadrivalent, preservative free Dr. Rajan Malone DO Work Phone: [facility] 02-01-2021 influenza, seasonal, injectable [facility] Work Phone: 02-01-2021 influenza, seasonal, injectable, preservative free Rajan Malone DO Work Phone: [facility] 04-08-2020 influenza, injectabl e, quadrivalent, preservative free Dr. Rajan Malone DO Work Phone: [facility] 04-08-2020 influenza, seasonal, injectable [facility] Work Phone: 04-08-2020 influenza, seasonal, injectable, preservative free Rajan Malone DO Work Phone: [facility] 01-22-2019 influenza, injectabl e, quadrivalent, preservative free Dr. Rajan Malone DO Work Phone: [facility] 01-22-2019 influenza, seasonal, injectable [facility] Work Phone: 02-07-2018 influenza, injectabl e, quadrivalent, preservative free Dr. Rajan Malone DO Work Phone: [facility] 02-07-2018 influenza, seasonal, injectable [facility] Work Phone: 01-03-2017 influenza, injectabl e, quadrivalent, preservative free Dr. Rajan Malone DO Work Phone: [facility] 01-03-2017 influenza, seasonal, injectable [facility] Work Phone: 12-27-2016 influenza, seasonal, injectable Kevin Mccullough V, DO Work Phone: [facility] Work Phone: 01-31-2016 influenza, injectabl e, quadrivalent, preservative free Dr. Rajan Malone DO Work Phone: [facility] 01-31-2016 influenza, seasonal, injectable [facility] Work Phone: 12-24-2014 influenza, injectabl e, quadrivalent, preservative free Dr. Rajan Malone DO Work Phone: [facility] 12-24-2014 influenza, seasonal, injectable [facility] Work Phone: 12-24-2014 influenza, seasonal, injectable, preservative free Rajan Malone DO Work Phone: [facility] 12-24-2013 influenza, seasonal, injectable Kevin Mccullough V, DO Work Phone: [facility] Work Phone: 12-04-2013 influenza, injectabl e, quadrivalent, preservative free Dr. Rajan Malone DO Work Phone: [facility] 12-04-2013 influenza, seasonal, injectable [facility] Work Phone: 01-29-2013 Influenza virus vaccine [facility] 01-29-2013 influenza, seasonal, injectable, preservative free Rajan Malone DO Work Phone: [facility] Payers Date Payer Category Payer Unknown [id number] 2024 Self-pay [id number] 2018 Private Health Insurance MMO [employer] PPO [id number] 2018 Unknown [id number] 2013 Unknown [id number] Unknown [id number] Unknown [id number] Unknown [id number] Unknown [id number] Unknown [id number] Unknown [id number] Unknown [id number] Social History Date Type Detail Facility Start: 12-19-2010 End: 03-14-2022 Tobacco smoking status NHIS Never smoked tobacco [facility] Work Phone: Start: 12-19-2010 Tobacco use and exposure Smokeless tobacco non-user [facility] Work Phone: Start: 11-09-2021 End: 10-29-2024 Alcohol intake Current drinker of alcohol (finding) [facility] Start: 11-09-2021 End: 06-04-2024 Alcohol intake [facility] Start: 04-16-2019 End: 01-11-2022 History SDOH Alcohol Frequency 5 [facility] Start: 04-16-2019 End: 01-11-2022 History SDOH Alcohol Std Drinks 2 [facility] Start: 09-29-2014 History SDOH Alcohol Comment One glass each Evening [facility] Start: 04-16-2019 End: 01-11-2022 History SDOH Social Connections [employer] 1 [facility] Start: 04-16-2019 End: 01-11-2022 History SDOH Social Connections Living 3 [facility] Start: 04-16-2019 End: 01-11-2022 History SDOH Stress 4 [facility] Start: 04-16-2019 Education 17 [facility] Start: 1965 Sex Assigned At Female [facility] Start: 10-30-2021 End: 01-11-2022 Exposure to SARS-CoV-2 (event) Not sure [facility] Start: 01-12-2021 End: 01-30-2022 Tobacco smoking status NHIS Unknown if ever smoked [facility] Work Phone: Start: 01-11-2022 History SDOH Physical Activity DPW 0 [facility] Start: 01-11-2022 End: 06-04-2024 Social connection and isolation panel [facility] Do you belong to any clubs or organizations such as tenriism groups, unions, fraternal or athletic groups, or school groups? No [facility] Are you now , , , , never or living with a partner? [facility] How often to you hav e a drink containing alcohol? 4 or more times a week [facility] How many standard dr inks containing alcohol do you have on a typical day? 3 or 4 [facility] How often do you hav e 6 or more drinks on 1 occasion? Weekly [facility] Start: 02-11-2012 How hard is it for you to pay for the very basics like food, housing, medical care, and heating Not hard at all [facility] Do you feel stress - tense, restless, nervous, or anxious, or unable to sleep at night because your mind is troubled all the time - these days [OSQ] Very much [facility] (I/We) worried steve er (my/our) food would run out before (I/we) got money to buy more. Never true [facility] Start: 04-17-2019 Gender identity Identifies as female gender (finding) [facility] Start: 04-17-2019 Sexual orientation Heterosexual (finding) [facility] Start: 06-17-2024 Sex Female (finding) [facility] How many standard dr inks containing alcohol do you have on a typical day? 1 or 2 [facility] How often do you hav e 6 or more drinks on 1 occasion? Less than monthly [facility] Do you feel stress - tense, restless, nervous, or anxious, or unable to sleep at night because your mind is troubled all the time - these days [OSQ] To some extent [facility] Functional Status Date Assessment Result Facility 09-29-2014 Are you deaf, or do you have serious difficulty hearing No 09/29/2014 2:09 PM Wanda Leone RN No [facility] 09-29-2014 Are you blind, or do you have serious difficulty seeing, even when wearing glasses No 09/29/2014 2:09 PM Wanda Leone RN No [facility] 09-29-2014 Do you have serious difficulty walking or climbing stairs No 09/29/2014 2:09 PM Wanda Leone RN No [facility] 09-29-2014 Do you have difficul ty dressing or bathing No 09/29/2014 2:09 PM Wanda Leone RN No [facility] 09-29-2014 Because of a physica l, mental, or emotional condition, do you have difficulty doing errands alone such as visiting a physician's office or shopping No 09/29/2014 2:09 PM Wanda Leone RN No [facility] Mental Status Date Assessment Result Facility 09-29-2014 Because of a physica l, mental, or emotional condition, do you have serious difficulty concentrating, remembering, or making decisions No 09/29/2014 2:09 PM Wanda Leone RN No [facility] Clinical Notes 11-09-2021 to 10-31-2024 Telephone Encounter - Hellen Perez MA - 10/31/2024 9:49 AM EDTTelephone Encounter - Hellen Perez MA - 10/31/2024 9:49 AM Rajan Munoz DO - 10/29/2024 10:39 AM EDT Note Date & Type Note Facility 08-22-2025 Miscellaneous Notes See pt message We had discussed low dose Metformin to help with weight loss. Can we move forward with that? documented in this encounter [facility] 10-31-2024 Telephone encounter Note See pt message We had discussed low dose Metformin to help with weight loss. Can we move forward with that? [facility] 10-29-2024 Note HNO ID: [id number] Author: RAJAN MALONE, DO Service: ? Author [...] severe worsening of (more content not included)... [facility] 10-29-2024 History of Present illness Narrative [...] processed foods. The 10-year ASCVD risk score ([place] DK, et al., 2019) is: 2.7% Values [...] agreed with the plan. Rajan Malone DO [address] [place] [address] [1] Social History Tobacco Use Smoking status: Never Smokeless tobacco: Never Vaping Use Vaping status: Never Used Substance Use Topics Alcohol use: Yes Alcohol/week: 9.1 standard drinks of alcohol Types: 7 Mixed Drinks per week Comment: One glass each Evening Drug use: No documented in this encounter [facility] 10-29-2024 Instructions Rajan Malone DO - 10/29/2024 10:[address] Arlin Gonzales Primary care physician documented in this encounter [facility] 10-16-2024 Note HNO ID: [id number] Author: PRAVEENA BERRY APRN.CASINO DUTY MANAGER Service: ? Author Type: Nurse Practitioner Type: [...] ICD9: 278.02, ICD10: E66.3 -Stable William Drake APRN.CASINO DUTY MANAGER Note Details Instructions Return in about 2 [...] (H) <100 mg/dL (more content not included)... [facility] 09-24-2024 Telephone encounter Note Message read with results from Provider on 09/24/24 at 7:09 am. Fe Cardoza MA [facility] 09-24-2024 Miscellaneous Notes Message read with results from Provider on 09/24/24 at 7:09 am. Fe Cardoza MA Pt active on mychart- message sent Arline Carl MA Please let patient know her lipids are significantly elevated. Would recommend statin however statins and alcohol use are contraindicated so for now continue to decrease ETOH consumption and follow low cholesterol diet. documented in this encounter [facility] 09-23-2024 Telephone encounter Note Pt active on [employer]- message sent Arline Carl MA [facility] 09-22-2024 Telephone encounter Note Please let patient know her lipids are significantly elevated. Would recommend statin however statins and alcohol use are contraindicated so for now continue to decrease ETOH consumption and follow low cholesterol diet. [facility] Work Phone: 09-08-2024 Note HNO ID: [id number] Author: WILLIAM DRAKE APRN.CNP Service: ? Author [...] ICD9: 278.02, ICD10: E66.3 -Stable William Drake APRN.[facility] 09-08-2024 History of Present illness Narrative [...] ICD9: 278.02, ICD10: E66.3 -Stable William Drake APRN.CASINO D[employer]Y MANAGER documented in this encounter [facility] 09-08-2024 Telephone encounter Note Patient calls for HTN. [...] headache, weakness. Protocols used: Blood Pressure - Blpi-TAOUR-CL [facility] 09-08-2024 Miscellaneous Notes Patient calls for [...] headache, weakness. Protocols used: Blood Pressure - Omsd-[id number]-CT documented in this encounter [facility] 02-17-2022 History of Present illness Narrative [...] and also by Dr. Jamel nielsen in [place]. She has not done any physical therapy. She denies any popping, clicking, locking or giving way. She has some pain at night. She denies any history of prolonged steroids or history of immunosuppressants. She has not had a work-up for the avascular necrosis that she has on MRI. 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 Works for [employer] system ALLERGIES No Known Allergies PAST MEDICAL HISTORY [...] tear. They have been down-loaded to the [facility] system. Plain films from [facility] are personally reviewed by me and [...] Claudia Walton MD documented in this encounter [facility] 02-16-2022 Miscellaneous Notes Patient returned call and went over notes from Dr Malone with understanding. Patient said she did her xray at [facility] and had put on disc so she can take to appt Sunday with Dr Walton. Left message for return call. I am not sure what Dr. Walton would like so she can wait if she would like to d/w him on Sunday Rajan Malone DO Sent pt mychart message Good Morning, Patient was calling if she still needs to have an X-Ray if she had an MRI? Please advise Thank You documented in this encounter [facility] 02-15-2022 Miscellaneous Notes Xray order placed. Elke Fierro APRN.CASINO DUTY MANAGER Please order xray of right knee. Will fax order to [facility]. Hellen Harkins Ma Please see pt message. Looks like pt had X-rays recently completed on 01/23. Hellen Harkins Ma documented in this encounter [facility] 01-23-2022 History of Present illness Narrative Please see outside XR reports: Scan on 01/23/2022 11:59 AM by External Provider: X-ray Scan on 01/23/2022 11:58 AM by External Provider: X-ray Scan on 01/23/2022 11:57 AM by External Provider: X-ray Scan on 01/23/2022 11:52 AM by External Provider: X-ray Marcela Gomez LPN documented in this encounter [facility] 01-23-2022 History of Present illness Narrative Please see outside lab results: Scan on 01/23/2022 9:15 AM by External Provider: Chemistry Scan on 01/23/2022 10:18 AM by External Provider: Miscellaneous Lab Marcela Gomez LPN documented in this encounter [facility] 01-11-2022 History of Present illness Narrative [...] diet of 1000 mg/day for under 50, [id number] mg/day for 50+ - COMP METABOLIC PANEL [...] plan. See patient instructions. Rajan Malone DO [address] [place] [address] documented in this encounter [facility] 01-11-2022 Instructions Rajan Malone DO - 01/11/2022 4:[address] Sharon Walton documented in this encounter [facility] 11-09-2021 History of Present illness Narrative [...] Intervention/Comfort measure: Cold documented in this encounter [facility] Evaluation note Diagnosis Medial knee pain, right- Primary [facility], right- [facility] Encounter for screening mammogram for breast cancer documented in this encounter [facility]No [facility]: Evaluation note* Diagnosis [...] status (age-related) (natural) documented in this encounter [facility] note* Diagnosis Medial knee pain, right- Primary documented in this encounter [facility] note* Diagnosis 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) Medial knee pain, right documented in this encounter [facility] note* Diagnosis Onset Date Resolution Status Cyst of left breast acute [facility] Work Phone: evaluation note* Diagnosis Encounter for screening mammogram for breast cancer documented in this encounter [facility] note* Diagnosis Hypertension, essential- Primary Unspecified essential hypertension Screening for diabetes mellitus Encounter for lipid screening for cardiovascular disease Screening for lipoid disorders Overweight (BMI 25.0-29.9) Overweight documented in this encounter [facility] note* Diagnosis Well adult exam- Primary Routine general medical examination at a health care facility Screening for colon cancer Special screening for malignant neoplasms, colon Elevated BP without diagnosis of hypertension Chronic pain of right knee Knee pain with avascular 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 ([facility]) Heterogeneously dense tissue of both breasts on mammography Dyslipidemia Other and unspecified hyperlipidemia documented in this encounter [facility] for referral (narrative)* Diagnostic Procedure Only (Routine) - Pending Review Specialty Diagnoses / Procedures Referred By Bhavya t Referred To Contact BR IMAGING Diagnoses Encounter for screening mammogram for breast cancer Procedures ADEEL SCREENING SCREENING MAMMOGRAPHY BI 2-VIEW BREAST INC Rajan Simon, DO [address] [place] [address] Br Imaging [address] [place] [address] Referral ID Status Reason Start Date Expiration Date Visits Requested Visits Authorized [id number] Pending Review Auto-Generat ed Referral 12/07/2021 01/06/[address] [facility] for referral (narrative)* Diagnostic Procedure Only (Routine) - Pending Review Specialty Diagnoses / Procedures Referred By Contac t Referred To Contact XR IMAGING Diagnoses Medial knee pain, right Procedures XR KNEE LIMITED 2V AP/LAT RIGHT RADIOLOGIC EXAMINATION KNEE 1/2 VIEWS Rajan Malone, DO [address] [place] [address] Xr Imaging Referral ID Status Reason Start Date Expiration Date Visits Requested Visits Authorized [id number] Pending Review Auto-Generat ed Referral 02/15/2022 03/17/2023 1 1 [facility] for referral (narrative)* Diagnostic Procedure Only (Routine) - Pending Review Specialty Diagnoses / Procedures Referred By Contac t Referred To Contact BR IMAGING Diagnoses Encounter for screening mammogram for breast cancer Procedures ADEEL SCREENING SCREENING MAMMOGRAPHY BI 2-VIEW BREAST INC CAD Rajan Malone, DO [address] [place] [address] Br Imaging [address] [place] [address] Referral ID Status Reason Start Date Expiration Date Visits Requested Visits Authorized [id number] Pending Review Auto-Generat ed Referral 11/15/2022 12/15/[address] [facility] for referral (narrative)* Diagnostic Procedure Only (Routine) - New Request Specialty Diagnoses / Procedures Referred By Contac t Referred To Contact BR IMAGING Diagnoses Encounter for screening mammogram for breast cancer Procedures ADEEL SCREENING W FARNKY SCREENING DIGITAL BREAST TOMOSYNTHESIS BI SCREENING MAMMOGRAPHY BI 2-VIEW BREAST INC CAD Rajan Malone, DO [address] [place] [address] [facility] [address] [place] [address] Referral ID Status Reason Start Date Expiration Date Visits Requested Visits Authorized [id number] New Request Auto-Generat ed Referral 11/07/2023 12/06/2024 1 1 [facility]No reason for referral information availableWGuernsey [facility] Work Phone: Medications Administered Section [...] EXTREM W/O CONTRAST Kevin Herring V, DO [address] [place] [address] Mr Imaging Referral ID Status Reason Start Date Expiration Date Visits Requested Visits Authorized [id number] Pending Review Auto-Generat ed Referral 11/19/2021 12/19/2022 1 1 Specialty Diagnoses / Procedures Referred By Contac t Referred To Contact Orthopedics Diagnoses 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) Medial knee pain, right Procedures CONSULT TO ORTHOPAEDICS OFFICE/OUTPATIENT NEW HIGH MDM 60-74 MINUTES Rajan Malone DO [address] [place] [address] Referral ID Status Reason Start Date Expiration Date Visits Requested Visits Authorized [id number] Authorized PCP Requested Referral 01/11/2022 01/11/2023 1 1 Specialty Diagnoses / Procedures Referred By Contac t Referred To Contact XR IMAGING Diagnoses Chronic midline low back pain without sciatica Procedures XR LUMBAR GENERAL 3V AP/LAT/L5-S1 RADEX SPINE LUMBOSACRAL 2/3 VIEWS Rajan Malone DO [address] [place] [address] Xr Imaging Referral ID Status Reason Start Date Expiration Date Visits Requested Visits Authorized [id number] Pending Review Auto-Generat ed Referral 01/11/2022 02/10/2023 1 1 Specialty Diagnoses / Procedures Referred By Contac t Referred To Contact XR IMAGING Diagnoses Bilateral hip pain Medial knee pain, right Procedures XR HIP BILATERAL 5V PEL/AP/LAT EACH HIP RADEX HIPS BILATERAL WITH PELVIS MINIMUM 5 VIEWS Rajan Malone, DO [address] [place] [address] Xr Imaging Referral ID Status Reason Start Date Expiration Date Visits Requested Visits Authorized [id number] Pending Review Auto-Generat ed Referral 01/11/2022 02/10/2023 1 1 Specialty Diagnoses / Procedures Referred By Contac t Referred To Contact XR IMAGING Diagnoses Foot pain, bilateral Procedures XR FOOT GENERAL 3V AP/LAT/OBL BILATERAL RADEX FOOT COMPLETE MINIMUM 3 VIEWS Rajan Malone, DO [address] [place] [address] Xr Imaging Referral ID Status Reason Start Date Expiration Date Visits Requested Visits Authorized [id number] Pending Review Auto-Generat ed Referral 01/11/2022 02/10/2023 1 1 Specialty Diagnoses / Procedures Referred By Contact Referred To Contact [facility] Diagnoses 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) Medial knee pain, right Procedures CONSULT TO PHYSICAL THERAPY PHYSICAL THERAPY EVALUATION HIGH COMPLEX 45 MINS Claudia Walton MD [address] [place] [address] [facility] [address] [address] Referral ID Status Reason Start Date Expiration Date Visits Requested Visits Authorized [id number] Pending Review Auto-Generat ed Referral 02/17/2022 02/17/2023 [...] Will No February 15 10:43am Power of [employer] Bath Operator No February 15, 2018 10:43am Advance Directive Response Recorded Date/ Time Advance Directives No February 15, 2018 9:43am Living Will No February 15 9:43am Power of [employer] Bath Operator No February 15, 2018 9:43am Advance Directive [...] or prosecute any alcohol or drug abuse patient.[facility] the event this information is protected by the Federal Confidentiality of Alcohol and Drug Abuse Patient Records regulations: The Federal rules restrict any use of the information to criminally investigate or prosecute any alcohol or drug abuse patient.[facility] Hospital[facility] the event this information is protected by the Federal Confidentiality of Alcohol and Drug Abuse Patient Records regulations: The Federal rules restrict any use of the information to criminally investigate or prosecute any alcohol or drug abuse patient.[facility] Hospital[facility] the event this information is protected by the Federal Confidentiality of Alcohol and Drug Abuse Patient Records regulations: The Federal rules restrict any use of the information to criminally investigate or prosecute any alcohol or drug abuse patient.[facility] Hospital[facility] the event this information is protected by the Federal Confidentiality of Alcohol and Drug Abuse Patient Records regulations: The Federal rules restrict any use of the information to criminally investigate or prosecute any alcohol or drug abuse patient.[facility] the event this information is protected by the Federal Confidentiality of Alcohol and Drug Abuse Patient Records regulations: The Federal rules restrict any use of the information to criminally investigate or prosecute any alcohol or drug abuse patient.[facility] Hospital[facility] the event this information is protected by the Federal Confidentiality of Alcohol and Drug Abuse Patient Records regulations: The Federal rules restrict any use of the information to criminally investigate or prosecute any alcohol or drug abuse patient.[facility] HospitalIn the event this information is protected by the Federal Confidentiality of Alcohol and Drug Abuse Patient Records regulations: The Federal rules restrict any use of the information to criminally investigate or prosecute any alcohol or drug abuse patient.[facility] HospitalIn the event this information is protected by the Federal Confidentiality of Alcohol and Drug Abuse Patient Records regulations: The Federal rules restrict any use of the information to criminally investigate or prosecute any alcohol or drug abuse patient.[facility] HospitalIn the event this information is protected by the Federal Confidentiality of Alcohol and Drug Abuse Patient Records regulations: The Federal rules restrict any use of the information to criminally investigate or prosecute any alcohol or drug abuse patient.[facility] Hospital[facility] the event this information is protected by the Federal Confidentiality of Alcohol and Drug Abuse Patient Records regulations: The Federal rules restrict any use of the information to criminally investigate or prosecute any alcohol or drug abuse patient.[facility] HospitalIn the event this information is protected by the Federal Confidentiality of Alcohol and Drug Abuse Patient Records regulations: The Federal rules restrict any use of the information to criminally investigate or prosecute any alcohol or drug abuse patient.[facility] HospitalIn the event this information is protected by the Federal Confidentiality of Alcohol and Drug Abuse Patient Records regulations: The Federal rules restrict any use of the information to criminally investigate or prosecute any alcohol or drug abuse patient.[facility] HospitalIn the event this information is protected by the Federal Confidentiality of Alcohol and Drug Abuse Patient Records regulations: The Federal rules restrict any use of the information to criminally investigate or prosecute any alcohol or drug abuse patient.[facility] HospitalIn the event this information is protected by the Federal Confidentiality of Alcohol and Drug Abuse Patient Records regulations: The Federal rules restrict any use of the information to criminally investigate or prosecute any alcohol or drug abuse patient.[facility] HospitalIn the event this information is protected by the Federal Confidentiality of Alcohol and Drug Abuse Patient Records regulations: The Federal rules restrict any use of the information to criminally investigate or prosecute any alcohol or drug abuse patient.[facility] HospitalIn the event this information is protected by the Federal Confidentiality of Alcohol and Drug Abuse Patient Records regulations: The Federal rules restrict any use of the information to criminally investigate or prosecute any alcohol or drug abuse patient.[facility] HospitalIn the event this information is protected by the Federal Confidentiality of Alcohol and Drug Abuse Patient Records regulations: The Federal rules restrict any use of the information to criminally investigate or prosecute any alcohol or drug abuse patient.[facility] Reason for Visit (unrecogniz ed section and content) Reason Comments Right Knee Pain Reason Comments Follow Up Reason Comments Outside Labs-[facility] Ordered Reason Comments outside imaging Reason Comments Orders Reason Comments New Knee Pain Specialty Diagnoses / Procedures Referred By Bhavya gracia Referred To Contact Orthopedics Diagnoses 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) Medial knee pain, right Procedures CONSULT TO ORTHOPAEDICS OFFICE/OUTPATIENT NEW HIGH MDM 60-74 MINUTES Rajan Malone, DO [address] [facility] [address] Referral ID Status Reason Start Date Expiration Date V isits Requested Visits Authorized [id number] Closed PCP Requested Referral 01/11/2022 01/11/2023 1 1 Reason Comments Hypertension Reason Comments Blood Pressure Reason Onset Date Comments Results 09/22/2024 Reason Comments Yearly Exam Care Teams (unrecognized sec tion and content) Internal Medicine Doctor Relationship Specialty Start Date End Date Rajan Malone DO [address] [facility] [place] [address] PCP - General Family Practice 03/17/14 Internal Medicine Doctor Relationship Specialty Start Date End Date Rajan Malone DO [address] [facility] [place] [address] PCP - General Family Practice 03/17/14 Internal Medicine Doctor Relationship Specialty Start Date End Date Rajan Malone DO [address] [facility] [place] [address] PCP - General Family Medicine 03/17/14 Internal Medicine Doctor Relationship Specialty Start Date End Date Rajan Malone, DO [address] [facility] [place] [address] PCP - General Family Medicine 03/17/14 Internal Medicine Doctor Relationship Specialty Start Date End Date Rajan Malone DO [address] [facility] [place] [address] PCP - General Family Medicine 03/17/14 Internal Medicine Doctor Relationship Specialty Start Date End Date Rajan Malone DO [address] [facility] [place] [address] PCP - General Family Medicine 03/17/14 Internal Medicine Doctor Relationship Specialty Start Date End Date Rajan Malone DO [address] [facility] [address] PCP - General Family Medicine 03/17/14 Internal Medicine Doctor Relationship Specialty Start Date End Date Rajan Malone DO [address] [facility] [place] [address] PCP - General Family Medicine 03/17/14 Internal Medicine Doctor Relationship Specialty Start Date End Date Rajan Malone DO [address] [facility] [place] [address] PCP - General Family Medicine 03/17/14 Team [...] June 13, 2024 End: June 13, 2024 Internal Medicine Doctor Relationship Specialty Start Date End Date Rajan Malone DO [address] [facility] [place] [address] PCP - General Family Medicine 03/17/14 Elke Fierro, DIRECTOR [employer] [address] [facility] [place] [address] [facility] Family [facility] 02/17/24 Praveena Berry, DIRECTOR [employer] [address] [place] [address] Rod Finisher Family Medicine 08/25/24 Internal Medicine Doctor Relationship Specialty Start Date End Date Rajan Malone DO [address] [facility] [place] [address] PCP - General Family Medicine 03/17/14 Elke Fierro, DIRECTOR [employer] MANAGER [address] [facility] [place] [address] Rod Finisher Family Medicine 02/17/24 Praveena Berry, DIRECTOR [employer] MANAGER [address] [place] [address] Rod Finisher [facility] 08/25/24 Internal Medicine Doctor Relationship Specialty Start Date End Date Rajan Malone DO [address] [place] [address] PCP - General Family Medicine 03/17/14 Elke Fierro, DIRECTOR [employer] MANAGER [address] [place] [address] Rod Finisher Family Medicine 02/17/24 Praveena Berry, DIRECTOR [employer]NAGER [address] [place] [address] Rod Finisher Family [facility] 08/25/24 Internal Medicine Doctor Relationship Specialty Start Date End Date Rajan Malone DO [address] [facility] [place] [address] PCP - General Family Medicine 03/17/14 Elke Fierro, DIRECTOR [employer]GER [address] [facility] [place] [address] Rod Finisher Family Medicine 02/17/24 Praveena Berry, DIRECTOR [employer] [address] [place] [address] Rod Finisher Family [facility] 08/25/24 Internal Medicine Doctor Relationship Specialty Start Date End Date Rajan Malone DO [address] [place] [address] PCP - General Family Medicine 03/17/14 Elke Fierro, DIRECTOR [employer] MA[employer]GER [address] [place] [address] Rod Finisher Family Medicine 02/17/24 Praveena Berry, DIRECTOR [employer] MANAGER [address] [place] [address] [facility] Internal Medicine Doctor Relationship Specialty Start Date End Date Rajan Malone DO [address] [place] [address] PCP - General Family Medicine 03/17/14 Elke Fierro, DIRECTOR [employer] MANAGER [address] [place] [address] [facility] 02/17/24 Praveena Berry, DIRECTOR [employer] MANAGER [address] [place] [address] [facility] 08/25/24 Goals (unrecognized section and content) Goals may be documented in a n alternate sectionGoals may be documented in an alternate sectionGoals may be documented in an alternate sectionGoals may be documented in an alternate sectionGoals may be documented in an alternate section INFORMATION SOURCE (unrecogn ized section and content) DATE CREATED AUTHOR 11/26/2024 [facility] DATE CREATED AUTHOR 'S CONNOR ATDK 11/27/2024 [facility] FOR RECORDS PERTAINING TO PATIENTS WHO ARE [...] BE BASED ON THE PRIMARY CLINICAL RECORDS. [facility]. provides no warranty or guarantee of the accuracy or completeness of information in this document.
== END | disposition home or self-care (01) ==
PROVIDERS: PCP Student in an Organized Health Care Education/Training Program; Referring Provider Student in an Organized Health Care Education/Training Program; Visit Provider Student in an Organized Health Care Education/Training Program
DX: R03.0 Elevated blood-pressure reading, without diagnosis of hypertension (principal)
CPT/HCPCS: 93880; 93975

== ENCOUNTER → 2025-01-01 | Outpatient (CLI) | payer OTHER, SELFPAY ==
--- NOTE | 2025-01-01 09:36 | MRI_ITS ---
PROCEDURE: LOWER EXT JOINT ONLY W/WO CONT 01/01/2025 REASON FOR EXAM: ASEPTIC NECROSIS, KNEE TECHNIQUE: T1, T2, PD, postcontrast T1 fat-sat images of the right knee were obtained with and without contrast. Procedure Code: [id number] Modality: MR Procedure: LOWER EXT JOINT ONLY W/WO CONT CONTRAST: 18 cc Clariscan COMPARISON: None FINDINGS: Marrow: There is subcortical edema with low T1, low T2 signal rim in the posterior medial femoral condyle, measuring 2.0 by 1.3 cm with the appearance of osteonecrosis, with peripheral enhancement following contrast administration. Cruciate ligaments: The anterior and posterior cruciate ligaments appear intact. Collateral ligaments: The medial collateral ligament appears intact. The lateral collateral ligament complex appears intact. Menisci: There is a small radial tear of the anterior margin of the posterior horn of the lateral meniscus, coronal image 13/32. There is a radial tear in the posterior medial corner of the medial meniscus, coronal image 10/32, with extrusion of the body of the medial meniscus. Extensor mechanism: The distal quadriceps and patellar tendons appear intact. 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 Effusion: There is a small joint effusion. Plica are noted in the anterior lateral joint space. MRI/Lower Ext Joint Only W/WO Cont IMPRESSION: There is subcortical edema with low T1, low T2 signal rim in the posterior medi al femoral condyle, measuring 2.0 by 1.3 cm with the appearance of osteonecrosis, with peripheral enhancement following contrast administration. There is a small radial tear of the anterior margin of the posterior horn of th e lateral meniscus, coronal image 13/32. There is a radial tear in the posterior medial corner of the medial meniscus, c oronal image 10/32, with extrusion of the body of the medial meniscus. 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 There is a small joint effusion. Plica are noted in the anterior lateral joint space. Reading [facility]
== END | disposition home or self-care (01) ==
LOC: MRI 09:35
PROVIDERS: PCP Student in an Organized Health Care Education/Training Program; Referring Provider Nurse Practitioner Primary Care; Visit Provider Nurse Practitioner Primary Care
DX: M87.9 Osteonecrosis, unspecified (principal)
CPT/HCPCS: 73723; A9575; A4216